=== PATIENT | male | born 1955 | race Caucasian/White ===

== ENCOUNTER 2024-05-22 19:43 | Emergency (ER) | payer MEDICARE, SELFPAY ==
[2024-05-22] VITALS (9 sets, daily range): BP systolic 101–142; BP diastolic 61–82; PULSE 94–115; RESP 18–28; TEMP 36.7; O2SAT 93–94; BMI 19.8
--- NOTE | 2024-05-22 19:55 | PC.NURSE ---
patient bladder scanned with 882 in bladder noted. Spoke with Dr. Calhoun who orders gonzalez catheter to be placed.
[2024-05-22 20:14] LABS: Microscopic, Urine URINE MICROSCOPIC (MICROSCOPIC)
[2024-05-22 20:50] LABS: Basophils % 0.2 % (0.1-2.0); Eosinophils # 0.2 K/mm3 (0.0-0.4); Eosinophils % 1.6 % (0.1-12.0); Hematocrit 42.9 % (42.0-52.0); Hemoglobin 14.7 g/dL (14.1-18.0); Lymphocytes # 0.4 K/mm3 (0.7-4.5); Lymphocytes % 3.8 % (10-50); Mean Corpuscular HGB Conc 34.2 g/dL (31.8-35.4); Mean Corpuscular Hemoglobin 31.3 pg (27.0-31.2); Mean Corpuscular Volume 91.6 fl (80-94); Mean Platelet Volume 7.8 fl (7.4-10.4); Monocytes # 0.8 K/mm3 (0.1-1.0); Monocytes % 7.1 % (1.7-9.3); Neutrophils # 9.4 K/mm3 (1.8-7.8); Neutrophils % 87.2 % (37.0-80.0); Platelet Count 178 K/mm3 (142-424); Red Blood Count 4.68 M/mm3 (4.60-6.20); Red Cell Distribution Width 13.6 % (11.5-17.5); White Blood Count 10.7 K/mm3 (4.8-10.8)
[2024-05-22 20:52] LABS: MANUAL DIFFERENTIAL MANUAL DIFFERENTIAL (MANUAL DIFF)
[2024-05-22 21:26] LABS: Lymphocytes % 7 % (10-50); Monocytes % 1 % (2-9); Neutrophils % 91 % (42-76); Total Cells Counted 100
[2024-05-22 21:27] LABS: RBC Morphology Normal
[2024-05-22 21:28] LABS: Appearance,Urine CLEAR (Clear); Bilirubin,Urine Negative (Negative); Blood, Urine 3+ (Negative); Color,Urine YELLOW (Yellow); Glucose,Urine (UA) Negative (Negative); Ketones,Urine Negative (Negative); Leukocyte Esterase,Urine Negative (Negative); Nitrate,Urine Negative (Negative); Protein,Urine Negative (Negative); Urobilinogen,Urine 0.2 EU/dl (0.2)
[2024-05-22 21:29] LABS: Alanine Aminotransferase 22 U/L (12-78); Albumin Level 3.9 g/dl (3.5-5.0); Albumin/Globulin Ratio 1.3 (1.1-1.8); Alkaline Phosphatase 80 U/L (38-126); Anion Gap 8.8 mEq/L (5-15); Aspartate Amino Transferase 60 U/L (17-59); Bilirubin,Total 1.1 mg/dl (0.2-1.3); Blood Urea Nitrogen 25 mg/dl (9-20); Calcium 9.7 mg/dl (8.4-10.2); Carbon Dioxide 27 mmol/L (22.0-30.0); Chloride 107 mmol/L (98-107); Creatinine Clearance Estimated 59 mL/min (50-200); Estimated Glomerular Filt Rate 74 ml/min (>60); GFR (African American) 90 ML/MIN (>60); Glucose 123 mg/dl (74-100); Potassium 3.8 mmoL/L (3.5-5.1); Sodium 139 mmol/L (136-145); Total Protein,Serum 6.9 g/dl (6.3-8.2)
--- NOTE | 2024-05-22 21:40 | ED_ITS ---
Discharge Plan Disposition Patient Disposition: Home, Self-Care Referrals Follow up/Referrals: Jluis Sexton MD [Staff Physician] - See instructions Provider,MD Mili [Primary Care Provider] - See instructions Activity Restrictions/Add. Instructions Additional Instructions/Restrictions: Call your family doctor to establish care for this visit to the emergency department and schedule follow-up within 48 hours to ensure improvement. If you have any worsening of your condition or any other concerning signs or symptoms, return to the emergency department or your primary care doctor for further evaluation. Be sure to clean Villarreal catheter daily as instructed. Follow-up with Dr. Sexton for further management. Clinical Impressions Clinical Impression: Acute urinary retention Instructions Patient Instructions: DI for Acute Abdominal Pain Discharge ED Provider: Maxx Calhoun General Adult HPI General Chief complaint: Abdominal Pain Stated complaint: ABD pain Time Seen by Provider: 05/22/24 19:56 Mode of Arrival: EMS Source of Information: Patient and EMS Limitations: unsteady on feet Description of Symptoms (Recalled from ER Triage Doc. by RN): Pt. presented to the ED with c/o abdominal pain and unable to urinate. Pt. also has HX lung cancer and COPD, Pt, has congested cough. History of Present Illness HPI narrative: Please note that above description of symptoms, in this electronic medical record under categorization of recalled from ER triage doctor by RN are reflective of an initial nursing assessment, however, is not reflective of my full history and physical exam that was personally taken and clarified. Consequentially, this preceding description of symptoms, which may include the patient's categorized chief complaint in the EMR, do not reflect my personal clinical impression, and the ultimate description of history of present illness and patient stated complaints should be deferred to this section of the note. Unless stated otherwise or congruent with this section of the note, additional signs, symptoms, or incongruence should be interpreted as inaccurate with my clinical impression. Related Data Allergies Allergy/AdvReac Type Severity Reaction Status Date / Time No Known Allergies Allergy Verified 05/22/24 20:07 [facility] Disclaimer: The information contained in this section may have been updated after the patient was seen, as this information can be updated by other users. Social History Smoking Status: Current every day smoker alcohol intake: former current occupational status: unemployed Travel in the last 8 weeks: None ROS Obtained: Yes All systems reviewed & no additional complaints except as documented Physical Exam General General appearance: alert and in no apparent distress Head Head exam: atraumatic and normocephalic Eye Eye exam: Present normal appearance, PERRL and EOMI ENT ENT exam: Present mucous membranes moist Neck Neck exam: Present normal inspection, full ROM and trachea midline Respiratory Respiratory exam: Absent respiratory distress, wheezes, stridor, accessory muscle use or prolonged expiratory phase Cardiovascular Cardiovascular exam: Present normal rhythm Abdominal Exam Abdominal exam: Present soft, distention and tenderness; Absent guarding, rebound or rigidity Extremities Exam Extremities exam: Absent edema Neurological Exam Neurological exam: Present alert, oriented X3, CN II-XII intact and normal gait; Absent motor sensory deficit Skin Skin exam: Present warm and dry; Absent diaphoresis or erythema Medical Decision Making Medical Records Medical records reviewed: Yes I reviewed the patient's medical records. Aiden Inquiry Pt receiving controlled substance: No Aiden was queried for this patient: No Vital Signs: 05/22/24 19:43 Temperature 98.1 F Temperature Source Oral Pulse Rate [Right Radial] 115 H Respiratory Rate 28 H Blood Pressure [Right Arm] 142/79 H Blood Pressure Mean [Right Arm] 100 Blood Pressure Source [Right Arm] Automatic Cuff Blood Pressure Position [Right Arm] Supine 02 Sat by Pulse Oximetry 93 L Oxygen Delivery Method Room Air Lab Data Lab Results 05/22/24 20:02: Urine Color Yellow, Urine Appearance Clear, Urine pH 6.0, Ur Specific [place] 1.020, Urine Protein Negative, Urine Glucose (UA) Negative, Urine Ketones Negative, Urine Blood 3+, Urine Nitrate Negative, Urine Bilirubin Negative, Urine Urobilinogen 0.2, Ur Leukocyte Esterase Negative, Urine RBC 50- 100, Urine WBC Occasional, Ur Squamous Epith Cells Occasional, Urine Bacteria Trace 05/22/24 20:40: WBC 10.7, RBC 4.68, Hgb 14.7, Hct 42.9, MCV 91.6, MCH 31.3 H, MCHC 34.2, RDW 13.6, Plt Count 178, MPV 7.8, Neut % (Auto) 87.2 H, Lymph % (Auto) 3.8 L, [place] % (Auto) 7.1, Eos % (Auto) 1.6, Baso % (Auto) 0.2, Neut # (Auto) 9.4 H, Lymph # (Auto) 0.4 L, [place] # (Auto) 0.8, Eos # (Auto) 0.2, Baso # (Auto) 0.0, Total Counted 100, Neutrophils % (Manual) 91 H, Lymphocytes % (Manual) 7 L, Atypical Lymphs % 1.0, Monocytes % (Manual) 1 L, RBC Morphology Normal, Sodium 139, Potassium 3.8, Chloride 107, Carbon Dioxide 27, Anion Gap 8.8, BUN 25 H, Creatinine 1.00, Estimated Creat Clear 59, Estimated GFR 74, Est GFR ( Amer) 90, Glucose 123 H, Calcium 9.7, Total Bilirubin 1.1, AST 60 H , ALT 22, Alkaline Phosphatase 80, Total Protein 6.9, Albumin 3.9, Globulin 3.0, Albumin/Globulin Ratio 1.3 05/22/24 20:40 05/22/24 20:40 Orders (Tests/Meds): ORDERS Category Date Time Status CBC w/Auto Diff [Complete Blood Count Auto Diff] Stat Lab 05/22/24 20:40 Completed CMP [Comprehensive Metabolic Panel] Stat Lab 05/22/24 20:40 Completed UA [Urinalysis and Microscopic] Stat Lab 05/22/24 20:02 Completed Medical Decision Narrative: 68-year-old male history of hypertension, hyperlipidemia, CVA, BPH presenting with urinary retention. Patient states that he was unable to urinate since last night, 05/21 or this morning, 05/22. States that he has tenderness, pain in his lower abdomen. No fevers or chills, nausea or vomiting. Had pain with this in the past and had complications, but has never had it worked up fully. States that he was in the process of getting it worked up when he had his stroke and never followed up. History was obtained via conversation with patient. On arrival, patient hemodynamically stable, alert, oriented x4, appropriate, GCS 15, moving all extremities spontaneously, pupils equal and reactive to light. Full physical exam performed and significant for uncomfortable appearing 68-year-old male in no acute distress. Abdomen is soft and mildly tender and distended in suprapubic area. No overlying skin changes. No flank tenderness. No blood at urethral meatus. Differential includes BPH, UTI, CELSO, among others. Bladder scan greater than 800. Villarreal catheter was placed and anchored. Greater than 1200 mL out. Interpretation of workup with nonactionable CBC or chemistry. Normal kidney function. Urinalysis without UTI. Because patient at baseline without signs or symptoms of clinical decompensation, deemed appropriate for discharge. Results were relayed to patient who voiced understanding and were agreeable to outpatient management and follow up. I discussed my clinical impression with patient and answered all questions. At this time, the evidence for any other entities in the differential is insufficient to warrant any further testing or ED observation. This was explained as well. Advisory was given that persistent or worsening symptoms require further evaluation. I confirmed the understanding of this discussion. Senior Web Analyst disclaimer Much of this encounter note is an electronic bag end sewer spoken language to printed text. Electronic bag end sewer of the spoken language may permit errors. Although I have reviewed the note, some errors may still exist. Critical Care Critical Care Time Critical Care Time: No
[2024-05-22 21:51] LABS: Bacteria,Urine Trace /lpf; RBC,Urine 50-100 #/hpf (0-3); Squamous Epithelial Cell,Urine Occasional #/hpf (0-5); WBC,Urine Occasional #/hpf (0-3)
--- NOTE | 2024-05-22 22:37 | PC.NURSE ---
SALLY spoke with patient daughter, Rosa. She reports that she lives in [place] and is currently working on patient transportation back to [facility] in [place], [place]
--- NOTE | 2024-05-22 23:17 | PC.NURSE ---
Pt. resting, unable to get a hold of family or friendfor a ride home
[2024-05-23] VITALS (10 sets, daily range): BP systolic 96–133; BP diastolic 41–67; PULSE 60–108; RESP 12–23; TEMP 36.7; O2SAT 93–98
--- NOTE | 2024-05-23 | PC.NURSE ---
Patient resting in room at this time. No complaints. Still unable to find patient transportation home at this time. Provided pt with blanket, and offered food and water. Pt declined at this time.
--- NOTE | 2024-05-23 01:00 | PC.NURSE ---
Patient provided sandwich and chips per request, along with ice water. Tray set up, and patient positioned to comfort. No further needs voiced.
--- NOTE | 2024-05-23 02:00 | PC.NURSE ---
Patient asleep in room on stretcher. Breaths even, unlabored at this time.
--- NOTE | 2024-05-23 03:00 | PC.NURSE ---
Patient asleep in room at this time. Respirations even and unlabored. Still awaiting callback from daughter about patient transportation
--- NOTE | 2024-05-23 04:12 | PC.NURSE ---
Pt. sleeping, vital signs stable.
--- NOTE | 2024-05-23 04:15 | PC.WOUNDNOTE ---
Patient is asleep in room. vital signs stable, Resp easy and non labored. awaiting call back from family about transportation.
--- NOTE | 2024-05-23 05:13 | PC.NURSE ---
pt resting quietly. call light within reach
--- NOTE | 2024-05-23 06:00 | PC.NURSE ---
Patient resting in bed at this time. Respirations even and unlabored
--- NOTE | 2024-05-23 08:52 | PC.NURSE ---
spoke with bus transportation for pt. states the client account representative will call when they are in route. approx 3 hours or less. trip # [id number]
--- NOTE | 2024-05-23 10:05 | PC.NURSE ---
danielle gonzalez is in place at this time pt is waiting for bus for ride home call light in reach and warm blanket given no other needs at this time
== END 2024-05-23 11:41 | disposition home or self-care (01) ==
PROVIDERS: Emergency Provider Emergency Medicine
DX: R10.30 Lower abdominal pain, unspecified; F17.210 Nicotine dependence, cigarettes, uncomplicated; I10 Essential (primary) hypertension; E78.5 Hyperlipidemia, unspecified; N40.0 Benign prostatic hyperplasia without lower urinary tract symptoms; R33.9 Retention of urine, unspecified
CPT/HCPCS: 51702; 80053; 81001; 85007; 85025; 85027; 99283

== ENCOUNTER 2024-05-24 20:25 | Emergency (ER) | payer MEDICARE, SELFPAY ==
[2024-05-24 20:25] VITALS: BP 157/79; PULSE 92; RESP 18; TEMP 36.3; O2SAT 96; BMI 20.5
--- NOTE | 2024-05-24 21:30 | ED_ITS ---
Discharge Plan Disposition Patient Disposition: Home, Self-Care Prescriptions Prescriptions: New levofloxacin 750 mg tablet 750 mg PO DAILY 7 Days Qty: 7 0RF Referrals Follow up/Referrals: Jluis Sexton MD [Staff Physician] - See instructions Provider,MD Mili [Primary Care Provider] - See instructions Activity Restrictions/Add. Instructions Additional Instructions/Restrictions: At this time it was felt you are safe to be discharged home. If new or worsening symptoms please do not hesitate to return the emergency department. Please call and schedule an appointment with Dr. Sexton as soon as you are able. Clinical Impressions Clinical Impression: Gonzalez catheter in place, Acute UTI Instructions Patient Instructions: DI for Acute Abdominal Pain Discharge ED Provider: Sujit Muller General Adult HPI General Chief complaint: Abdominal Pain Stated complaint: issues with catheter Time Seen by Provider: 05/24/24 20:59 Mode of Arrival: EMS Source of Information: Patient and EMS Limitations: No Limitations Description of Symptoms (Recalled from ER Triage Doc. by RN): Patient is brought to ED via [facility] and reports abd pain, nasuea, and pain from gonzalez catheter that patient was d/c with last night. Patient states he has no one to help assist in care at home. History of Present Illness HPI narrative: Patient is a 68-year-old male who presents emergency department for evaluation of things related to his catheter. Patient states that he has had difficulty peeing for a long time and has problems with his prostate. He presented yesterday where reportedly Gonzalez was anchored and he was not instructed how to empty it. Today his bag filled up and he began having suprapubic pain and he did not have to empty it so he called 911 to present here for continued evaluation. He has some suprapubic pain upon arrival, no other acute complaints at this time. Per chart review patient was seen by Dr. Calhoun and was found to be in acute urinary retention where Gonzalez was anchored and had improvement of symptoms, hematologic labs are nonactionable. He was discharged with Dr. Sexton follow-up. Review of urinalysis from yesterday shows hematuria in the setting of anchoring the Gonzalez, no evidence of infection although trace bacteria. Related Data Previous Rx's Medication Instructions Recorded levofloxacin 750 mg tablet 750 mg PO DAILY UTI 7 days #7 tabs 05/24/24 Allergies Allergy/AdvReac Type Severity Reaction Status Date / Time No Known Allergies Allergy Verified 05/22/24 20:07 [facility] Disclaimer: The information contained in this section may have been updated after the patient was seen, as this information can be updated by other users. Social History (Updated 05/22/24 @ 22:50 by Maxx Calhoun MD) Smoking Status: Current every day smoker alcohol intake: former current occupational status: unemployed Travel in the last 8 weeks: None ROS Obtained: Yes Systems reviewed as appropriate & no additional complaints except as documented Physical Exam General General appearance: alert and in no apparent distress Head Head exam: atraumatic and normocephalic Eye Eye exam: Present PERRL ENT ENT exam: Present mucous membranes moist Neck Neck exam: Present normal inspection Chest Chest inspection: Present normal inspection and symmetric chest wall rise Respiratory Respiratory exam: Absent respiratory distress Cardiovascular Cardiovascular exam: Present regular rate and normal rhythm Abdominal Exam Abdominal exam: Present soft; Absent tenderness, guarding or rebound Extremities Exam Extremities exam: Present normal inspection Neurological Exam Neurological exam: Present alert Psychiatric Psychiatric exam: Present normal affect Skin Skin exam: Present warm and dry Medical Decision Making Aiden Inquiry Pt receiving controlled substance: No Vital Signs: 05/24/24 20:25 Temperature 97.4 F L Temperature Source Oral Pulse Rate [Right Radial] 92 H Respiratory Rate 18 Blood Pressure [Right Arm] 157/79 H Blood Pressure Mean [Right Arm] 105 Blood Pressure Source [Right Arm] Automatic Cuff Blood Pressure Position [Right Arm] Supine 02 Sat by Pulse Oximetry 96 Oxygen Delivery Method Room Air Lab Data Lab Results 05/24/24 20:27: WBC 7.3 D, RBC 4.84, Hgb 15.2, Hct 45.9, MCV 94.9 H, MCH 31.5 H , MCHC 33.2, RDW 13.7, Plt Count 164, MPV 9.1, Neut % (Auto) 83.4 H, Lymph % (Auto) 8.5 L, [place] % (Auto) 6.1, Eos % (Auto) 1.6, Baso % (Auto) 0.4, Neut # (Auto) 6.1, Lymph # (Auto) 0.6 L, [place] # (Auto) 0.4, Eos # (Auto) 0.1, Baso # (Auto) 0.0, Sodium 143, Potassium 3.6, Chloride 106, Carbon Dioxide 32 H, Anion Gap 8.6, BUN 26 H, Creatinine 0.90, Estimated Creat Clear 61, Estimated GFR 84, Est GFR ( Amer) 102, Glucose 96, Calcium 9.6, Total Bilirubin 0.7, AST 38 D, ALT 21, Alkaline Phosphatase 76, Total Protein 7.4, Albumin 4.0, Globulin 3.4 H, Albumin/Globulin Ratio 1.2 05/24/24 20:29: Urine Color Dark yellow, Urine Appearance Cloudy, Urine pH 6.0, Ur Specific [place] 1.025, Urine Protein 1+, Urine Glucose (UA) Negative, Urine Ketones Negative, Urine Blood 3+, Urine Nitrate Negative, Urine Bilirubin 1+ A, Urine Urobilinogen 0.2, Ur Leukocyte Esterase Negative, Urine RBC Occasional, Urine WBC 3-5, Ur Squamous Epith Cells Occasional, Urine Bacteria 4+ 05/24/24 20:27 05/24/24 20:27 Orders (Tests/Meds): ED MEDICATIONS Discontinued Medications Generic Name Dose Route Start Last Admin Trade Name Samina PRN Reason Stop Dose Admin Acetaminophen 1,000 mg 05/24/24 21:31 05/24/24 21:46 Acetaminophen 1,000mg/100ml Vial IV 05/24/24 21:32 1,000 mg ONCE ONE Administration Ondansetron HCl 4 mg 05/24/24 21:31 05/24/24 21:46 Ondansetron 4mg/2ml Vial IV 05/24/24 21:32 4 mg ONCE ONE Administration ORDERS Category Date Time Status CBC w/Auto Diff [Complete Blood Count Auto Diff] Stat Lab 05/24/24 20:27 Completed CMP [Comprehensive Metabolic Panel] Stat Lab 05/24/24 20:27 Completed UA [Urinalysis and Microscopic] Stat Lab 05/24/24 20:29 Completed Urine Culture Stat Micro 05/24/24 20:29 Received Medical Decision Narrative: In summary patient is a 68-year-old male with past medical history described above who presents emergency department for evaluation of Gonzalez complications. Patient is hemodynamically stable nontoxic-appearing arrival, afebrile. Patient is only mildly tender in the suprapubic region, no focal tenderness otherwise. Gonzalez catheter was emptied and Gonzalez care was educated at bedside. Workup be conducted with hematologic labs and repeat urinalysis will be obtained to trend and assess for interval changes. Initial interventions include Zofran, IV Tylenol. Initial workup reviewed by me, hematologic labs are nonactionable, no CELSO or critical electrolyte abnormality, no significant leukocytosis. Urinalysis interpreted by me and not consistent with overt infection however given that patient has indwelling Gonzalez, 4+ bacteria and suprapubic discomfort will be treated empirically for complicated UTI with fluoroquinolone. First dose will be given here. Patient is appropriate for outpatient management at this time and was discharged with a course of antibiotics and will follow-up on an outpatient basis with Dr. Sexton. Critical Care Critical Care Time Critical Care Time: No
[2024-05-24 21:34] LABS: Microscopic, Urine URINE MICROSCOPIC (MICROSCOPIC)
[2024-05-24 21:38] LABS: Chloride 106 mmol/L (98-107)
[2024-05-24 21:39] LABS: Potassium 3.6 mmoL/L (3.5-5.1); Sodium 143 mmol/L (136-145)
[2024-05-24 21:41] LABS: Appearance,Urine CLOUDY (Clear); Blood, Urine 3+ (Negative); Color,Urine DARK YELLOW (Yellow); Glucose,Urine (UA) Negative (Negative); Ketones,Urine Negative (Negative); Leukocyte Esterase,Urine Negative (Negative); Nitrate,Urine Negative (Negative); Protein,Urine 1+ (Negative); Specific Gravity, Urine 1.025 (1.005-1.030); Urobilinogen,Urine 0.2 EU/dl (0.2)
[2024-05-24 21:41] LABS: Alanine Aminotransferase 21 U/L (12-78); Albumin/Globulin Ratio 1.2 (1.1-1.8); Alkaline Phosphatase 76 U/L (38-126); Anion Gap 8.6 mEq/L (5-15); Aspartate Amino Transferase 38 U/L (17-59); Bilirubin,Total 0.7 mg/dl (0.2-1.3); Blood Urea Nitrogen 26 mg/dl (9-20); Carbon Dioxide 32 mmol/L (22.0-30.0); Creatinine Clearance Estimated 61 mL/min (50-200); Estimated Glomerular Filt Rate 84 ml/min (>60); GFR (African American) 102 ML/MIN (>60); Globulin 3.4 g/dL (1.3-3.2); Total Protein,Serum 7.4 g/dl (6.3-8.2)
[2024-05-24 21:42] LABS: Calcium 9.6 mg/dl (8.4-10.2); Glucose 96 mg/dl (74-100)
[2024-05-24 21:45] LABS: Basophils % 0.4 % (0.1-2.0); Eosinophils # 0.1 K/mm3 (0.0-0.4); Eosinophils % 1.6 % (0.1-12.0); Hematocrit 45.9 % (42.0-52.0); Hemoglobin 15.2 g/dL (14.1-18.0); Lymphocytes # 0.6 K/mm3 (0.7-4.5); Lymphocytes % 8.5 % (10-50); Mean Corpuscular HGB Conc 33.2 g/dL (31.8-35.4); Mean Corpuscular Hemoglobin 31.5 pg (27.0-31.2); Mean Corpuscular Volume 94.9 fl (80-94); Mean Platelet Volume 9.1 fl (7.4-10.4); Monocytes # 0.4 K/mm3 (0.1-1.0); Monocytes % 6.1 % (1.7-9.3); Neutrophils # 6.1 K/mm3 (1.8-7.8); Neutrophils % 83.4 % (37.0-80.0); Platelet Count 164 K/mm3 (142-424); Red Blood Count 4.84 M/mm3 (4.60-6.20); Red Cell Distribution Width 13.7 % (11.5-17.5); White Blood Count 7.3 K/mm3 (4.8-10.8)
[2024-05-24] MEDS: ACETAMINOPHEN 1,000MG/100ML VIAL 1000 MG IV (21:46)
[2024-05-24] MEDS: ONDANSETRON 4MG/2ML VIAL 4 MG IV (21:46)
[2024-05-24 22:01] VITALS: BP 142/80; PULSE 100
[2024-05-24 22:01] LABS: Bilirubin,Urine 1+ (Negative)
[2024-05-24 22:06] LABS: Bacteria,Urine 4+ /lpf; RBC,Urine Occasional #/hpf (0-3); Squamous Epithelial Cell,Urine Occasional #/hpf (0-5)
[2024-05-24 22:31] VITALS: BP 121/61; PULSE 91; O2SAT 95
[2024-05-24 23:00] VITALS: BP 97/53; O2SAT 94
[2024-05-24] MEDS: levoFLOXacin 750 MG TABLET PO (23:05)
[2024-05-24 23:30] VITALS: BP 83/54; PULSE 82
[2024-05-25] VITALS (9 sets, daily range): BP systolic 90–124; BP diastolic 54–82; PULSE 72–86; RESP 18; TEMP 36.8; O2SAT 91–95
--- NOTE | 2024-05-25 02:53 | PC.NURSE ---
Patient states he can not take care of himself at home, went into room and reassessed patient. Patient is able to open a water bottle independently, and will be able to empty his Villarreal bag at home. Detailed instructions and visual was given to patient when he first arrived to ED on how to empty Villarreal bag. Patient states he has no family/friends to transport back home at this time. Patient will have to wait for city transport in the AM to return back home. Patient voices no pain/concerns at this time.
--- NOTE | 2024-05-25 07:38 | PC.NURSE ---
attempted to call mr bauman brother (x2)who is listed in his contacts no answer
--- NOTE | 2024-05-25 07:45 | PC.NURSE ---
spoke with froy in care managment states [facility] can take him back but will be considered self pay, pt will have to pay $25 for his ride home. I spoke with pt asking if he was able to pay $25 for the bus ride home and he stated he does not have the money on him.
--- NOTE | 2024-05-25 07:50 | PC.NURSE ---
pt demonstrated using his gonzalez leg bag to empty his urine into the urinal, pt did this successful.
--- NOTE | 2024-05-25 07:58 | PC.NURSE ---
Spoke with pt who states that he is concerned for outpt services for him to fu for his gonzalez, contacted Coretta in for additional information in arranging this for pt, unfortunately there is no available services in [facility] for this other than the transportation van which the pt will have to pay for.
--- NOTE | 2024-05-25 08:12 | PC.NURSE ---
pt is upset because we will not admit him here to take care of his gonzalez, cause he states he dont want to take care of his gonzalez and feels that he needs someone else to do that for him. Educated the pt on admission criteria for the hospital and our facility doesn't offer inpt urologist. Asked pt if he would like to look into a retirement if he felt he was unable to care for his self, pt states that he cant afford that cause his insurance wont pay for that but it will pay for admission and we are a hospital and we should admit for treatment. Discussed pt concern with , at this time MD feels that pt does not have admission criteria.
--- NOTE | 2024-05-25 08:52 | PC.NURSE ---
attempted to call brother with no answer.
--- NOTE | 2024-05-25 09:18 | PC.NURSE ---
PT given funds by [facility] for the [facility] to travel home.
--- NOTE | 2024-05-25 09:36 | SW/DCPLANNER ---
I have arranged [facility] [employer] for this patient. ID [id number]
== END 2024-05-25 10:20 | disposition home or self-care (01) ==
PROVIDERS: Emergency Provider Emergency Medicine
DX: T83.511A Infection and inflammatory reaction due to indwelling urethral catheter, initial encounter (principal); B96.1 Klebsiella pneumoniae [K. pneumoniae] as the cause of diseases classified elsewhere; F17.210 Nicotine dependence, cigarettes, uncomplicated; Z96.0 Presence of urogenital implants; N39.0 Urinary tract infection, site not specified
CPT/HCPCS: 80053; 81001; 85025; 87086; 87088; 87186; 96361; 96374; 96375; 99284; J0131; J2405

== ENCOUNTER 2024-06-11 16:02 | Outpatient (CLI) | payer MEDICARE, SELFPAY ==
[2024-06-11 18:05] LABS: Microscopic, Urine URINE MICROSCOPIC (MICROSCOPIC)
[2024-06-11 19:24] LABS: Appearance,Urine TURBID (Clear); Blood, Urine 3+ (Negative); Color,Urine RED (Yellow); Glucose,Urine (UA) TRACE (Negative); Ketones,Urine 2+ (Negative); Leukocyte Esterase,Urine 2+ (Negative); Nitrate,Urine POSITIVE (Negative); PH,Urine >= 9.0 (5.0-8.5); Protein,Urine 3+ (Negative); Specific Gravity, Urine <= 1.005 (1.005-1.030)
[2024-06-11 19:25] LABS: Bilirubin,Urine 3+ (Negative)
[2024-06-11 19:46] LABS: Bacteria,Urine 2+ /lpf; RBC,Urine 20-50 #/hpf (0-3)
[2024-06-11 19:47] LABS: Other Crystals,Urine Trace /lpf; Squamous Epithelial Cell,Urine Occasional #/hpf (0-5); Triple Phosphate Crystal,Urine 1+ /lpf
== END 2024-06-11 23:59 | disposition home or self-care (01) ==
LOC: LAB.DROPOF 06-12 10:11
PROVIDERS: PCP Nurse Practitioner; Visit Provider Nurse Practitioner
DX: N39.0 Urinary tract infection, site not specified (principal); B96.89 Other specified bacterial agents as the cause of diseases classified elsewhere
CPT/HCPCS: 81001; 87077; 87086; 87088

== ENCOUNTER 2024-06-15 21:58 | Observation (INO) | payer MEDICARE, SELFPAY ==
[2024-06-15 21:58] VITALS: BP 140/88; PULSE 127; RESP 20; TEMP 36.9; O2SAT 95; BMI 19.0
--- NOTE | 2024-06-15 22:04 | CT_ITS ---
PROCEDURE INFORMATION: Exam: CT Abdomen And Pelvis With Contrast Exam date and time: 06/15/2024 11:04 PM Age: 68 years old Clinical indication: Abdominal pain; Additional info: Lower abdominal pain TECHNIQUE: Imaging protocol: Computed tomography of the abdomen and pelvis with contrast. Radiation optimization: All CT scans at this facility use at least one of these dose optimization techniques: automated exposure control; mA and/or kV adjustment per patient size (includes targeted exams where dose is matched to clinical indication); or iterative reconstruction. Contrast material: ISOVUE; Contrast volume: 75 ml; Contrast route: IV; COMPARISON: No relevant prior studies available. FINDINGS: Tubes, catheters and devices: Villarreal catheter is present. Lungs: The visualized lung bases demonstrate no focal infiltrates or pleural effusions. Liver: The liver appears within normal limits. Gallbladder and biliary ducts: The gallbladder is normal. There is no evidence of biliary ductal dilation. Pancreas: The pancreas is normal. Spleen: The spleen is normal. Adrenal glands: Right adrenal adenoma measures 18 mm. Kidneys and ureters: The kidneys are normal. Stomach and bowel: The stomach appears within normal limits. No wall thickening or inflammatory change. Moderate retained stool within the cecum, ascending and transverse colon. The cecum in particular is significantly distended with stool and there is the presence of a mobile cecum which extends into the midline at the level of the upper pelvis. There are changes of diverticulosis without evidence for diverticulitis noted within the sigmoid colon.. Appendix: No evidence of appendicitis. Intraperitoneal space: No free air. No evidence for focal fluid collection or ascites. No evidence for omental thickening. Vasculature: Severe atherosclerotic calcifications of the aorta. 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 High-grade stenosis within the remainder of the right external iliac artery. Lymph nodes: Unremarkable. No pathologically enlarged lymph nodes are identified. Urinary bladder: Hyperenhancement of the mucosa of the bladder with bladder wall thickening and surrounding stranding suggesting acute cystitis. Bladder is otherwise normal. There is a small amount of intraluminal air consistent with instrumentation. Reproductive: Mild diffuse enlargement of the prostate gland. Prostate measures 5 cm diameter. Bones/joints: Unremarkable. No acute fracture. Soft tissues: Unremarkable. IMPRESSION: 1. Hyperenhancement of the mucosa of the bladder with bladder wall thickening and surrounding stranding suggesting acute cystitis. 2. Moderate retained stool within the cecum, ascending and transverse colon. The cecum in particular is significantly distended with stool and there is the presence of a mobile cecum which extends into the midline at the level of the upper pelvis. 3. Diverticulosis without CT evidence to suggest diverticulitis. 4. Mild diffuse enlargement of the prostate gland. Prostate measures 5 cm diameter. 5. 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 High-grade stenosis within the remainder of the right external iliac artery.
--- NOTE | 2024-06-15 22:13 | ED_ITS ---
Discharge Plan Disposition Patient Disposition: Admitted Clinical Impressions Clinical Impression: Complication, blocked Villarreal catheter, Abdominal pain, lower, Hematuria, CELSO (acute kidney injury), Transaminitis, Chronic UTI Discharge ED Provider: Andrew Kendall General Adult HPI <Adriana Wolfe DO - Last Filed: 06/15/24 23:00> General Chief complaint: Abdominal Pain Stated complaint: Abdominal Pain Time Seen by Provider: 06/15/24 22:03 History of Present Illness HPI narrative: This patient is a 68-year-old male with a history of urinary retention with indwelling Villarreal catheter, peripheral vascular disease, mood disorder, prior CVA, hyperlipidemia, anticoagulation with Eliquis presenting with concern for lower abdominal pain. He notes that he feels like he needs to be but cannot. He states that he emptied a very small amount of urine out of his leg bag around 3 PM, but it has had no urine in it since then. He does note that he is on antibiotic treatment for urinary tract infection, which has been on for approximately 2 weeks. He is not sure what he is taking. On medical record review from his primary care provider, it appears that he was seen and was taken off of Levaquin and prescribed Bactrim 06/11/2024. He was also given urology referral, but it appears he is not yet seen them. He was given a dose of IM Rocephin at that time. I believe his Villarreal has been in place since he was here at the beginning of May. Related Data Home Medications ?Medication ?Instructions ?Recorded ?Confirmed apixaban 5 mg tablet 5 mg PO BID 06/11/24 06/11/24 aspirin 81 mg tablet,delayed 81 mg PO DAILY 06/11/24 06/11/24 release (Adult Aspirin Regimen) atorvastatin 40 mg tablet (Lipitor) 40 mg PO HS 06/11/24 06/11/24 calcium carbonate 500 mg-vitamin 1 tab PO BID 06/11/24 06/11/24 D3 10 mcg (400 unit) tablet carvedilol 3.125 mg tablet 3.125 mg PO BID 06/11/24 06/11/24 ergocalciferol (vitamin D2) 1,250 1,250 mcg PO WEEKLY 06/11/24 06/11/24 mcg (50,000 unit) capsule fluticasone fur. 100 mcg-umeclid 1 inh inhalation DAILY 06/11/24 06/11/24 62.5 mcg-vilant 25 mcg inhalat.powder (Trelegy Ellipta) sertraline 50 mg tablet 50 mg PO DAILY 06/11/24 06/11/24 Previous Rx's ?Medication ?Instructions ?Recorded sulfamethoxazole 800 1 tab PO BID #20 tabs 06/11/24 mg-trimethoprim 160 mg tablet (Bactrim DS) Allergies Allergy/AdvReac Type Severity Reaction Status Date / Time No Known Allergies Allergy Verified 06/11/24 15:28 PFSH <Adriana Wolfe DO - Last Filed: 06/15/24 23:00> [facility] Disclaimer: The information contained in this section may have been updated after the patient was seen, as this information can be updated by other users. Medical History (Updated 06/15/24 @ 22:58 by Adriana Wolfe DO) Unspecified mood [affective] disorder Peripheral vascular disease Atherosclerosis of aorta Acute UTI Acute urinary retention Villarreal catheter in place Surgical History (Updated 06/16/24 @ 01:52 by Jorge Vaz, RAZIA) Previous back surgery Social History (Updated 06/16/24 @ 01:52 by Jorge Vaz, RAZIA) Smoking Status: Current every day smoker alcohol intake: former current occupational status: unemployed Travel in the last 8 weeks: None <Adriana Wolfe DO - Last Filed: 06/15/24 23:00> ROS Obtained: Yes All systems reviewed & no additional complaints except as documented Physical Exam <Adriana Wolfe DO - Last Filed: 06/15/24 23:00> General General appearance: alert and in no apparent distress Comment: Thin, frail, unkempt. Dried stool on his legs, dirty clothing. Head Head exam: atraumatic and normocephalic Eye Eye exam: Present normal appearance, PERRL and EOMI ENT ENT exam: Present normal exam, normal oropharynx, mucous membranes moist and normal external ear exam Neck Neck exam: Present normal inspection, full ROM and trachea midline; Absent tenderness Chest Chest inspection: Present normal inspection and symmetric chest wall rise; Absent tenderness Respiratory Respiratory exam: Present normal lung sounds bilaterally; Absent respiratory distress, wheezes, stridor or accessory muscle use Cardiovascular Cardiovascular exam: Present regular rate and normal rhythm Abdominal Exam Abdominal exam: Present distention (Suprapubic), tenderness (Suprapubic) and guarding (Suprapubic); Absent rebound or rigidity Expanded Exam exam: Present other (Villarreal catheter in place with no urine in the leg bag) Extremities Exam Extremities exam: Present normal inspection, full ROM and normal capillary refill; Absent tenderness or edema Back Exam Back exam: Present normal inspection and full ROM; Absent tenderness Neurological Exam Neurological exam: Present alert, oriented X3 and CN II-XII intact; Absent motor sensory deficit Psychiatric Psychiatric exam: Present flat affect Skin Skin exam: Present warm and dry Medical Decision Making <Adriana Wolfe, DO - Last Filed: 06/15/24 23:00> Medical Records Medical records reviewed: Yes I reviewed the patient's medical records. [place] Inquiry Pt receiving controlled substance: No Vital Signs: 06/15/24 21:58 06/15/24 22:17 06/15/24 23:26 Temperature 98.5 F Temperature Source Oral Pulse Rate 77 95 H Pulse Rate [Right Radial] 127 H Respiratory Rate 20 Blood Pressure 141/91 H 93/57 L Blood Pressure [Right Arm] 140/88 Blood Pressure Mean 69 Blood Pressure Mean [Right Arm] 105 Blood Pressure Source Blood Pressure Source [Right Arm] Automatic Cuff Blood Pressure Position Blood Pressure Position [Right Arm] Supine 02 Sat by Pulse Oximetry 95 97 94 L Oxygen Delivery Method Room Air Room Air 06/15/24 23:30 06/16/24 00:30 06/16/24 00:31 Temperature Temperature Source Pulse Rate 92 H Pulse Rate [Right Radial] Respiratory Rate Blood Pressure 89/48 L 97/60 L 94/60 L Blood Pressure [Right Arm] Blood Pressure Mean 61 Blood Pressure Mean [Right Arm] Blood Pressure Source Automatic Cuff Manual Cuff/ Auscultation Blood Pressure Source [Right Arm] Blood Pressure Position Sitting Blood Pressure Position [Right Arm] 02 Sat by Pulse Oximetry 94 L Oxygen Delivery Method Room Air 06/16/24 01:34 Temperature 98.2 F Temperature Source Pulse Rate 80 Pulse Rate [Right Radial] Respiratory Rate 12 Blood Pressure 93/58 L Blood Pressure [Right Arm] Blood Pressure Mean Blood Pressure Mean [Right Arm] Blood Pressure Source Blood Pressure Source [Right Arm] Blood Pressure Position Blood Pressure Position [Right Arm] 02 Sat by Pulse Oximetry Oxygen Delivery Method Room Air Lab Data Lab results reviewed: Yes I reviewed the patient's lab results. Lab Results 06/15/24 22:18: Urine Color Yellow, Urine Appearance Clear, Urine pH 8.5, Ur Specific [place] 1.010, Urine Protein 3+, Urine Glucose (UA) Negative, Urine Ketones Negative, Urine Blood 2+, Urine Nitrate Positive, Urine Bilirubin 1+ A, Urine Urobilinogen 1.0, Ur Leukocyte Esterase 2+ A, Urine RBC 3-5, Urine WBC 3- 5, Ur Squamous Epith Cells Occasional, Urine Bacteria 2+, Urine Mucus 4+ 06/15/24 22:30: WBC 8.9, RBC 4.99, Hgb 15.3, Hct 46.5, MCV 93.1, MCH 30.6, MCHC 32.9, RDW 13.7, Plt Count 199, MPV 8.4, Neut % (Auto) 88.6 H, Lymph % (Auto) 5.3 L, [place] % (Auto) 5.0, Eos % (Auto) 0.9, Baso % (Auto) 0.3, Neut # (Auto) 7.9 H, Lymph # (Auto) 0.5 L, [place] # (Auto) 0.4, Eos # (Auto) 0.1, Baso # (Auto) 0.0, Total Counted 100, Neutrophils % (Manual) 94 H, Lymphocytes % (Manual) 5 L, Eosinophils % (Manual) 1, Platelet Estimate Normal, RBC Morphology Normal, PT 10.1, INR 0.89 L, APTT 23.7, Sodium 145, Potassium 4.3, Chloride 113 H, Carbon Dioxide 26, Anion Gap 10.3, BUN 39 H, Creatinine 2.00 H, Estimated Creat Clear 28, Estimated GFR 33 L, Est GFR ( Amer) 40 L, Glucose 136 H, Calcium 9.8, Total Bilirubin 0.6, AST 153 H, ALT 135 H, Alkaline Phosphatase 94, C-Reactive Protein 7.5 H, Total Protein 7.3, Albumin 4.2, Globulin 3.1, Albumin/Globulin Ratio 1.4, Procalcitonin 0.154 06/15/24 22:30 06/15/24 22:30 Orders (Tests/Meds): ED MEDICATIONS Generic Name Dose Route Start Last Admin Trade Name Freq PRN Reason Stop Dose Admin Acetaminophen 650 mg 06/16/24 00:53 Acetaminophen 325mg Tab PO 07/16/24 00:52 Q4HP PRN Fever or Mild Pain (1-3) Piperacillin Sod/Tazobactam 100 mls @ 200 mls/hr 06/16/24 00:51 06/16/24 00:58 Sod 4.5 gm/ Sodium Chloride IV 06/16/24 01:20 200 mls/hr ONCE ONE Administration Sodium Chloride 1,000 mls @ 50 mls/hr 06/16/24 01:00 06/16/24 01:59 Sod Chlor 0.9% 1000ml Bag IV 07/16/24 00:59 50 mls/hr .Q20H YAMILET Administration Morphine Sulfate 2 mg 06/16/24 00:53 Morphine 2mg/Ml Syringe IV 07/16/24 00:52 Q2HP PRN Severe Pain (7-10) Nicotine 21 mg 06/16/24 00:53 Nicotine 21mg/24hr Patch TD 07/16/24 00:52 DAILYP PRN Nicotine Cravings Ondansetron HCl 4 mg 06/16/24 00:53 Ondansetron 4mg/2ml Vial IV 07/16/24 00:52 Q8HP PRN Nausea Pantoprazole Sodium 40 mg 06/16/24 09:00 Pantoprazole 40mg Tablet PO 07/16/24 08:59 DAILY YAMILET Sodium Chloride 10 ml 06/15/24 23:09 06/15/24 23:10 Sodium Chloride 0.9% 10ml Syr (Rad Only) IV 07/15/24 23:08 10 ml NEEDED PRN Administration Maintain IV Site Discontinued Medications Generic Name Dose Route Start Last Admin Trade Name Freq PRN Reason Stop Dose Admin Acetaminophen 1,000 mg 06/15/24 22:05 06/15/24 22:35 Acetaminophen 1,000mg/100ml Vial IV 06/15/24 22:06 1,000 mg ONCE ONE Administration Lactated Ringer's 1,000 mls @ 999 mls/hr 06/15/24 22:05 06/15/24 22:35 Lactated Ringer's 1000 Ml Bag IV 06/15/24 23:05 999 mls/hr .Q1H1M ONE Administration Lactated Ringer's 1,000 mls @ 999 mls/hr 06/15/24 23:43 06/15/24 23:44 Lactated Ringer's 1000 Ml Bag IV 06/16/24 00:43 999 mls/hr .Q1H1M ONE Administration Piperacillin Sod/Tazobactam 100 mls @ 200 mls/hr 06/16/24 00:39 Sod 4.5 gm/ Sodium Chloride IV 06/16/24 01:08 ONCE ONE Iopamidol 75 ml 06/15/24 23:09 06/15/24 23:10 Iopamidol-370 (76%);100ml Bottle IV 06/15/24 23:10 75 ml ONCE ONE Administration Ketorolac Tromethamine 15 mg 06/15/24 22:05 06/15/24 22:35 Ketorolac 30mg/Ml Vial IV 06/15/24 22:06 15 mg ONCE ONE Administration Morphine Sulfate 4 mg 06/15/24 22:05 06/15/24 22:36 Morphine 4mg/Ml Syringe IV 06/15/24 22:06 4 mg ONCE ONE Administration Ondansetron HCl 4 mg 06/15/24 22:05 06/15/24 22:36 Ondansetron 4mg/2ml Vial IV 06/15/24 22:06 4 mg ONCE ONE Administration ORDERS Category Date Time Status CT abdomen pelvis w con Stat Cat Scan 06/15/24 22:04 Completed Activated Partial Thrombo Time Stat Lab 06/15/24 22:30 Completed CBC w/Auto Diff [Complete Blood Count Auto Diff] Stat Lab 06/15/24 22:30 Completed CMP [Comprehensive Metabolic Panel] Stat Lab 06/15/24 22:30 Completed CRP [C-Reactive Protein] Stat Lab 06/15/24 22:30 Completed Complete Blood Count Auto Diff AMLAB Lab 06/16/24 06:00 Ordered Comprehensive Metabolic Panel AMLAB Lab 06/16/24 06:00 Ordered Lactic Acid Stat Lab 06/15/24 22:04 Ordered Magnesium AMLAB Lab 06/16/24 06:00 Ordered Procalcitonin Stat Lab 06/15/24 22:30 Completed Prothrombin Time INR Stat Lab 06/15/24 22:30 Completed UA [Urinalysis and Microscopic] Stat Lab 06/15/24 22:18 Completed Blood Culture Stat Micro 06/16/24 00:49 Received Urine Culture Stat Micro 06/15/24 22:04 Received Medical Decision Narrative: In summary, this patient is a 68-year-old male presenting to the Emergency Department for evaluation of lower abdominal pain and the feeling that he needs to urinate but cannot despite Villarreal catheter in place. Differential diagnoses considered include but are not limited to urinary outflow obstruction, Villarreal catheter obstruction, pelvic abscess, cystitis, pyelonephritis, sepsis, ureterolithiasis, colitis. Ruling out the most morbid conditions drove assessment. I reviewed patient's past medical records and noted previous evaluations for Villarreal catheter related issues and urinary retention as well as PCP evaluation 06/11/2020 for detailed in HPI. Patient is apparently currently on Bactrim.. On exam, the patient is very disheveled and unkempt. He lives alone with no one to help take care of him. He arrives by EMS who noted that he felt warm but they were notable to get a temperature and route. They noted his vitals are otherwise stable. Bladder scan was performed which demonstrated >450mL. Villarreal catheter was exchanged with gross hematuria out. Workup included CBC, CMP, PT, PTT, lactic acid, urinalysis, urine culture, CT abdomen pelvis with IV contrast. Labs demonstrated CELSO with a creatinine of 2 from a baseline of 0.9, likely in the setting of Villarreal obstruction. Villarreal catheter was placed, and fluid resuscitation is ongoing. Patient also has transaminitis, which appears new from prior lab evaluation. Urine culture was sent and is pending. CT scan is pending at this time. Patient consented to have a provider, Dr. Kendall. <Andrew Kendall MD - Last Filed: 06/16/24 02:21> Vital Signs: 06/15/24 21:58 06/15/24 22:17 06/15/24 23:26 Temperature 98.5 F Temperature Source Oral Pulse Rate 77 95 H Pulse Rate [Right Radial] 127 H Respiratory Rate 20 Blood Pressure 141/91 H 93/57 L Blood Pressure [Right Arm] 140/88 Blood Pressure Mean 69 Blood Pressure Mean [Right Arm] 105 Blood Pressure Source Blood Pressure Source [Right Arm] Automatic Cuff Blood Pressure Position Blood Pressure Position [Right Arm] Supine 02 Sat by Pulse Oximetry 95 97 94 L Oxygen Delivery Method Room Air Room Air 06/15/24 23:30 06/16/24 00:30 06/16/24 00:31 Temperature Temperature Source Pulse Rate 92 H Pulse Rate [Right Radial] Respiratory Rate Blood Pressure 89/48 L 97/60 L 94/60 L Blood Pressure [Right Arm] Blood Pressure Mean 61 Blood Pressure Mean [Right Arm] Blood Pressure Source Automatic Cuff Manual Cuff/ Auscultation Blood Pressure Source [Right Arm] Blood Pressure Position Sitting Blood Pressure Position [Right Arm] 02 Sat by Pulse Oximetry 94 L Oxygen Delivery Method Room Air 06/16/24 01:34 Temperature 98.2 F Temperature Source Pulse Rate 80 Pulse Rate [Right Radial] Respiratory Rate 12 Blood Pressure 93/58 L Blood Pressure [Right Arm] Blood Pressure Mean Blood Pressure Mean [Right Arm] Blood Pressure Source Blood Pressure Source [Right Arm] Blood Pressure Position Blood Pressure Position [Right Arm] 02 Sat by Pulse Oximetry Oxygen Delivery Method Room Air Lab Data Lab Results 06/15/24 22:18: Urine Color Yellow, Urine Appearance Clear, Urine pH 8.5, Ur Specific [place] 1.010, Urine Protein 3+, Urine Glucose (UA) Negative, Urine Ketones Negative, Urine Blood 2+, Urine Nitrate Positive, Urine Bilirubin 1+ A, Urine Urobilinogen 1.0, Ur Leukocyte Esterase 2+ A, Urine RBC 3-5, Urine WBC 3- 5, Ur Squamous Epith Cells Occasional, Urine Bacteria 2+, Urine Mucus 4+ 06/15/24 22:30: WBC 8.9, RBC 4.99, Hgb 15.3, Hct 46.5, MCV 93.1, MCH 30.6, MCHC 32.9, RDW 13.7, Plt Count 199, MPV 8.4, Neut % (Auto) 88.6 H, Lymph % (Auto) 5.3 L, [place] % (Auto) 5.0, Eos % (Auto) 0.9, Baso % (Auto) 0.3, Neut # (Auto) 7.9 H, Lymph # (Auto) 0.5 L, [place] # (Auto) 0.4, Eos # (Auto) 0.1, Baso # (Auto) 0.0, Total Counted 100, Neutrophils % (Manual) 94 H, Lymphocytes % (Manual) 5 L, Eosinophils % (Manual) 1, Platelet Estimate Normal, RBC Morphology Normal, PT 10.1, INR 0.89 L, APTT 23.7, Sodium 145, Potassium 4.3, Chloride 113 H, Carbon Dioxide 26, Anion Gap 10.3, BUN 39 H, Creatinine 2.00 H, Estimated Creat Clear 28, Estimated GFR 33 L, Est GFR ( Amer) 40 L, Glucose 136 H, Calcium 9.8, Total Bilirubin 0.6, AST 153 H, ALT 135 H, Alkaline Phosphatase 94, C-Reactive Protein 7.5 H, Total Protein 7.3, Albumin 4.2, Globulin 3.1, Albumin/Globulin Ratio 1.4, Procalcitonin 0.154 Orders (Tests/Meds): ED MEDICATIONS Generic Name Dose Route Start Last Admin Trade Name Freq PRN Reason Stop Dose Admin Acetaminophen 650 mg 06/16/24 00:53 Acetaminophen 325mg Tab PO 07/16/24 00:52 Q4HP PRN Fever or Mild Pain (1-3) Piperacillin Sod/Tazobactam 100 mls @ 200 mls/hr 06/16/24 00:51 06/16/24 00:58 Sod 4.5 gm/ Sodium Chloride IV 06/16/24 01:20 200 mls/hr ONCE ONE Administration Sodium Chloride 1,000 mls @ 50 mls/hr 06/16/24 01:00 06/16/24 01:59 Sod Chlor 0.9% 1000ml Bag IV 07/16/24 00:59 50 mls/hr .Q20H YAMILET Administration Morphine Sulfate 2 mg 06/16/24 00:53 Morphine 2mg/Ml Syringe IV 07/16/24 00:52 Q2HP PRN Severe Pain (7-10) Nicotine 21 mg 06/16/24 00:53 Nicotine 21mg/24hr Patch TD 07/16/24 00:52 DAILYP PRN Nicotine Cravings Ondansetron HCl 4 mg 06/16/24 00:53 Ondansetron 4mg/2ml Vial IV 07/16/24 00:52 Q8HP PRN Nausea Pantoprazole Sodium 40 mg 06/16/24 09:00 Pantoprazole 40mg Tablet PO 07/16/24 08:59 DAILY YAMILET Sodium Chloride 10 ml 06/15/24 23:09 06/15/24 23:10 Sodium Chloride 0.9% 10ml Syr (Rad Only) IV 07/15/24 23:08 10 ml NEEDED PRN Administration Maintain IV Site Discontinued Medications Generic Name Dose Route Start Last Admin Trade Name Freq PRN Reason Stop Dose Admin Acetaminophen 1,000 mg 06/15/24 22:05 06/15/24 22:35 Acetaminophen 1,000mg/100ml Vial IV 06/15/24 22:06 1,000 mg ONCE ONE Administration Lactated Ringer's 1,000 mls @ 999 mls/hr 06/15/24 22:05 06/15/24 22:35 Lactated Ringer's 1000 Ml Bag IV 06/15/24 23:05 999 mls/hr .Q1H1M ONE Administration Lactated Ringer's 1,000 mls @ 999 mls/hr 06/15/24 23:43 06/15/24 23:44 Lactated Ringer's 1000 Ml Bag IV 06/16/24 00:43 999 mls/hr .Q1H1M ONE Administration Piperacillin Sod/Tazobactam 100 mls @ 200 mls/hr 06/16/24 00:39 Sod 4.5 gm/ Sodium Chloride IV 06/16/24 01:08 ONCE ONE Iopamidol 75 ml 06/15/24 23:09 06/15/24 23:10 Iopamidol-370 (76%);100ml Bottle IV 06/15/24 23:10 75 ml ONCE ONE Administration Ketorolac Tromethamine 15 mg 06/15/24 22:05 06/15/24 22:35 Ketorolac 30mg/Ml Vial IV 06/15/24 22:06 15 mg ONCE ONE Administration Morphine Sulfate 4 mg 06/15/24 22:05 06/15/24 22:36 Morphine 4mg/Ml Syringe IV 06/15/24 22:06 4 mg ONCE ONE Administration Ondansetron HCl 4 mg 06/15/24 22:05 06/15/24 22:36 Ondansetron 4mg/2ml Vial IV 06/15/24 22:06 4 mg ONCE ONE Administration ORDERS Category Date Time Status CT abdomen pelvis w con Stat Cat Scan 06/15/24 22:04 Completed Activated Partial Thrombo Time Stat Lab 06/15/24 22:30 Completed CBC w/Auto Diff [Complete Blood Count Auto Diff] Stat Lab 06/15/24 22:30 Completed CMP [Comprehensive Metabolic Panel] Stat Lab 06/15/24 22:30 Completed CRP [C-Reactive Protein] Stat Lab 06/15/24 22:30 Completed Complete Blood Count Auto Diff AMLAB Lab 06/16/24 06:00 Ordered Comprehensive Metabolic Panel AMLAB Lab 06/16/24 06:00 Ordered Lactic Acid Stat Lab 06/15/24 22:04 Ordered Magnesium AMLAB Lab 06/16/24 06:00 Ordered Procalcitonin Stat Lab 06/15/24 22:30 Completed Prothrombin Time INR Stat Lab 06/15/24 22:30 Completed UA [Urinalysis and Microscopic] Stat Lab 06/15/24 22:18 Completed Blood Culture Stat Micro 06/16/24 00:49 Received Urine Culture Stat Micro 06/15/24 22:04 Received Medical Decision Narrative: In summary, this patient is a 68-year-old male presenting to the Emergency Department for evaluation of lower abdominal pain and the feeling that he needs to urinate but cannot despite Villarreal catheter in place. Differential diagnoses considered include but are not limited to urinary outflow obstruction, Villarreal catheter obstruction, pelvic abscess, cystitis, pyelonephritis, sepsis, ureterolithiasis, colitis. Ruling out the most morbid conditions drove assessment. I reviewed patient's past medical records and noted previous evaluations for Villarreal catheter related issues and urinary retention as well as PCP evaluation 06/11/2020 for detailed in HPI. Patient is apparently currently on Bactrim.. On exam, the patient is very disheveled and unkempt. He lives alone with no one to help take care of him. He arrives by EMS who noted that he felt warm but they were notable to get a temperature and route. They noted his vitals are otherwise stable. Bladder scan was performed which demonstrated >450mL. Villarreal catheter was exchanged with gross hematuria out. Workup included CBC, CMP, PT, PTT, lactic acid, urinalysis, urine culture, CT abdomen pelvis with IV contrast. Labs demonstrated CELSO with a creatinine of 2 from a baseline of 0.9, likely in the setting of Villarreal obstruction. Villarreal catheter was placed, and fluid resuscitation is ongoing. Patient also has transaminitis, which appears new from prior lab evaluation. Urine culture was sent and is pending. CT scan is pending at this time. Patient consented to have a provider, Dr. Kendall. Enoch KUHN: I assumed care of the patient at the time of handoff from the prior provider. On reassessment patient is hemodynamically stable and reports improvement in abdominal pain after Villarreal has been draining. Villarreal is draining dark red urine. CT imaging was independently interpreted by me and shows some inflammation of the bladder consistent with cystitis. 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 PCP note from earlier this week notes that he has known aortic atherosclerotic disease and peripheral arterial disease. On discussion with patient, he reports no new leg pain weakness or numbness. Reports he is still ambulatory. On exam patient has equal Doppler signals in the DP and PT bilaterally. Patient's feet are warm and well-perfused appearing. Patient is already on anticoagulation. Given this, I do not believe that the CT findings are acute, though I do not have prior CT imaging to compare to. Patient appears to have appropriate distal perfusion at this time. Given this, I believe patient is appropriate for admission to our facility. Blood cultures were obtained and patient was given Zosyn for treatment of presumed urinary tract infection associated with indwelling catheter. Patient was also given a liter of IV fluids. Interactive discussion was had with the hospitalist on-call for admission. Critical Care <Adriana Wolfe, DO - Last Filed: 06/15/24 23:00> Critical Care Time Critical Care Time: No
[2024-06-15 22:17] VITALS: BP 141/91; PULSE 77; O2SAT 97
[2024-06-15 22:23] LABS: Microscopic, Urine URINE MICROSCOPIC (MICROSCOPIC)
[2024-06-15 22:26] LABS: Appearance,Urine CLEAR (Clear); Blood, Urine 2+ (Negative); Color,Urine YELLOW (Yellow); Glucose,Urine (UA) Negative (Negative); Ketones,Urine Negative (Negative); Leukocyte Esterase,Urine 2+ (Negative); Nitrate,Urine POSITIVE (Negative); PH,Urine 8.5 (5.0-8.5); Protein,Urine 3+ (Negative)
--- NOTE | 2024-06-15 22:29 | PC.NURSE ---
Bladder scanned showed 457mL after removing gonzalez cath that patient presented with.
[2024-06-15] MEDS: LACTATED RINGERS 1000ML 1,000 ML 999 ML IV ×2 (22:35→23:44)
[2024-06-15] MEDS: ACETAMINOPHEN 1,000MG/100ML VIAL 1000 MG IV (22:35)
[2024-06-15] MEDS: KETOROLAC 30MG/ML VIAL 15 MG IV (22:35)
[2024-06-15] MEDS: MORPHINE 4MG/ML SYRINGE 4 MG IV (22:36)
[2024-06-15] MEDS: ONDANSETRON 4MG/2ML VIAL 4 MG IV (22:36)
[2024-06-15 22:37] LABS: Basophils % 0.3 % (0.1-2.0); Eosinophils # 0.1 K/mm3 (0.0-0.4); Eosinophils % 0.9 % (0.1-12.0); Hematocrit 46.5 % (42.0-52.0); Hemoglobin 15.3 g/dL (14.1-18.0); Lymphocytes # 0.5 K/mm3 (0.7-4.5); Lymphocytes % 5.3 % (10-50); Mean Corpuscular HGB Conc 32.9 g/dL (31.8-35.4); Mean Corpuscular Hemoglobin 30.6 pg (27.0-31.2); Mean Corpuscular Volume 93.1 fl (80-94); Mean Platelet Volume 8.4 fl (7.4-10.4); Monocytes # 0.4 K/mm3 (0.1-1.0); Neutrophils # 7.9 K/mm3 (1.8-7.8); Neutrophils % 88.6 % (37.0-80.0); Platelet Count 199 K/mm3 (142-424); Red Blood Count 4.99 M/mm3 (4.60-6.20); Red Cell Distribution Width 13.7 % (11.5-17.5); White Blood Count 8.9 K/mm3 (4.8-10.8)
[2024-06-15 22:38] LABS: Bacteria,Urine 2+ /lpf; Bilirubin,Urine 1+ (Negative); Mucus,Urine 4+ /lpf; Squamous Epithelial Cell,Urine Occasional #/hpf (0-5)
[2024-06-15 22:40] LABS: MANUAL DIFFERENTIAL MANUAL DIFFERENTIAL (MANUAL DIFF)
[2024-06-15 22:44] LABS: Albumin Level 4.2 g/dl (3.5-5.0); Chloride 113 mmol/L (98-107); Potassium 4.3 mmoL/L (3.5-5.1); Sodium 145 mmol/L (136-145)
[2024-06-15 22:47] LABS: Alanine Aminotransferase 135 U/L (12-78); Albumin/Globulin Ratio 1.4 (1.1-1.8); Alkaline Phosphatase 94 U/L (38-126); Anion Gap 10.3 mEq/L (5-15); Aspartate Amino Transferase 153 U/L (17-59); Bilirubin,Total 0.6 mg/dl (0.2-1.3); Blood Urea Nitrogen 39 mg/dl (9-20); Carbon Dioxide 26 mmol/L (22.0-30.0); Creatinine Clearance Estimated 28 mL/min (50-200); Estimated Glomerular Filt Rate 33 ml/min (>60); GFR (African American) 40 ML/MIN (>60); Globulin 3.1 g/dL (1.3-3.2); Total Protein,Serum 7.3 g/dl (6.3-8.2)
[2024-06-15 22:48] LABS: Calcium 9.8 mg/dl (8.4-10.2); Glucose 136 mg/dl (74-100)
[2024-06-15 22:50] LABS: Activated Partial Thrombo Time 23.7 seconds (22.8-30.6); INR 0.89 (0.9-1.1); Prothrombin Time 10.1 seconds (10.1-12.5)
[2024-06-15 23:08] LABS: Eosinophils % 1 % (0-3); Lymphocytes % 5 % (10-50); Neutrophils % 94 % (42-76); Platelet Estimate Normal; RBC Morphology Normal; Total Cells Counted 100
[2024-06-15] MEDS: IOPAMIDOL-370 (76%);100ML BOTTLE 75 ML IV (23:10)
[2024-06-15] MEDS: SODIUM CHLORIDE 0.9% 10ML SYR (RAD ONLY) 10 ML IV (23:10)
[2024-06-15 23:11] LABS: C-Reactive Protein 7.5 mg/L (0-4)
[2024-06-15 23:12] LABS: Procalcitonin 0.154 ng/mL (0.0-2.0)
[2024-06-15 23:26] VITALS: BP 93/57; PULSE 95; O2SAT 94
[2024-06-15 23:30] VITALS: BP 89/48; PULSE 92; O2SAT 94
[2024-06-16] VITALS (14 sets, daily range): BP systolic 81–102; BP diastolic 43–60; PULSE 50–80; RESP 12–20; TEMP 36.4–36.9; O2SAT 93–100; BMI 17.4
--- NOTE | 2024-06-16 00:55 | EXP.HP ---
History of Present Illness *Admission Date: 06/16/24 *History of present illness: This is a 68-year-old male with a history of urinary retention with indwelling Gonzalez catheter, peripheral vascular disease, mood disorder, prior CVA, hyperlipidemia, anticoagulation with Eliquis presenting with concern for lower abdominal pain. He notes that he feels like he needs to be but cannot. He states that he emptied a very small amount of urine out of his leg bag around 3 PM, but it has had no urine in it since then. He does note that he is on antibiotic treatment for urinary tract infection, which has been on for approximately 2 weeks. He is not sure what he is taking. On medical record review from his primary care provider, it appears that he was seen and was taken off of Levaquin and prescribed Bactrim 06/11/2024. He was also given urology referral, but it appears he is not yet seen them. He was given a dose of IM Rocephin at that time. His Gonzalez has been in place since he was seen at ED at the beginning of May. Most of the previous was taken form ED documentation. patient does not want to cooperate with interview. stated he wants to eat . Admitted for further management [facility] Disclaimer: The information contained in this section may have been updated after the patient was seen, as this information can be updated by other users. Medical History (Updated 06/16/24 @ 03:31 by Salvador Wylie APRN) Unspecified mood [affective] disorder Peripheral vascular disease Atherosclerosis of aorta Acute UTI Acute urinary retention Gonzalez catheter in place Surgical History (Updated 06/16/24 @ 01:52 by Jorge Vaz RN) Previous back surgery Social History (Updated 06/16/24 @ 01:52 by Jorge Vaz RN) Smoking Status: Current every day smoker alcohol intake: former current occupational status: unemployed Travel in the last 8 weeks: None Review of Systems Review of Systems Review of systems:: pertinent systems reviewed and negative unless documented below Meds Home Medications and Allergies Home Medications ?Medication ?Instructions ?Recorded ?Confirmed ?Type apixaban 5 mg tablet 5 mg PO BID 06/11/24 06/16/24 History aspirin 81 mg tablet,delayed 81 mg PO DAILY 06/11/24 06/16/24 History release (Adult Aspirin Regimen) atorvastatin 40 mg tablet (Lipitor) 40 mg PO HS 06/11/24 06/16/24 History calcium carbonate 500 mg-vitamin 1 tab PO BID 06/11/24 06/16/24 History D3 10 mcg (400 unit) tablet carvedilol 3.125 mg tablet 3.125 mg PO BID 06/11/24 06/16/24 History ergocalciferol (vitamin D2) 1,250 1,250 mcg PO WEEKLY 06/11/24 06/16/24 History mcg (50,000 unit) capsule fluticasone fur. 100 mcg-umeclid 1 inh inhalation DAILY 06/11/24 06/16/24 History 62.5 mcg-vilant 25 mcg inhalat.powder (Trelegy Ellipta) sertraline 50 mg tablet 50 mg PO DAILY 06/11/24 06/16/24 History sulfamethoxazole 800 1 tab PO BID #20 tabs 06/11/24 06/16/24 Rx mg-trimethoprim 160 mg tablet (Bactrim DS) New Prescriptions to Start Prescriptions: Allergies Allergy/AdvReac Type Severity Reaction Status Date / Time No Known Allergies Allergy Verified 06/11/24 15:28 Exam Data for Last 24 hours Vital signs and Labs for Last 24 Hours: Temp Pulse Resp BP Pulse Ox O2 Del Method 98.5 F 92 H 20 94/60 L 94 L Room Air 06/15/24 21:58 06/15/24 23:30 06/15/24 21:58 06/16/24 00:31 06/15/24 23:30 06/15/24 23:30 Laboratory Results - last 24 hr 06/15/24 22:18: Urine Color Yellow, Urine Appearance Clear, Urine pH 8.5, Ur Specific [place] 1.010, Urine Protein 3+, Urine Glucose (UA) Negative, Urine Ketones Negative, Urine Blood 2+, Urine Nitrate Positive, Urine Bilirubin 1+ A, Urine Urobilinogen 1.0, Ur Leukocyte Esterase 2+ A, Urine RBC 3-5, Urine WBC 3-5, Ur Squamous Epith Cells Occasional, Urine Bacteria 2+, Urine Mucus 4+ 06/15/24 22:30: WBC 8.9, RBC 4.99, Hgb 15.3, Hct 46.5, MCV 93.1, MCH 30.6, MCHC 32.9, RDW 13.7, Plt Count 199, MPV 8.4, Neut % (Auto) 88.6 H, Lymph % (Auto) 5.3 L, Scott % (Auto) 5.0, Eos % (Auto) 0.9, Baso % (Auto) 0.3, Neut # (Auto) 7.9 H, Lymph # (Auto) 0.5 L, Scott # (Auto) 0.4, Eos # (Auto) 0.1, Baso # (Auto) 0.0, Total Counted 100, Neutrophils % (Manual) 94 H, Lymphocytes % (Manual) 5 L, Eosinophils % (Manual) 1, Platelet Estimate Normal, RBC Morphology Normal, PT 10.1, INR 0.89 L, APTT 23.7, Sodium 145, Potassium 4.3, Chloride 113 H, Carbon Dioxide 26, Anion Gap 10.3, BUN 39 H, Creatinine 2.00 H, Estimated Creat Clear 28, Estimated GFR 33 L, Est GFR ( Amer) 40 L, Glucose 136 H, Calcium 9.8, Total Bilirubin 0.6, AST 153 H, ALT 135 H, Alkaline Phosphatase 94, C-Reactive Protein 7.5 H, Total Protein 7.3, Albumin 4.2, Globulin 3.1, Albumin/Globulin Ratio 1.4, Procalcitonin 0.154 I & O for Last 24 hours: Intake & Output 06/13/24 06/14/24 06/15/24 06/16/24 23:59 23:59 23:59 23:59 Weight 56.699 kg Constitutional Constitutional: no acute distress *Routine HEENT Exam Head: Present normocephalic Eye: Present EOMI and PERRL ENT: Present mucous membranes moist *Routine Neck Exam Neck: Present supple; Absent lymphadenopathy *Routine Respiratory Exam Respiratory: Present CTA bilaterally *Routine Cardiovascular Exam Cardiovascular: Present RRR *Routine Abdominal Exam Abdominal: Present soft and normoactive bowel sounds; Absent tenderness *Routine Rectal Exam Rectal:: deferred *Routine Genitalia Exam Genitalia:: deferred *Routine Extremities Exam Extremities: Absent cyanosis, clubbing or edema *Routine Skin Exam Skin: Present warm; Absent rash *Routine Neurological Exam Neurological: Present alert and oriented X3 H&P: Result Imaging and Cardiology EKG: Status: image reviewed by me, Preliminary report and final report CT scan - abdomen: Status: image reviewed by me, Preliminary report and final report Assessment and Plan *Assessment and plan (1) Abdominal pain, lower: Status: Acute Category: Medical Code(s): R10.30 - Lower abdominal pain, unspecified (2) Chronic UTI: Status: Acute Category: Medical Code(s): N39.0 - Urinary tract infection, site not specified (3) Transaminitis: Status: Acute Category: Medical Code(s): R74.01 - Elevation of levels of liver transaminase levels (4) CELSO (acute kidney injury): Status: Acute Category: Medical Code(s): N17.9 - Acute kidney failure, unspecified (5) Hematuria: Status: Acute Qualifiers: Hematuria type: gross Qualified Code(s): R31.0 - Gross hematuria Category: Medical Code(s): R31.9 - Hematuria, unspecified (6) Complication, blocked Gonzalez catheter: Status: Acute Qualifiers: Encounter type: initial encounter Qualified Code(s): T83.091A - Other mechanical complication of indwelling urethral catheter, initial encounter Category: Medical Code(s): T83.091A - Other mechanical complication of indwelling urethral catheter, initial encounter (7) Acute urinary retention: Status: Acute Category: Medical Code(s): R33.8 - Other retention of urine (8) Constipated: Status: Acute Qualifiers: Constipation type: unspecified constipation type Qualified Code(s): K59.00 - Constipation, unspecified Category: Medical Code(s): K59.00 - Constipation, unspecified (9) Peripheral vascular disease: Status: Acute Category: Medical Code(s): I73.9 - Peripheral vascular disease, unspecified (10) Unspecified mood [affective] disorder: Status: Acute Category: Medical Code(s): F39 - Unspecified mood [affective] disorder Plan 68-year-old male with a history of urinary retention with indwelling Gonzalez catheter, peripheral vascular disease, mood disorder, prior CVA, hyperlipidemia, anticoagulation with Eliquis presenting with concern for lower abdominal pain. On arrival bladder scan was performed which demonstrated >450mL. Gonzalez catheter was exchanged with gross hematuria out. Labs demonstrated CELSO with a creatinine of 2 from a baseline of 0.9, likely in the setting of Gonzalez obstruction. Gonzalez catheter was placed, and fluid resuscitation started. Patient also has transaminitis, which appears new from prior lab evaluation. Urine culture was sent and is pending. CT of the abdomen showed normal liver appearance. and stenosis of right iliac. bedside doppler US performed by ED to assess circulation. patient with good pulses and perfusion. Findings discussed with ED after admission was requested. agreed for inpatient management. Plan as follow: -Abdominal pain Acute on chronic urinary retention secondary to blocked gonzalez, likely clotted Chronic UTI, signs of cystitis also seen on CT CELSO post renal due to urinary obstruction Hematuria, unclear origin, suspected traumatic or secondary to prostatitis. Admit patient for inpatient management gonzalez replaced on ED. hold eliquis started on zoxyn q8h. monitor renal function obtain PSA repeat lab s daily. monitor for sepsis CT of abd reviewed UA pending cont gently IV hydration. encouraged to increase PO intake transaminitis: unclear etilogy. CT of abdomen showed normal liver appareance. repeat in the morning hold statin - PVD: right iliac stenosis, likely chronic. cont monitoring while off eliquis cont aspirin -mood disorder on sertraline. resumed SCD for DVT ppx on Protonix for GI bleed protection full code Rounded on patient after nurse practitioner. Personally examined and interviewed patient. Agree with exam findings and care plan as documented. Patient's blood pressure soft this morning, holding his hypertensive medications. Will also hold his blood thinners in the setting of hemoglobin of 12 and lor hematuria. Monitor for improvement. Verified he has follow-up with urology next week. Therapy evaluating, suspect patient will need placement. Seeing some improvement in kidney function this morning with creatinine 1.3, BUN still elevated at 36. Repeat labs ordered for the morning tomorrow including CBC, CMP, magnesium.
[2024-06-16] MEDS: PIPERACILLIN/TAZO 4.5 GM in 0.9 % SODIUM CHLORIDE 100 ML IV (00:58)
--- NOTE | 2024-06-16 01:04 | PC.NURSE ---
Patient admitted to room 210 to hospitalist for CELSO and urinary retention; observation status.
--- NOTE | 2024-06-16 01:30 | PC.NURSE ---
Report called to Janene
--- NOTE | 2024-06-16 01:36 | PC.NURSE ---
pt arrived to floor at this time
[2024-06-16] MEDS: 0.9 % SODIUM CHLORIDE 1000ML 1,000 ML 50 ML IV (01:59)
[2024-06-16 02:48] LABS: Lactic Acid 1.4 mmol/L (0.7-2.1)
[2024-06-16] MEDS: 0.9 % SODIUM CHLORIDE 500 ML 999 ML IV ×2 (04:15→05:00)
--- NOTE | 2024-06-16 05:18 | PC.NURSE ---
bp 84/48. gab valdez aprn made aware. 500 ns bolus ordered. pt arousable but somnolent. no c/o verbalized. pt continues to have bloody urine.
[2024-06-16] MEDS: 0.9 % SODIUM CHLORIDE 1000ML 1,000 ML 125 ML IV (06:33)
[2024-06-16 06:59] LABS: Basophils % 0.4 % (0.1-2.0); Eosinophils # 0.1 K/mm3 (0.0-0.4); Eosinophils % 1.7 % (0.1-12.0); Hematocrit 32.2 % (42.0-52.0); Lymphocytes # 0.7 K/mm3 (0.7-4.5); Lymphocytes % 13.5 % (10-50); Mean Corpuscular HGB Conc 35.5 g/dL (31.8-35.4); Mean Corpuscular Hemoglobin 33.8 pg (27.0-31.2); Mean Corpuscular Volume 95.2 fl (80-94); Mean Platelet Volume 9.9 fl (7.4-10.4); Monocytes # 0.5 K/mm3 (0.1-1.0); Monocytes % 9.9 % (1.7-9.3); Neutrophils # 3.8 K/mm3 (1.8-7.8); Neutrophils % 74.5 % (37.0-80.0); Platelet Count 98 K/mm3 (142-424); Red Blood Count 3.38 M/mm3 (4.60-6.20); Red Cell Distribution Width 13.8 % (11.5-17.5); White Blood Count 5.1 K/mm3 (4.8-10.8)
[2024-06-16 07:09] LABS: Alanine Aminotransferase 81 U/L (12-78); Albumin Level 2.7 g/dl (3.5-5.0); Alkaline Phosphatase 82 U/L (38-126); Anion Gap 9.2 mEq/L (5-15); Aspartate Amino Transferase 122 U/L (17-59); Bilirubin,Total 0.7 mg/dl (0.2-1.3); Blood Urea Nitrogen 36 mg/dl (9-20); Calcium 8.4 mg/dl (8.4-10.2); Carbon Dioxide 21 mmol/L (22.0-30.0); Chloride 116 mmol/L (98-107); Creatinine Clearance Estimated 40 mL/min (50-200); Estimated Glomerular Filt Rate 55 ml/min (>60); GFR (African American) 66 ML/MIN (>60); Globulin 2.6 g/dL (1.3-3.2); Glucose 107 mg/dl (74-100); Potassium 4.2 mmoL/L (3.5-5.1); Sodium 142 mmol/L (136-145); Total Protein,Serum 5.3 g/dl (6.3-8.2)
[2024-06-16 07:41] LABS: Hemoglobin 12.1 g/dL (14.1-18.0)
--- NOTE | 2024-06-16 08:20 | PC.NURSE ---
Pt. is unable to remember the medications he takes daily.
[2024-06-16] MEDS: SERTRALINE 50MG TABLET 50 MG PO (08:26)
[2024-06-16] MEDS: DOCUSATE SODIUM 100 MG CAPSULE PO (08:26)
[2024-06-16] MEDS: ASPIRIN EC 81MG TABLET 81 MG PO (08:26)
--- NOTE | 2024-06-16 08:32 | PC.NURSE ---
. aware of patient's bp of 87/49.
--- NOTE | 2024-06-16 08:39 | HMH.PHAINT1 ---
Pharmacy Intervention Comments: HOME MEDICATION LIST VERIFIED USING LIST FROM PRIMARY CARE OFFICE DUE TO PT POOR HISTORY
[2024-06-16 08:51] LABS: Albumin Level 2.7 g/dl (3.5-5.0)
[2024-06-16 08:54] LABS: Alkaline Phosphatase 64 U/L (38-126); Aspartate Amino Transferase 109 U/L (17-59); Bilirubin,Indirect 0.5 mg/dL (0.0-0.9); Bilirubin,Total 0.5 mg/dl (0.2-1.3); Bilirubin,Unconjugated 0.5 mg/dL (0.0-1.1); Total Protein,Serum 5.1 g/dl (6.3-8.2)
[2024-06-16 09:11] LABS: Alanine Aminotransferase 83 U/L (12-78)
--- NOTE | 2024-06-16 09:37 | SW/DCPLANNER ---
Addendum entered by [facility] 06/18/24 15:32: Patient's friend Pita ([phone]) stated she is on her way to [facility] to transport this patient to [facility]. Addendum entered by [facility] 06/18/24 08:24: I have updated patient's daughter (Aniya [phone]) that patient will be ready for discharge today. Aniya confirmed that she will be able to transport patient to [facility] today. I have also updated Deloris w/ Elizabeth Mehrdad. Addendum entered by [facility] 06/17/24 15:56: Patient will not discharge to [facility] SNF level of care till tomorrow 06/18/24. Addendum entered by [facility] 06/17/24 13:39: Patient has been approved SNF level of care per Deloris. I have updated MD that patient will need to be at [facility] by 6PM. Addendum entered by [facility] 06/17/24 11:28: Auth is still pending at this time. Addendum entered by [facility] 06/16/24 13:53: Deloris quan/ Constantin Cronin stated that she will start an auth for this patient today. Original Note: I spoke w/ patient this AM regarding plans once medically stable for discharge. PT/OT evaluated patient and recommended SNF level of care. Patient is agreeable to placement at this time and prefers [facility], [facility] or [facility]. I will fax information to the following facilities. Discharge date is unknown at this time. I will continue to follow up w/ patient, facilities and MD.
--- NOTE | 2024-06-16 09:40 | HMH.OTEV ---
OT Inpatient Evaluation Rehab OT IP Evaluation Start: 06/16/24 07:04 Freq: ONCE Status: Active Protocol: Document 06/16/24 09:35 [email or web address] (Rec: 06/16/24 09:39 [facility] [id number]) Rehab OT IP Assessment Subjective History Pt oriented x 3 on arrival. Pt agreeable to engage in therapy evaluation. Pt admitted on 06/16/24 due to urinary retention and CELSO. History and physical report: This is a 68-year-old male with a history of urinary retention with indwelling Villarreal catheter, peripheral vascular disease, mood disorder, prior CVA, hyperlipidemia, anticoagulation with Eliquis presenting with concern for lower abdominal pain. He notes that he feels like he needs to be but cannot. He states that he emptied a very small amount of urine out of his leg bag around 3 PM, but it has had no urine in it since then. He does note that he is on antibiotic treatment for urinary tract infection, which has been on for approximately 2 weeks. He is not sure what he is taking. On medical record review from his primary care provider, it appears that he was seen and was taken off of Levaquin and prescribed Bactrim 06/11/2024. He was also given urology referral, but it appears he is not yet seen them. He was given a dose of IM Rocephin at that time. His Villarreal has been in place since he was seen at ED at the beginning of May. Most of the previous was taken form ED documentation. patient does not want to cooperate with interview. stated he wants to eat . Admitted for further management Subjective I can try to do something. Pt reports prior to being in the hospital, pt lived at home alone. Pt claims normally he is independent with ADLs such as dressing, bathing, and feeding. Pt explains he does minimal IADLs such as cleaning , cooking, etc. Pt does not use any type of AE during funcitonal transfers. Objective Patient Orientation Person,Place,Birthday Right Upper Extremity Gross ROM WFL Left Upper Extremity Gross ROM Mod Limitation 50% Shoulder ROM Limitations Muscle Weakness Elbow ROM Limitations Muscle Weakness Wrist Limitations of Range of Motion Muscle Weakness,Muscle Tone Bed Mobility bed mobility-scooting,bed mobility - supine/sit,bed mobility - rolling Assist Level Contact Guard/Hand Hold Assist Level Minimal x 1 (25% assist) Rehab OT IP prob,goals,plan Problems Date of Evaluation: 06/16/24 OT IP Problems Bed Mobility,Transfers,Balance ,Self care,Safety Rehab Potential Rehab Potential Good Equipment Needs Assistive Devices Rolling / Wheeled Walker Plan OT intervention Plan Bed Mobility,Transfers,Balance ,Self care,Safety,Therapeutic Exercise OT Plan Frequency Daily Duration LOS Discharge Goals Bed Mobility Ability Standby Assistance Sit to Stand Chair Transfer Ability Contact Guard/Hand Hold Chair Transfer Ability Contact Guard/Hand Hold Chair Transfer Technique Sit to/from Ambulatory Chair Transfer Assistive Devices Rolling Walker Feeding Ability Assist with Tray Set Up Lower Body Dressing Ability Moderate Assistance Upper Body Dressing Ability Contact Guard Bathing Ability Moderate Assistance Overall Commode/Toilet Transfer Ability Contact Guard Commode/Toilet Transfer Technique Sit to/from Ambulatory Commode/Toilet Transfer Assistive Grab Bars Devices Oral Care Assist Standby Assistance Discharge Plan OT Discharge Plan Pt will continue to be seen for OT services while at [facility]. Pt would benefit most from short term rehab at SNF following discharge from [facility]. Continued skilled therapy is important in order for patient to improve strength, safety, endurance, ADL independence, and functional transfers to reach PLOF. Eval Complexity Eval Charge Codes 47760 - Moderate Complexity PHYSICIAN CERTIFICATION: I certify the specified therapy services for Michael Altamirano are required, authorized, and reviewed every 30 days.
--- NOTE | 2024-06-16 09:45 | HMH.PTEV ---
Physical Therapy Evaluation Rehab PT IP Evaluation Start: 06/16/24 07:04 Freq: ONCE Status: Active Protocol: Document 06/16/24 09:31 CHECO (Rec: 06/16/24 09:45 [facility]CO [id number]) Subjective/History History History Patient Michael Altamirano is a 68 -year-old male with a medical history of urinary retention with indwelling Villarreal catheter , peripheral vascular disease, mood disorder, prior CVA, and hyperlipidemia. Patient states he lives at home and is able to take care of himself somewhat, and has no one to help him. Patient does not use any form of AD to help with ambulation and says he never has. Subjective Subjective Patient seemed confused and disoriented, he was able to answer most questions in a reasonable time frame. He did not mention being in any pain at this time, but was concerned about his catheter output color. New diagnosis of cancer in past 12 No months? Rehab PT IP Eval Objective Appearance Patient Behavior Cooperative,Confused,Patient Baseline Patient Orientation Person,Place,Name,Age,Birthday Speech Pattern Clear,Delayed,Patient Baseline Ambulation Patient Able to Ambulate Yes Ambulation Observation IP General Gait Pattern Observation Shuffling Step Ambulation Distance (feet) 15 Ambulation Assistive Device None Ambulation Ability Minimal x 1 (25% assist) Balance Ability to Arise Able, uses arms to help Sitting Balance Leans or slides in chair Standing Balance Narrow stance w/o support Dynamic Sitting Balance Ability Good Dynamic Standing Balance Ability Fair Transfers Bed Transfer Ability Minimal x 1 (25% assist) Sit to Stand Bed Transfer Ability Minimal x 1 (25% assist) Rehab PT IP prob,goals,plan Problems Date of Evaluation: 06/16/24 PT IP Problems Bed Mobility,Transfers,Balance Rehab Potential Rehab Potential Good Plan PT Intervention Plan Bed Mobility,Transfers,Balance PT Plan Frequency Daily Duration LOS Discharge Goals Bed Transfer Ability Supervision/Stand by Sit to Stand Chair Transfer Ability Supervision/Stand by Ambulation Assistive Device None Ambulation Distance (feet) 25 Discharge Plan PT Discharge Plan Patient is a good candidate for skilled PT at this time to address the current concerns of safety while ambulating. He will significantly benefit through addressing his LE weakness and unsteadiness to improve his functional capabilities. It is recommended that the patient get placement in a SNF if available to him to further address these concerns. Eval Complexity Eval Charge Codes 98021 - High Complexity PHYSICIAN CERTIFICATION: I certify the specified therapy services for Michael Kenney Altamirano are required, authorized, and reviewed every 30 days.
[2024-06-16] MEDS: FLUTICASONE/UMECLIDIN/VILANTER 100/62.5/25MCG INHALER 1 PUFF IH (09:53)
[2024-06-16] MEDS: PIPERACILLIN/TAZO 3.375 GM in 0.9 % SODIUM CHLORIDE 50 ML IV ×3 (09:59→20:36)
--- NOTE | 2024-06-16 14:10 | PC.NURSE ---
Pt. is aox 3 sleeping most of the day when not eating. NS @ 75 TIMES 2 bags then d/c, blood in f/c bag and Md aware, PT recommends pt to go to a SNF, lives at home alone.
--- NOTE | 2024-06-16 14:23 | PC.NURSE ---
Pt. is aox 3 sleeping most of the day when not eating. NS @ 125 one bag then d/c, blood in f/c bag and Md aware, PT recommends pt to go to a SNF, lives at home alone.
--- NOTE | 2024-06-16 15:20 | US_ITS ---
FINAL REPORT CLINICAL HISTORY: eval liver architecture COMPARISON: None FINDINGS: Sonographic images of the right upper quadrant were obtained. The pancreas is partially obscured.The liver has an unremarkable appearance.The gallbladder appears normal without evidence of gallstones., However overall evaluation of the gallbladder is limited as the patient could not roll into a decubitus position. There is no evidence of biliary ductal dilatation.The common duct measures 4.5mm. Limited images of the right kidney are unremarkable. IMPRESSION: Limited exam, no gross abnormality identified. Reviewed, Interpreted and Dictated by Nasir Rodriguez MD Transcribed by Mercedez Pérez Authenticated and [facility]
[2024-06-16] MEDS: 0.9 % SODIUM CHLORIDE 500 ML IV (19:51)
[2024-06-16] MEDS: ACETAMINOPHEN 325MG TAB 650 MG PO (20:01)
[2024-06-16] MEDS: PANTOPRAZOLE 40MG TABLET 40 MG PO (20:02)
[2024-06-16] MEDS: MORPHINE 2MG/ML SYRINGE 2 MG IV (20:30)
[2024-06-16] MEDS: MELATONIN 5MG TABLET 10 MG PO (23:51)
[2024-06-17] MEDS: MORPHINE 2MG/ML SYRINGE 2 MG IV ×6 (00:04→20:20)
[2024-06-17] MEDS: PIPERACILLIN/TAZO 3.375 GM in 0.9 % SODIUM CHLORIDE 50 ML IV ×4 (03:20→20:04)
[2024-06-17 04:00] VITALS: BP 99/50; PULSE 49; RESP 20; TEMP 36.4; O2SAT 98; BMI 18.2
--- NOTE | 2024-06-17 04:29 | PC.NURSE ---
while conversing with pt, pt reported he was diagnosed with lung cancer the beginning of this year and was receiving radiation treatments twice a week in december. he reported he stopped treatment and never went back to do follow-up. notified gab valdez aprn.
[2024-06-17] MEDS: FLUTICASONE/UMECLIDIN/VILANTER 100/62.5/25MCG INHALER 1 PUFF IH (06:09)
[2024-06-17 06:34] LABS: Basophils % 0.7 % (0.1-2.0); Eosinophils # 0.2 K/mm3 (0.0-0.4); Eosinophils % 6.3 % (0.1-12.0); Hematocrit 34.5 % (42.0-52.0); Hemoglobin 11.2 g/dL (14.1-18.0); Lymphocytes # 0.8 K/mm3 (0.7-4.5); Lymphocytes % 22.4 % (10-50); Mean Corpuscular HGB Conc 32.5 g/dL (31.8-35.4); Mean Corpuscular Hemoglobin 31.8 pg (27.0-31.2); Mean Corpuscular Volume 97.8 fl (80-94); Monocytes # 0.3 K/mm3 (0.1-1.0); Monocytes % 8.4 % (1.7-9.3); Neutrophils # 2.1 K/mm3 (1.8-7.8); Neutrophils % 62.3 % (37.0-80.0); Platelet Count 116 K/mm3 (142-424); Red Blood Count 3.52 M/mm3 (4.60-6.20); Red Cell Distribution Width 13.7 % (11.5-17.5); White Blood Count 3.4 K/mm3 (4.8-10.8)
[2024-06-17 06:52] LABS: Alanine Aminotransferase 62 U/L (12-78); Albumin Level 2.4 g/dl (3.5-5.0); Alkaline Phosphatase 51 U/L (38-126); Anion Gap 4.2 mEq/L (5-15); Aspartate Amino Transferase 62 U/L (17-59); Bilirubin,Total 0.2 mg/dl (0.2-1.3); Blood Urea Nitrogen 30 mg/dl (9-20); Calcium 8.1 mg/dl (8.4-10.2); Carbon Dioxide 27 mmol/L (22.0-30.0); Chloride 113 mmol/L (98-107); Creatinine Clearance Estimated 55 mL/min (50-200); Estimated Glomerular Filt Rate 96 ml/min (>60); GFR (African American) 116 ML/MIN (>60); Globulin 2.3 g/dL (1.3-3.2); Glucose 98 mg/dl (74-100); Magnesium 1.8 mg/dl (1.6-2.3); Potassium 4.2 mmoL/L (3.5-5.1); Sodium 140 mmol/L (136-145); Total Protein,Serum 4.7 g/dl (6.3-8.2)
[2024-06-17 08:00] VITALS: BP 90/50; PULSE 71; RESP 17; TEMP 36.8; O2SAT 93
[2024-06-17] MEDS: DOCUSATE SODIUM 100 MG CAPSULE PO ×2 (08:28→20:04)
[2024-06-17] MEDS: SERTRALINE 50MG TABLET 50 MG PO (08:28)
--- NOTE | 2024-06-17 10:26 | PC.NURSE ---
GILLIAM CATHETER IRRIGATED WITH 400 ML STERILE WATER PER MD RECOMMENDATIONS FOR HEMATURIA. GILLIAM BAG REPLACED. STERILE TECHNIQUE USED FOR PROCEDURE. PT TOLERATED WELL
[2024-06-17 16:00] VITALS: BP 90/46; PULSE 64; RESP 16; TEMP 36.6; O2SAT 96
--- NOTE | 2024-06-17 16:29 | PC.NURSE ---
AOX4, TOLERATING ROOM AIR WELL AT TIME OF WRITING. HAS AMBULATED WITH WALKER AND STANDBY ASSIST TO RESTROOM. GILLIAM CATH IN PLACE DRAINING BLOOD TINGED URINE. NO BLOOD CLOTS NOTED IN GILLIAM TUBING SINCE IRRIGATION PERFORMED THIS MORNING. PT HAS BEEN ACCEPTED TO [facility] PROBABLE D/C TOMORROW. MEDICATED FOR PAIN WITH PRN MORPHINE PER MAR WITH GOOD EFFECTIVENESS.
--- NOTE | 2024-06-17 18:25 | EXP.ACUTE.PN ---
Subjective *Date: 06/17/24 *Time: 18:32 Interval history: Patient fatigued. Awakes on exam however. Tolerating p.o. intake. Working with therapy. Still having some bloody urine but improved. No chest pain or shortness of breath. No nausea or vomiting. Medical Exam Vital signs and Labs for Last 24 Hours: Vital Signs Temp Pulse Resp BP Pulse Ox O2 Del Method O2 Flow Rate 06/17/24 16:31 Room Air 06/17/24 16:00 98 F 64 16 90/46 L 96 Room Air 06/17/24 15:00 Room Air 06/17/24 13:00 Room Air 06/17/24 11:00 Room Air 06/17/24 09:00 Room Air 06/17/24 08:00 93 L Room Air 06/17/24 08:00 98.2 F 71 17 90/50 L 93 L 06/17/24 06:43 Nasal Cannula 2 06/17/24 05:00 Nasal Cannula 2 06/17/24 04:00 97.6 F 49 L 20 99/50 L 98 Nasal Cannula 2 06/17/24 03:00 Nasal Cannula 2 06/17/24 01:00 Nasal Cannula 2 06/16/24 23:57 97.6 F 56 L 20 99/49 L 100 Nasal Cannula 2 06/16/24 23:00 Nasal Cannula 2 06/16/24 21:15 58 L 92/50 L 06/16/24 21:00 Nasal Cannula 2 06/16/24 20:31 91/47 L Nasal Cannula 2 06/16/24 20:08 Nasal Cannula 06/16/24 19:45 98.4 F 65 18 85/43 L 99 Nasal Cannula 2 06/16/24 19:02 Nasal Cannula 2 FiO2 06/17/24 16:31 06/17/24 16:00 06/17/24 15:00 06/17/24 13:00 06/17/24 11:00 06/17/24 09:00 06/17/24 08:00 06/17/24 08:00 06/17/24 06:43 06/17/24 05:00 06/17/24 04:00 06/17/24 03:00 06/17/24 01:00 06/16/24 23:57 06/16/24 23:00 06/16/24 21:15 06/16/24 21:00 06/16/24 20:31 06/16/24 20:08 06/16/24 19:45 06/16/24 19:02 28 Intake and Output 06/17/24 06/17/24 06/17/24 07:59 15:59 23:59 Intake Total 2560 / 2920 360 / 2920 Output Total 450 / 450 Balance 2110 / 2470 360 / 2470 Intake: Intake, Oral Amount 980 / 1340 360 / 1340 Intake, Total IV Amount 1580 / 1580 0.9 % Sodium Chloride 500 ml @ 1430 / 1430 500 mls/hr IV .Q1H ONE Rx#: [id number] Piperacillin/Tazo 3.375 gm In 0 150 / 150 .9 % Sodium Chloride 50 ml @ 100 mls/hr IV Q6H [facility] Rx#: [id number] Output: Output, Urine Amount 450 / 450 Other: Number of Bowel Movements 1 1 Weight 54.567 kg Patient Weight 06/17/24 23:59 Weight 54.567 kg Laboratory Results - last 24 hr 06/17/24 05:47: WBC 3.4 L D, RBC 3.52 L, Hgb 11.2 L, Hct 34.5 L, MCV 97.8 H, MCH 31.8 H, MCHC 32.5, RDW 13.7, Plt Count 116 L, MPV 9.0, Neut % (Auto) 62.3, Lymph % (Auto) 22.4, [place] % (Auto) 8.4, Eos % (Auto) 6.3, Baso % (Auto) 0.7, Neut # (Auto) 2.1, Lymph # (Auto) 0.8, [place] # (Auto) 0.3, Eos # (Auto) 0.2, Baso # (Auto) 0.0, Sodium 140, Potassium 4.2, Chloride 113 H, Carbon Dioxide 27, Anion Gap 4.2 L, BUN 30 H, Creatinine 0.80 D, Estimated Creat Clear 55, Estimated GFR 96, Est GFR ( Amer) 116 D, Glucose 98, Calcium 8.1 L, Magnesium 1.8, Total Bilirubin 0.2, AST 62 H D, ALT 62 D, Alkaline Phosphatase 51, Total Protein 4.7 L, Albumin 2.4 L D, Globulin 2.3, Albumin/Globulin Ratio 1.0 L I & O for Labs for Last 24 Hours: Intake & Output 06/14/24 06/15/24 06/16/24 06/17/24 23:59 23:59 23:59 23:59 Intake Total 2505 / 2745 2920 / 2920 Output Total 1050 / 1050 450 / 450 Balance 1455 / 1695 2470 / 2470 Weight 56.699 kg 52.299 kg 54.567 kg Microbiology Reports for the Last 24 Hours: Microbiology 06/16/24 00:49 Blood Blood Culture - Preliminary NO GROWTH AFTER 24 HOURS 06/16/24 00:49 Blood Blood Culture - Preliminary NO GROWTH AFTER 24 HOURS Constitutional: Present no acute distress, thin, chronically ill appearing and cooperative Head: Present atraumatic and normocephalic ENT: Present normal exam Respiratory: Present normal respiratory effort; Absent rhonchi, wheezes or crackles Cardiac: Present Reg Rate and Rhythm GI: Present soft and normal bowel sounds; Absent distention or tenderness Comment:: Gonzalez in place Extremities: Present normal inspection and full ROM Skin: Present intact; Absent erythema Neuro: Present Grossly Intact, alert, awake, oriented x 3 and moves all extremities Assessment and Plan *Assessment and plan (1) CELSO (acute kidney injury): Status: Acute Category: Medical Code(s): N17.9 - Acute kidney failure, unspecified (2) Chronic UTI: Status: Acute Category: Medical Code(s): N39.0 - Urinary tract infection, site not specified (3) Hematuria: Status: Acute Qualifiers: Hematuria type: gross Qualified Code(s): R31.0 - Gross hematuria Category: Medical Code(s): R31.9 - Hematuria, unspecified (4) Abdominal pain, lower: Status: Acute Category: Medical Code(s): R10.30 - Lower abdominal pain, unspecified (5) Transaminitis: Status: Acute Category: Medical Code(s): R74.01 - Elevation of levels of liver transaminase levels (6) Complication, blocked Gonzalez catheter: Status: Acute Qualifiers: Encounter type: initial encounter Qualified Code(s): T83.091A - Other mechanical complication of indwelling urethral catheter, initial encounter Category: Medical Code(s): T83.091A - Other mechanical complication of indwelling urethral catheter, initial encounter (7) Acute urinary retention: Status: Acute Category: Medical Code(s): R33.8 - Other retention of urine (8) Constipated: Status: Acute Qualifiers: Constipation type: unspecified constipation type Qualified Code(s): K59.00 - Constipation, unspecified Category: Medical Code(s): K59.00 - Constipation, unspecified (9) Peripheral vascular disease: Status: Acute Category: Medical Code(s): I73.9 - Peripheral vascular disease, unspecified (10) Unspecified mood [affective] disorder: Status: Acute Category: Medical Code(s): F39 - Unspecified mood [affective] disorder Plan 68-year-old male with a history of urinary retention with indwelling Gonzalez catheter, peripheral vascular disease, mood disorder, prior CVA, hyperlipidemia, anticoagulation with Eliquis presenting with concern for lower abdominal pain. On arrival bladder scan was performed which demonstrated >450mL. Gonzalez catheter was exchanged with gross hematuria out. Labs demonstrated CELSO with a creatinine of 2 from a baseline of 0.9, likely in the setting of Gonzalez obstruction. Gonzalez catheter was placed, and fluid resuscitation started. Patient also has transaminitis, which appears new from prior lab evaluation. Urine culture was sent and is pending. CT of the abdomen showed normal liver appearance. and stenosis of right iliac. bedside doppler US performed by ED to assess circulation. patient with good pulses and perfusion. Findings discussed with ED after admission was requested. agreed for inpatient management. Urine showing improvement. Therapy evaluated, recommends placement. Continues to require inpatient management. 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 Continue Gonzalez. Urine clearing. Will flush today due to sediment and small clots. Continue Zosyn every 8 hours scheduled. Continue to hold Eliquis White cell count normal at 3.4, hemoglobin 11.2. Slowly trickling down. Platelets 116. Repeat CBC, CMP, magnesium ordered for the morning. Kidney function improving with BUN 30, creatinine 0.8 Urine culture pending transaminitis: unclear etilogy. CT of abdomen showed normal liver appareance, Normalized today. Suspect secondary to statin PVD: right iliac stenosis, likely chronic. cont monitoring while off eliquis. Holding Eliquis as well. -mood disorder Continue home Zoloft SCD for DVT ppx on Protonix for GI bleed protection full code
[2024-06-17 20:00] VITALS: BP 99/61; PULSE 76; RESP 18; TEMP 37; O2SAT 95
[2024-06-17] MEDS: MELATONIN 5MG TABLET 10 MG PO (20:04)
[2024-06-17] MEDS: PANTOPRAZOLE 40MG TABLET 40 MG PO (20:04)
[2024-06-17] MEDS: ONDANSETRON 4MG/2ML VIAL 4 MG IV (20:20)
[2024-06-18] MEDS: PIPERACILLIN/TAZO 3.375 GM in 0.9 % SODIUM CHLORIDE 50 ML IV ×2 (02:42→07:51)
--- NOTE | 2024-06-18 03:30 | PC.NURSE ---
Pt states he feels like he needs to pee. Urine brownish red in bag and tube. Catheter flushed with 240ml saline. No large clots seen. Pt states relief after.
[2024-06-18 04:00] VITALS: BP 119/65; PULSE 58; RESP 18; TEMP 36.5; O2SAT 95; BMI 19.1
[2024-06-18] MEDS: MORPHINE 2MG/ML SYRINGE 2 MG IV (04:05)
--- NOTE | 2024-06-18 05:41 | PC.NURSE ---
Pt A/O x4 but does seem slightly confused at times. Pt has complained of lower cramping abdominal pain 2x t/o shift and received PRN medication per JAN. Hyperactive BM sounds. Pt had 2 BMs during shift. Pt has ambulated to bathroom using walker with standby assist, tolerating well. Villarreal in place draining reddish brown urine. No complaints of feeling of retention since flushing tube. Call light within reach.
[2024-06-18 06:34] VITALS: O2SAT 93
[2024-06-18] MEDS: FLUTICASONE/UMECLIDIN/VILANTER 100/62.5/25MCG INHALER 1 PUFF IH (06:34)
[2024-06-18 06:54] LABS: Alanine Aminotransferase 45 U/L (12-78); Albumin Level 2.5 g/dl (3.5-5.0); Alkaline Phosphatase 54 U/L (38-126); Anion Gap 4.7 mEq/L (5-15); Aspartate Amino Transferase 39 U/L (17-59); Bilirubin,Total 0.3 mg/dl (0.2-1.3); Blood Urea Nitrogen 21 mg/dl (9-20); Calcium 8.1 mg/dl (8.4-10.2); Carbon Dioxide 27 mmol/L (22.0-30.0); Chloride 110 mmol/L (98-107); Creatinine Clearance Estimated 57 mL/min (50-200); Estimated Glomerular Filt Rate 112 ml/min (>60); GFR (African American) 136 ML/MIN (>60); Globulin 2.4 g/dL (1.3-3.2); Glucose 89 mg/dl (74-100); Potassium 3.7 mmoL/L (3.5-5.1); Sodium 138 mmol/L (136-145); Total Protein,Serum 4.9 g/dl (6.3-8.2)
[2024-06-18 07:04] LABS: Basophils % 0.4 % (0.1-2.0); Eosinophils # 0.3 K/mm3 (0.0-0.4); Eosinophils % 6.3 % (0.1-12.0); Hematocrit 36.4 % (42.0-52.0); Hemoglobin 11.7 g/dL (14.1-18.0); Lymphocytes # 0.7 K/mm3 (0.7-4.5); Lymphocytes % 14.8 % (10-50); Mean Corpuscular HGB Conc 32.2 g/dL (31.8-35.4); Mean Corpuscular Hemoglobin 30.7 pg (27.0-31.2); Mean Corpuscular Volume 95.4 fl (80-94); Mean Platelet Volume 9.3 fl (7.4-10.4); Monocytes # 0.3 K/mm3 (0.1-1.0); Monocytes % 7.2 % (1.7-9.3); Neutrophils # 3.2 K/mm3 (1.8-7.8); Neutrophils % 71.3 % (37.0-80.0); Platelet Count 118 K/mm3 (142-424); Red Blood Count 3.81 M/mm3 (4.60-6.20); Red Cell Distribution Width 13.9 % (11.5-17.5); White Blood Count 4.5 K/mm3 (4.8-10.8)
[2024-06-18 07:41] LABS: Magnesium 1.6 mg/dl (1.6-2.3)
[2024-06-18 07:47] VITALS: BP 105/62; PULSE 67; RESP 17; TEMP 37.1; O2SAT 96
[2024-06-18] MEDS: DOCUSATE SODIUM 100 MG CAPSULE PO (07:51)
[2024-06-18] MEDS: SERTRALINE 50MG TABLET 50 MG PO (07:51)
--- NOTE | 2024-06-18 08:01 | P.DS_ITS ---
General Admission date:: 06/16/24 Discharge date: 06/18/24 HPI HPI HPI: This is a 68-year-old male with a history of urinary retention with indwelling Gonzalez catheter, peripheral vascular disease, mood disorder, prior CVA, hyperlipidemia, anticoagulation with Eliquis presenting with concern for lower abdominal pain. He notes that he feels like he needs to be but cannot. He states that he emptied a very small amount of urine out of his leg bag around 3 PM, but it has had no urine in it since then. He does note that he is on antibiotic treatment for urinary tract infection, which has been on for approximately 2 weeks. He is not sure what he is taking. On medical record review from his primary care provider, it appears that he was seen and was taken off of Levaquin and prescribed Bactrim 06/11/2024. He was also given urology referral, but it appears he is not yet seen them. He was given a dose of IM Rocephin at that time. His Gonzalez has been in place since he was seen at ED at the beginning of May. Most of the previous was taken form ED documentation. patient does not want to cooperate with interview. stated he wants to eat . Admitted for further management Hospital Course Hospital Course Hospital Course: 68-year-old male with a history of urinary retention with indwelling Gonzalez catheter, peripheral vascular disease, mood disorder, prior CVA, hyperlipidemia, anticoagulation with Eliquis presenting with concern for lower abdominal pain. On arrival bladder scan was performed which demonstrated >450mL. Gonzalez catheter was exchanged with gross hematuria out. Labs demonstrated CELSO with a creatinine of 2 from a baseline of 0.9, likely in the setting of Gonzalez obstruction. Gonzalez catheter was placed, and fluid resuscitation started. Patient also has transaminitis, which appears new from prior lab evaluation. Culture sent at time of admission, CT of abdomen showed normal liver appearance stenosis of right iliac (which is not new). Patient admitted for further management. Has seen improvement in his urine output, urine clearing with holding of blood thinners. Therapy working with patient, needs skilled therapy for rehab. Has close follow-up with urology to evaluate retention and catheter. Stable to discharge to rehab. 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 Gonzalez remained in place after exchange. Urine showed improvement with holding blood thinners including Eliquis and aspirin. Flushed occasionally due to sediment but continued to have good flow. Initially on Zosyn for suspected UTI. Given previous cultures, transitioned to Levaquin at discharge to complete 7 days of antibiotics total. Urine culture this go around was negative however he was on antibiotics prior to admission. Previous culture was Klebsiella sensitive to fluoroquinolones. White cell count has been normal for at least 48 hours. White cell count of 4.5 on day of discharge. Hemoglobin 11.7. Kidney function normal with BUN 21, creatinine 0.7. Overall doing well. Stable to discharge to rehab for further management. Would benefit from repeat CBC, CMP, magnesium in 1 week to monitor stability of hemoglobin, kidney function, electrolytes. transaminitis: unclear etilogy. CT of abdomen showed normal liver appareance, liver enzymes normalized. Suspect secondary to medications or acute illness. Holding statin. PVD: right iliac stenosis, likely chronic. Recommend monitoring pulses on a regular basis and right lower extremity. Continue to hold Eliquis pending follow-up with urology and resolution of hematuria. mood disorder Continue home Zoloft Tolerating p.o. intake. Having bowel movements. Stable to discharge to rehab. Exam Data for Last 24 hours Vital signs and Labs for Last 24 Hours: Temp Pulse Resp BP Pulse Ox O2 Del Method O2 Flow Rate 98.7 F 67 17 105/62 L 96 Room Air 2 06/18/24 07:47 06/18/24 07:47 06/18/24 07:47 06/18/24 07:47 06/18/24 07:47 06/18/24 07:47 06/17/24 06:43 FiO2 28 06/16/24 19:02 Laboratory Results - last 24 hr 06/18/24 05:49: WBC 4.5 L D, RBC 3.81 L, Hgb 11.7 L, Hct 36.4 L, MCV 95.4 H, MCH 30.7, MCHC 32.2, RDW 13.9, Plt Count 118 L, MPV 9.3, Neut % (Auto) 71.3, Lymph % (Auto) 14.8, [place] % (Auto) 7.2, Eos % (Auto) 6.3, Baso % (Auto) 0.4, Neut # (Auto) 3.2, Lymph # (Auto) 0.7, [place] # (Auto) 0.3, Eos # (Auto) 0.3, Baso # (Auto) 0.0, Sodium 138, Potassium 3.7, Chloride 110 H, Carbon Dioxide 27, Anion Gap 4.7 L, BUN 21 H D, Creatinine 0.70, Estimated Creat Clear 57, Estimated GFR 112, Est GFR ( Amer) 136, Glucose 89, Calcium 8.1 L, Magnesium 1.6 D, Total Bilirubin 0.3, AST 39 D, ALT 45 D, Alkaline Phosphatase 54, Total Protei n 4.9 L, Albumin 2.5 L, Globulin 2.4, Albumin/Globulin Ratio 1.0 L I & O for Last 24 hours: Intake & Output 06/15/24 06/16/24 06/17/24 06/18/24 23:59 23:59 23:59 23:59 Intake Total 2505 / 2745 3520 / 3570 290 / 290 Output Total 1050 / 1050 850 / 850 900 / 900 Balance 1455 / 1695 2670 / 2720 -610 / -610 Weight 56.699 kg 52.299 kg 54.567 kg 57.062 kg Microbiology Reports for the Last 24 Hours: Microbiology 06/15/24 22:18 Urine,Catheterized Urine Culture - Final NO GROWTH AFTER 48 HOURS 06/16/24 00:49 Blood Blood Culture - Preliminary NO GROWTH AFTER 48 HOURS 06/16/24 00:49 Blood Blood Culture - Preliminary NO GROWTH AFTER 48 HOURS Constitutional Constitutional: no acute distress, thin, chronically ill appearing, disheveled and cooperative *Routine HEENT Exam Head: Present normocephalic Eye: Present EOMI and PERRL ENT: Present mucous membranes moist *Routine Neck Exam Neck: Present supple; Absent lymphadenopathy *Routine Respiratory Exam Respiratory: Present CTA bilaterally; Absent rhonchi, wheezes or crackles *Routine Cardiovascular Exam Cardiovascular: Present RRR *Routine Abdominal Exam Abdominal: Present soft and normoactive bowel sounds; Absent tenderness *Routine Rectal Exam Patient deferred: visual exam *Routine Exam Comments: Gonzalez in place, light red urine *Routine Extremities Exam Extremities: Absent cyanosis, clubbing or edema *Routine Skin Exam Skin: Present warm; Absent rash *Routine Neurological Exam Neurological: Present alert and moving all extremities; Absent altered mental status Comments: Oriented to self, place, and situation; globally weak Results Data Completed and Pending Labs on day of discharge: Labs from last 24 hours 06/18/24 05:49 WBC 4.5 L D RBC 3.81 L Hgb 11.7 L Hct 36.4 L MCV 95.4 H MCH 30.7 MCHC 32.2 RDW 13.9 Plt Count 118 L MPV 9.3 Neut % (Auto) 71.3 Lymph % (Auto) 14.8 [place] % (Auto) 7.2 Eos % (Auto) 6.3 Baso % (Auto) 0.4 Neut # (Auto) 3.2 Lymph # (Auto) 0.7 [place] # (Auto) 0.3 Eos # (Auto) 0.3 Baso # (Auto) 0.0 Sodium 138 Potassium 3.7 Chloride 110 H Carbon Dioxide 27 Anion Gap 4.7 L BUN 21 H D Creatinine 0.70 Estimated Creat Clear 57 Estimated GFR 112 Est GFR ( Amer) 136 Glucose 89 Calcium 8.1 L Magnesium 1.6 D Total Bilirubin 0.3 AST 39 D ALT 45 D Alkaline Phosphatase 54 Total Protein 4.9 L Albumin 2.5 L Globulin 2.4 Albumin/Globulin Ratio 1.0 L Preliminary micro results at discharge 06/16/24 00:49 Blood Culture - Preliminary Blood NO GROWTH AFTER 48 HOURS 06/16/24 00:49 Blood Culture - Preliminary Blood NO GROWTH AFTER 48 HOURS DS: Diagnosis Discharge Diagnosis (1) CELSO (acute kidney injury): Status: Acute Code(s): N17.9 - Acute kidney failure, unspecified (2) Chronic UTI: Status: Acute Code(s): N39.0 - Urinary tract infection, site not specified (3) Hematuria: Status: Acute Code(s): R31.9 - Hematuria, unspecified Qualifiers: Hematuria type: gross Qualified Code(s): R31.0 - Gross hematuria (4) Abdominal pain, lower: Status: Acute Code(s): R10.30 - Lower abdominal pain, unspecified (5) Transaminitis: Status: Acute Code(s): R74.01 - Elevation of levels of liver transaminase levels (6) Complication, blocked Gonzalez catheter: Status: Acute Code(s): T83.091A - Other mechanical complication of indwelling urethral catheter, initial encounter Qualifiers: Encounter type: initial encounter Qualified Code(s): T83.091A - Other mechanical complication of indwelling urethral catheter, initial encounter (7) Acute urinary retention: Status: Acute Code(s): R33.8 - Other retention of urine (8) Constipated: Status: Acute Code(s): K59.00 - Constipation, unspecified Qualifiers: Constipation type: unspecified constipation type Qualified Code(s): K59.00 - Constipation, unspecified (9) Peripheral vascular disease: Status: Acute Code(s): I73.9 - Peripheral vascular disease, unspecified (10) Unspecified mood [affective] disorder: Status: Acute Code(s): F39 - Unspecified mood [affective] disorder Meds Home Medications and Allergies Home Medications ?Medication ?Instructions ?Recorded ?Confirmed ?Type atorvastatin 40 mg tablet (Lipitor) 40 mg PO HS 06/11/24 06/16/24 History calcium carbonate 500 mg-vitamin 1 tab PO BID 06/11/24 06/16/24 History D3 10 mcg (400 unit) tablet carvedilol 3.125 mg tablet 3.125 mg PO BID 06/11/24 06/16/24 History ergocalciferol (vitamin D2) 1,250 1,250 mcg PO WEEKLY 06/11/24 06/16/24 History mcg (50,000 unit) capsule fluticasone fur. 100 mcg-umeclid 1 inh inhalation DAILY 06/11/24 06/16/24 History 62.5 mcg-vilant 25 mcg inhalat.powder (Trelegy Ellipta) sertraline 50 mg tablet 50 mg PO DAILY 06/11/24 06/16/24 History acetaminophen 325 mg tablet 650 mg (2 x 325 mg) PO Q4HP PRN 06/18/24 Rx Fever Or Mild Pain (1-3) #0 tabs docusate sodium 100 mg capsule 100 mg PO BID #0 caps 06/18/24 Rx levofloxacin 750 mg tablet 750 mg PO 1100 3 days #3 tabs 06/18/24 Rx melatonin 5 mg tablet 10 mg (2 x 5 mg) PO HS #0 tabs 06/18/24 Rx nicotine 21 mg/24 hr daily 21 mg transdermal DAILYP PRN 08/01/24 Rx transdermal patch Nicotine Cravings #0 ea New Prescriptions to Start Prescriptions: levofloxacin Yuriy Lewis Allergies Allergy/AdvReac Type Severity Reaction Status Date / Time No Known Allergies Allergy Verified 06/11/24 15:28 Discharge Plan Disposition Patient Disposition: Xfer SNF Condition: Fair Discharge Order Discharge Orders: Discharge Order (Routine); Ordered 06/18/24 Ordered By: Yuriy Lewis Follow up Plan Follow up with: Jluis Sexton MD [Staff Physician] - Enter time for follow up (Already has appointment, please add scheduled appointment to his discharge paperwork for the [facility].) Prescriptions/Medication Reconciliation: New acetaminophen 325 mg Tablet 650 mg PO Q4HP PRN (Reason: Fever Or Mild Pain (1-3)) Qty: 0 0RF docusate sodium 100 mg Capsule 100 mg PO BID Qty: 0 0RF melatonin 5 mg Tablet 10 mg PO HS Qty: 0 0RF nicotine 21 mg/24 hr Patch 24 Hour 21 mg transdermal DAILYP PRN (Reason: Nicotine Cravings) Qty: 0 0RF levofloxacin 750 mg Tablet 750 mg PO 1100 3 Days Qty: 3 0RF Continued ergocalciferol (vitamin D2) 1,250 mcg (50,000 unit) capsule 1,250 mcg PO WEEKLY sertraline 50 mg tablet 50 mg PO DAILY Trelegy Ellipta 100-62.5-25 mcg blister with device 1 inh inhalation DAILY calcium carbonate-vitamin D3 500 mg-10 mcg (400 unit) tablet 1 tab PO BID atorvastatin [Lipitor] 40 mg tablet 40 mg PO HS Held carvedilol 3.125 mg tablet 3.125 mg PO BID Hold Instructions: Reevaluate need if develops hypertension Rx Instructions: must administer with a meal/food Discontinued aspirin [Adult Aspirin Regimen] 81 mg tablet,delayed release (DR/EC) 81 mg PO DAILY apixaban 5 mg tablet 5 mg PO BID sulfamethoxazole-trimethoprim [Bactrim DS] 800-160 mg tablet 1 tab PO BID Qty: 20 0RF Problem Reconciliation Problems Reviewed?: Yes Patient Discharge Instructions ACTIVITY: Continue current activity and Ambulate as tolerated DIET: continue same diet Patient Instructions: DI for Urinary Retention in Men, DI for Acute Kidney Injury, Catheter-Associated Urinary Tract Infection Print Language: Yoruba Providers Primary Care Provider: Nick Beal Admit Provider: Yuriy Lewis Attending Provider: Yuriy Lewis
--- NOTE | 2024-06-18 10:04 | PC.NURSE ---
Report called to Ned RANDLE at [facility].
[2024-06-18 11:29] VITALS: BP 109/60; PULSE 61; RESP 18; TEMP 37.1; O2SAT 93
[2024-06-18] MEDS: levoFLOXacin 750 MG TABLET PO (11:41)
[2024-06-18] MEDS: ONDANSETRON 4MG/2ML VIAL 4 MG IV (12:01)
--- NOTE | 2024-06-18 13:09 | PC.NURSE ---
Called daughter Aniya three times with no answer.
== END 2024-06-18 16:48 ==
LOC: ER 06-16 01:09 → 2ND 06-16 02:28
PROVIDERS: Emergency Medicine; Nurse Practitioner Family; Admitting Provider Internal Medicine Adolescent Medicine; Emergency Provider Emergency Medicine; PCP Family Medicine; Visit Provider Internal Medicine Adolescent Medicine
DX: N39.0 Urinary tract infection, site not specified (principal); R10.30 Lower abdominal pain, unspecified; R74.01 Elevation of levels of liver transaminase levels; N17.9 Acute kidney failure, unspecified; R31.0 Gross hematuria; T83.091A Other mechanical complication of indwelling urethral catheter, initial encounter; R33.8 Other retention of urine; K59.00 Constipation, unspecified; I73.9 Peripheral vascular disease, unspecified; F39 Unspecified mood [affective] disorder; Z79.899 Other long term (current) drug therapy; F17.210 Nicotine dependence, cigarettes, uncomplicated
CPT/HCPCS: 36415; 51702; 74177; 76705; 80053; 80076; 81001; 83605; 83735; 84145; 85007; 85025; 85027; 85610; 85730; 86140; 87040; 87086; 94640; 94760; 97163; 97166; 97530; 97535; 99285; G0378; J0131; J1885; J2270; J2405; J2543; J7120; Q9967

== ENCOUNTER 2024-07-12 09:12 | Emergency (ER) | payer MEDICARE, SELFPAY ==
[2024-07-12] VITALS (13 sets, daily range): BP systolic 107–178; BP diastolic 56–100; PULSE 55–107; RESP 16–34; TEMP 36.6–36.7; O2SAT 96–97; BMI 18.2
--- NOTE | 2024-07-12 09:12 | PC.NURSE ---
STAFF AT [facility]
--- NOTE | 2024-07-12 09:34 | HMH.EDGENADL ---
Discharge Plan Disposition Patient Disposition: Home, Self-Care Prescriptions Prescriptions: New cefdinir 300 mg capsule 300 mg PO BID 10 Days Qty: 20 0RF No Action ergocalciferol (vitamin D2) 1,250 mcg (50,000 unit) capsule 1,250 mcg PO WEEKLY carvedilol 3.125 mg tablet 3.125 mg PO BID Rx Instructions: must administer with a meal/food sertraline 50 mg tablet 50 mg PO DAILY Trelegy Ellipta 100-62.5-25 mcg blister with device 1 inh inhalation DAILY calcium carbonate-vitamin D3 500 mg-10 mcg (400 unit) tablet 1 tab PO BID atorvastatin [Lipitor] 40 mg tablet 40 mg PO HS acetaminophen 325 mg Tablet 650 mg PO Q4HP PRN (Reason: Fever Or Mild Pain (1-3)) Qty: 0 0RF docusate sodium 100 mg Capsule 100 mg PO BID Qty: 0 0RF melatonin 5 mg Tablet 10 mg PO HS Qty: 0 0RF nicotine 21 mg/24 hr Patch 24 Hour 21 mg transdermal DAILYP PRN (Reason: Nicotine Cravings) Qty: 0 0RF levofloxacin 750 mg Tablet 750 mg PO 1100 3 Days Qty: 3 0RF Referrals Follow up/Referrals: Provider,Referral, MD [Referring] - See instructions Activity Restrictions/Add. Instructions Additional Instructions/Restrictions: Please hold your Eliquis and do not take it again until your blood in your urine is completely resolved. As discussed you have a urinary tract infection associated with your catheter and is strongly advised that you follow-up closely with a urologist to discuss further management of these issues. Clinical Impressions Clinical Impression: Acute urinary retention, Complication of Gonzalez catheter, Hematuria, Catheter-associated urinary tract infection Instructions Patient Instructions: DI for Acute Abdominal Pain Print Language Print Language: Wolof Discharge ED Provider: Bailey Palafox General Adult HPI General Chief complaint: Abdominal Pain Stated complaint: ABD PAIN Time Seen by Provider: 07/12/24 09:25 Mode of Arrival: EMS Source of Information: Patient Limitations: No Limitations Description of Symptoms (Recalled from ER Triage Doc. by RN): Patient reports abdomen pain for 3 weeks. States he has a chronic gonzalez catheter and has a UTI. History of Present Illness HPI narrative: Patient is a 68-year-old male with a history of chronic urinary retention secondary to neurogenic bladder from a stroke who presents today with lower abdominal discomfort. He was admitted in the hospital 1 month ago for similar complaints at which point he had a clot in his Gonzalez catheter causing acute urinary retention and acute kidney injury. He states that he feels similar today. States his pain is in the lower abdominal region. Denies any other symptoms. Related Data Home Medications ?Medication ?Instructions ?Recorded ?Confirmed atorvastatin 40 mg tablet (Lipitor) 40 mg PO HS 06/11/24 06/16/24 calcium carbonate 500 mg-vitamin 1 tab PO BID 06/11/24 06/16/24 D3 10 mcg (400 unit) tablet carvedilol 3.125 mg tablet 3.125 mg PO BID 06/11/24 06/16/24 ergocalciferol (vitamin D2) 1,250 1,250 mcg PO WEEKLY 06/11/24 06/16/24 mcg (50,000 unit) capsule fluticasone fur. 100 mcg-umeclid 1 inh inhalation DAILY 06/11/24 06/16/24 62.5 mcg-vilant 25 mcg inhalat.powder (Trelegy Ellipta) sertraline 50 mg tablet 50 mg PO DAILY 06/11/24 06/16/24 Previous Rx's ?Medication ?Instructions ?Recorded acetaminophen 325 mg tablet 650 mg (2 x 325 mg) PO Q4HP PRN 06/18/24 Fever Or Mild Pain (1-3) #0 tabs docusate sodium 100 mg capsule 100 mg PO BID #0 caps 06/18/24 levofloxacin 750 mg tablet 750 mg PO 1100 3 days #3 tabs 06/18/24 melatonin 5 mg tablet 10 mg (2 x 5 mg) PO HS #0 tabs 06/18/24 nicotine 21 mg/24 hr daily 21 mg transdermal DAILYP PRN 06/18/24 transdermal patch Nicotine Cravings #0 ea cefdinir 300 mg capsule 300 mg PO BID 10 days #20 caps 07/12/24 Allergies Allergy/AdvReac Type Severity Reaction Status Date / Time No Known Allergies Allergy Verified 06/11/24 15:28
[2024-07-12 09:40] LABS: Basophils % 0.4 % (0.1-2.0); Eosinophils % 0.4 % (0.1-12.0); Hematocrit 46.2 % (42.0-52.0); Hemoglobin 14.7 g/dL (14.1-18.0); Lymphocytes # 0.7 K/mm3 (0.7-4.5); Lymphocytes % 9.7 % (10-50); Mean Corpuscular HGB Conc 31.7 g/dL (31.8-35.4); Mean Corpuscular Volume 94.7 fl (80-94); Monocytes # 0.4 K/mm3 (0.1-1.0); Neutrophils # 5.8 K/mm3 (1.8-7.8); Neutrophils % 83.6 % (37.0-80.0); Platelet Count 194 K/mm3 (142-424); Red Blood Count 4.88 M/mm3 (4.60-6.20); Red Cell Distribution Width 13.7 % (11.5-17.5); White Blood Count 6.9 K/mm3 (4.8-10.8)
[2024-07-12 09:50] LABS: Alanine Aminotransferase 81 U/L (12-78); Albumin Level 4.2 g/dl (3.5-5.0); Albumin/Globulin Ratio 1.3 (1.1-1.8); Alkaline Phosphatase 110 U/L (38-126); Anion Gap 11.9 mEq/L (5-15); Aspartate Amino Transferase 92 U/L (17-59); Blood Urea Nitrogen 14 mg/dl (9-20); Calcium 9.7 mg/dl (8.4-10.2); Carbon Dioxide 25 mmol/L (22.0-30.0); Chloride 111 mmol/L (98-107); Creatinine Clearance Estimated 54 mL/min (50-200); Estimated Glomerular Filt Rate 96 ml/min (>60); GFR (African American) 116 ML/MIN (>60); Globulin 3.3 g/dL (1.3-3.2); Glucose 96 mg/dl (74-100); Potassium 3.9 mmoL/L (3.5-5.1); Sodium 144 mmol/L (136-145); Total Protein,Serum 7.5 g/dl (6.3-8.2)
[2024-07-12 10:17] LABS: Microscopic, Urine URINE MICROSCOPIC (MICROSCOPIC)
[2024-07-12 10:24] LABS: Appearance,Urine CLOUDY (Clear); Blood, Urine 3+ (Negative); Color,Urine DARK YELLOW (Yellow); Glucose,Urine (UA) Negative (Negative); Ketones,Urine Negative (Negative); Leukocyte Esterase,Urine 2+ (Negative); Nitrate,Urine POSITIVE (Negative); PH,Urine 6.5 (5.0-8.5); Protein,Urine 1+ (Negative); Specific Gravity, Urine 1.025 (1.005-1.030); Urobilinogen,Urine 0.2 EU/dl (0.2)
[2024-07-12 10:33] LABS: Bilirubin,Urine 1+ (Negative)
[2024-07-12 10:40] LABS: Amorphous Sediment,Urine Trace /lpf; Bacteria,Urine 2+ /lpf; RBC,Urine 20-50 #/hpf (0-3)
--- NOTE | 2024-07-12 12:19 | PC.NURSE ---
pt RESTING. NO NEEDS VOICED AT THIS TIME.
--- NOTE | 2024-07-12 12:45 | PC.NURSE ---
Dr. Palafox at bedside
--- NOTE | 2024-07-12 13:04 | PC.NURSE ---
Attempted to call pt's brother to come pick him up, no answer. Pt lives in [facility] and [facility] bus only travel there for Medicaid pt's.
--- NOTE | 2024-07-12 13:24 | PC.NURSE ---
pt has a friend Reyes who might be able to get him but he does not have her phone number. Charging pt's cell phone at nurse's station to obtain phone numbers
== END 2024-07-12 16:28 | disposition home or self-care (01) ==
PROVIDERS: Emergency Provider Student in an Organized Health Care Education/Training Program; PCP Family Medicine
DX: T83.511A Infection and inflammatory reaction due to indwelling urethral catheter, initial encounter (principal); R31.9 Hematuria, unspecified; R33.9 Retention of urine, unspecified; N31.9 Neuromuscular dysfunction of bladder, unspecified; R10.30 Lower abdominal pain, unspecified; I73.9 Peripheral vascular disease, unspecified; I69.398 Other sequelae of cerebral infarction; F17.200 Nicotine dependence, unspecified, uncomplicated
CPT/HCPCS: 51702; 80053; 81001; 85025; 87077; 87086; 96361; 96374; 99285; J0131; J7120

== ENCOUNTER 2024-07-23 17:11 | Emergency (ER) | payer MEDICARE, SELFPAY ==
[2024-07-23 17:52] VITALS: BP 103/72; PULSE 105; RESP 14; TEMP 36.6; O2SAT 98; BMI 21.2
[2024-07-23] MEDS: KETOROLAC 30MG/ML VIAL 30 MG IV (17:57)
[2024-07-23 18:06] LABS: Albumin Level 4.2 g/dl (3.5-5.0); Chloride 104 mmol/L (98-107); Potassium 4.1 mmoL/L (3.5-5.1); Sodium 137 mmol/L (136-145)
[2024-07-23 18:09] LABS: Alanine Aminotransferase 50 U/L (12-78); Albumin/Globulin Ratio 1.4 (1.1-1.8); Alkaline Phosphatase 76 U/L (38-126); Anion Gap 7.1 mEq/L (5-15); Aspartate Amino Transferase 40 U/L (17-59); Bilirubin,Total 0.6 mg/dl (0.2-1.3); Blood Urea Nitrogen 20 mg/dl (9-20); Carbon Dioxide 30 mmol/L (22.0-30.0); Creatinine Clearance Estimated 64 mL/min (50-200); Estimated Glomerular Filt Rate 96 ml/min (>60); GFR (African American) 116 ML/MIN (>60); Globulin 2.9 g/dL (1.3-3.2); Total Protein,Serum 7.1 g/dl (6.3-8.2)
[2024-07-23 18:10] LABS: Calcium 9.3 mg/dl (8.4-10.2); Glucose 123 mg/dl (74-100)
--- NOTE | 2024-07-23 18:11 | PC.NURSE ---
catheter removed. pt requests to have a bm prior to reinsertion of gonzalez. pt ambulated to the bathroom.
[2024-07-23 18:15] LABS: Basophils # 0.1 K/mm3 (0-0.2); Eosinophils # 0.2 K/mm3 (0.0-0.4); Hematocrit 47.3 % (42.0-52.0); Hemoglobin 15.3 g/dL (14.1-18.0); Lymphocytes % 14.7 % (10-50); Mean Corpuscular HGB Conc 32.3 g/dL (31.8-35.4); Mean Corpuscular Hemoglobin 30.5 pg (27.0-31.2); Mean Corpuscular Volume 94.7 fl (80-94); Mean Platelet Volume 8.5 fl (7.4-10.4); Monocytes # 0.4 K/mm3 (0.1-1.0); Monocytes % 5.9 % (1.7-9.3); Neutrophils # 4.9 K/mm3 (1.8-7.8); Neutrophils % 75.3 % (37.0-80.0); Platelet Count 211 K/mm3 (142-424); Red Blood Count 4.99 M/mm3 (4.60-6.20); Red Cell Distribution Width 13.9 % (11.5-17.5); White Blood Count 6.5 K/mm3 (4.8-10.8)
--- NOTE | 2024-07-23 18:25 | ED_ITS ---
Discharge Plan Disposition Patient Disposition: Home, Self-Care Condition: Good Prescriptions Prescriptions: New cefdinir 300 mg capsule 300 mg PO BID 7 Days Qty: 14 0RF No Action ergocalciferol (vitamin D2) 1,250 mcg (50,000 unit) capsule 1,250 mcg PO WEEKLY carvedilol 3.125 mg tablet 3.125 mg PO BID Rx Instructions: must administer with a meal/food sertraline 50 mg tablet 50 mg PO DAILY Trelegy Ellipta 100-62.5-25 mcg blister with device 1 inh inhalation DAILY calcium carbonate-vitamin D3 500 mg-10 mcg (400 unit) tablet 1 tab PO BID atorvastatin [Lipitor] 40 mg tablet 40 mg PO HS cefdinir 300 mg capsule 300 mg PO BID 10 Days Qty: 20 0RF acetaminophen 325 mg Tablet 650 mg PO Q4HP PRN (Reason: Fever Or Mild Pain (1-3)) Qty: 0 0RF docusate sodium 100 mg Capsule 100 mg PO BID Qty: 0 0RF melatonin 5 mg Tablet 10 mg PO HS Qty: 0 0RF nicotine 21 mg/24 hr Patch 24 Hour 21 mg transdermal DAILYP PRN (Reason: Nicotine Cravings) Qty: 0 0RF levofloxacin 750 mg Tablet 750 mg PO 1100 3 Days Qty: 3 0RF Activity Restrictions/Add. Instructions Additional Instructions/Restrictions: You have been evaluated in the ED for your complaints. You may follow-up with your PCP in the next 3 to 5 days. Please return to ED for any new or worsening symptoms. I have written for cefdinir to treat your UTI. Please follow-up with urology as discussed. Clinical Impressions Clinical Impression: UTI (urinary tract infection), Complication of Gonzalez catheter Instructions Patient Instructions: DI for Urinary Tract Infection (UTI), DI for Urinary Tract Infection in Children Print Language Print Language: Jordanian Discharge ED Provider: Nas Dukes Adult [facility] General Chief complaint: Urogenital-Male Stated complaint: abdominal pain Time Seen by Provider: 07/23/24 17:29 Mode of Arrival: EMS Source of Information: Patient Limitations: No Limitations Description of Symptoms (Recalled from ER Triage Doc. by RN): pt has a gonzalez cath that was placed for a UTI. pt states he has not f/u. pt reports it stopped draining earlier today after he switched from the gonzalez bag to the leg bag. pt states the leg bag came off. pt arrives with the gonzalez in place but it is not attatched to anything. pt c/o sharp lower abd pain that is a 10/10. History of Present Illness HPI narrative: 68-year-old male with past medical history significant for PVD, aortic atherosclerosis, urinary retention s/p Gonzalez catheter placement in May of this year, reports history of lung cancer not currently on treatment, presents today for evaluation concerning leaking around his Gonzalez catheter with associated suprapubic pain. He also reports dysuria without hematuria. He states that he was supposed to follow-up with urology however secondary to travel issues he has been unable to. He denies any fevers, chills or any other associated symptoms at this time. Related Data Home Medications ?Medication ?Instructions ?Recorded ?Confirmed atorvastatin 40 mg tablet (Lipitor) 40 mg PO HS 06/11/24 06/16/24 calcium carbonate 500 mg-vitamin 1 tab PO BID 06/11/24 06/16/24 D3 10 mcg (400 unit) tablet carvedilol 3.125 mg tablet 3.125 mg PO BID 06/11/24 06/16/24 ergocalciferol (vitamin D2) 1,250 1,250 mcg PO WEEKLY 06/11/24 06/16/24 mcg (50,000 unit) capsule fluticasone fur. 100 mcg-umeclid 1 inh inhalation DAILY 06/11/24 06/16/24 62.5 mcg-vilant 25 mcg inhalat.powder (Trelegy Ellipta) sertraline 50 mg tablet 50 mg PO DAILY 06/11/24 06/16/24 Previous Rx's ?Medication ?Instructions ?Recorded acetaminophen 325 mg tablet 650 mg (2 x 325 mg) PO Q4HP PRN 06/18/24 Fever Or Mild Pain (1-3) #0 tabs docusate sodium 100 mg capsule 100 mg PO BID #0 caps 06/18/24 levofloxacin 750 mg tablet 750 mg PO 1100 3 days #3 tabs 06/18/24 melatonin 5 mg tablet 10 mg (2 x 5 mg) PO HS #0 tabs 06/18/24 nicotine 21 mg/24 hr daily 21 mg transdermal DAILYP PRN 06/18/24 transdermal patch Nicotine Cravings #0 ea cefdinir 300 mg capsule 300 mg PO BID 10 days #20 caps 07/12/24 cefdinir 300 mg capsule 300 mg PO BID 7 days #14 caps 07/23/24 Allergies Allergy/AdvReac Type Severity Reaction Status Date / Time No Known Allergies Allergy Verified 07/23/24 18:00 [facility] Disclaimer: The information contained in this section may have been updated after the patient was seen, as this information can be updated by other users. Medical History (Updated 07/23/24 @ 20:22 by Nas Dukes DO) Unspecified mood [affective] disorder Peripheral vascular disease Atherosclerosis of aorta Acute UTI Acute urinary retention Gonzalez catheter in place Surgical History (Updated 06/16/24 @ 01:52 by Jorge Vaz RN) Previous back surgery Social History (Updated 06/16/24 @ 01:52 by Jorge Vaz RN) Smoking Status: Current every day smoker alcohol intake: former current occupational status: unemployed Travel in the last 8 weeks: None ROS Obtained: Yes All systems reviewed & no additional complaints except as documented Physical Exam General General appearance: alert and in no apparent distress Head Head exam: atraumatic and normocephalic Eye Eye exam: Present normal appearance, PERRL and EOMI ENT ENT exam: Present normal oropharynx and mucous membranes moist Neck Neck exam: Present full ROM; Absent meningismus Respiratory Respiratory exam: Absent respiratory distress, wheezes, stridor or accessory muscle use Cardiovascular Cardiovascular exam: Present normal rhythm Abdominal Exam Abdominal exam: Present soft and tenderness; Absent distention, guarding, rebound or rigidity Abdominal tenderness: Present suprapubic exam: Present normal inspection and other (Gonzalez catheter tubing in place without bag.) Neurological Exam Neurological exam: Present alert, oriented X3 and CN II-XII intact; Absent motor sensory deficit Psychiatric Psychiatric exam: Present normal affect and normal mood Skin Skin exam: Present warm and dry Medical Decision Making Medical Records Medical records reviewed: Yes I reviewed the patient's medical records. Aiden Inquiry Pt receiving controlled substance: No Aiden was queried for this patient: No Vital Signs: 07/23/24 17:52 07/23/24 19:30 Temperature 97.9 F Temperature Source Oral Pulse Rate 85 Pulse Rate [Left] 105 H Respiratory Rate 14 Blood Pressure 140/72 Blood Pressure [Right Arm] 103/72 L Blood Pressure Mean 93 Blood Pressure Mean [Right Arm] 82 Blood Pressure Source [Right Arm] Automatic Cuff Blood Pressure Position [Right Arm] Sitting 02 Sat by Pulse Oximetry 98 94 L Oxygen Delivery Method Room Air Room Air Lab Data Lab Results 07/23/24 17:50: WBC 6.5, RBC 4.99, Hgb 15.3, Hct 47.3, MCV 94.7 H, MCH 30.5, MCHC 32.3, RDW 13.9, Plt Count 211, MPV 8.5, Neut % (Auto) 75.3, Lymph % (Auto) 14.7, [place] % (Auto) 5.9, Eos % (Auto) 3.0, Baso % (Auto) 1.0, Neut # (Auto) 4.9, Lymph # (Auto) 1.0, [place] # (Auto) 0.4, Eos # (Auto) 0.2, Baso # (Auto) 0.1, Sodium 137, Potassium 4.1, Chloride 104, Carbon Dioxide 30, Anion Gap 7.1, BUN 20, Creatinine 0.80, Estimated Creat Clear 64, Estimated GFR 96, Est GFR ( Amer) 116, Glucose 123 H, Calcium 9.3, Total Bilirubin 0.6, AST 40, ALT 50, Alkaline Phosphatase 76, Total Protein 7.1, Albumin 4.2, Globulin 2.9, Albumin/Globulin Ratio 1.4 07/23/24 19:38: Urine Color Dark yellow, Urine Appearance Cloudy, Urine pH 6.5, Ur Specific [place] 1.025, Urine Protein 3+ A, Urine Glucose (UA) Negative, Urine Ketones Negative, Urine Blood 3+ A, Urine Nitrate Negative, Urine Bilirubin 1+ A, Urine Urobilinogen 1.0, Ur Leukocyte Esterase 2+ A, Urine RBC 50-100, Urine WBC 20-50, Ur Squamous Epith Cells Occasional, Urine Bacteria Trace 07/23/24 17:50 07/23/24 17:50 Orders (Tests/Meds): ED MEDICATIONS Discontinued Medications Generic Name Dose Route Start Last Admin Trade Name Freq PRN Reason Stop Dose Admin Cefdinir 300 mg 07/23/24 20:15 Cefdinir 300mg Capsule PO 07/23/24 20:16 ONCE ONE Sodium Chloride 1,000 mls @ 999 mls/hr 07/23/24 18:26 07/23/24 18:32 Sod Chlor 0.9% 1000ml Bag IV 07/23/24 19:26 999 mls/hr .Q1H1M ONE Administration Ketorolac Tromethamine 30 mg 07/23/24 17:41 07/23/24 17:57 Ketorolac 30mg/Ml Vial IV 07/23/24 17:42 30 mg ONCE ONE Administration Morphine Sulfate 4 mg 07/23/24 17:36 07/23/24 17:58 Morphine 4mg/Ml Syringe IV 07/23/24 17:37 Not Given ONCE ONE Morphine Sulfate 2 mg 07/23/24 18:26 07/23/24 18:33 Morphine 2mg/Ml Syringe IV 07/23/24 18:27 2 mg ONCE ONE Administration Ondansetron HCl 4 mg 07/23/24 17:36 07/23/24 17:58 Ondansetron 4mg/2ml Vial IV 07/23/24 17:37 Not Given ONCE ONE ORDERS Category Date Time Status CBC w/Auto Diff [Complete Blood Count Auto Diff] Stat Lab 07/23/24 17:50 Completed CMP [Comprehensive Metabolic Panel] Stat Lab 07/23/24 17:50 Completed UA [Urinalysis and Microscopic] Stat Lab 07/23/24 19:38 Completed Urine Culture Stat Micro 07/23/24 19:38 Received Medical Decision Narrative: 68-year-old male with past medical history significant for PVD, aortic atherosclerosis, urinary retention s/p Gonzalez catheter placement in May of this year, reports history of lung cancer not currently on treatment, presents today for evaluation concerning leaking around his Gonzalez catheter with associated suprapubic pain. He also reports dysuria without hematuria. He states that he was supposed to follow-up with urology however secondary to travel issues he has been unable to. On assessment he was hemodynamically stable and in no acute distress. Afebrile. His chest was clear to station bilaterally. Abdomen was soft and nondistended and was only tender in the suprapubic region. Gonzalez catheter tubing in place without bag attached. Other physical exam finds unremarkable. For diagnoses include but limited to UTI, Gonzalez catheter malfunction, CELSO, among others. Patient's bladder scan showed 19 mL initially. We were not able to obtain urine initially to rule out UTI and so I did give patient a bag of fluids. Urine was able to be obtained and his urinalysis did show signs of infection with 2+ leukocyte esterase, 20-50 WBCs, trace bacteria. His renal function was within range with a creatinine of 0.8. Patient's Gonzalez catheter was replaced. I will give him a dose of cefdinir here in the ED to initiate treatment of his urinary tract infection. Will send prescriptions. Discussed with patient follow-up with urology to further discuss his urinary retention and Gonzalez catheter. He verbalized understanding and agreed with plan. Provided with return precautions. Subsequently discharged Critical Care Critical Care Time Critical Care Time: No
[2024-07-23] MEDS: 0.9 % SODIUM CHLORIDE 1000ML 1,000 ML 999 ML IV (18:32)
[2024-07-23] MEDS: MORPHINE 2MG/ML SYRINGE 2 MG IV (18:33)
--- NOTE | 2024-07-23 18:40 | PC.NURSE ---
I rounded on the pt, no new complaints at this time. fluids infusing, waiting for a urine sample. I took him a pepsi. call andres in reach.
[2024-07-23 19:30] VITALS: BP 140/72; PULSE 85; O2SAT 94
--- NOTE | 2024-07-23 19:43 | PC.NURSE ---
rounded on pt at this time. Sterile urine specimen obtained and sent to lab. pt given 2 warm blankets.
[2024-07-23 19:46] LABS: Microscopic, Urine URINE MICROSCOPIC (MICROSCOPIC)
[2024-07-23 19:48] LABS: Blood, Urine 3+ (Negative); Glucose,Urine (UA) Negative (Negative); Ketones,Urine Negative (Negative); Leukocyte Esterase,Urine 2+ (Negative); Nitrate,Urine Negative (Negative); PH,Urine 6.5 (5.0-8.5); Protein,Urine 3+ (Negative); Specific Gravity, Urine 1.025 (1.005-1.030)
[2024-07-23 19:51] LABS: Appearance,Urine Cloudy (Clear); Bilirubin,Urine 1+ (Negative); Color,Urine Dark Yellow (Yellow)
[2024-07-23 20:01] LABS: Bacteria,Urine Trace /lpf; RBC,Urine 50-100 #/hpf (0-3); Squamous Epithelial Cell,Urine Occasional #/hpf (0-5); WBC,Urine 20-50 #/hpf (0-3)
[2024-07-23] MEDS: CEFDINIR 300MG CAPSULE 300 MG PO (20:23)
--- NOTE | 2024-07-23 20:26 | PC.NURSE ---
CALLED DISPATCH AT THIS TIME TO ATTEMPT TO ARRANGE TRANSPORTATION FOR PT TO GO BACK HOME.
--- NOTE | 2024-07-23 21:17 | PC.NURSE ---
rounded on pt at this time. pt voices no needs. per rick dispatcher we do not have an officer for transport at this time
[2024-07-23 22:06] VITALS: BP 117/73; PULSE 72; RESP 16; TEMP 36.8; O2SAT 98
--- NOTE | 2024-07-25 12:14 | PC.NURSE ---
URINE CULTURE DISCUSSED WITH DR COLLADO, NO NEW ORDERS
== END 2024-07-23 22:09 | disposition home or self-care (01) ==
PROVIDERS: Emergency Provider Emergency Medicine
DX: N39.0 Urinary tract infection, site not specified (principal); R10.30 Lower abdominal pain, unspecified; I73.9 Peripheral vascular disease, unspecified; F17.200 Nicotine dependence, unspecified, uncomplicated; I70.0 Atherosclerosis of aorta; T83.091A Other mechanical complication of indwelling urethral catheter, initial encounter
CPT/HCPCS: 51702; 80053; 81001; 85025; 87086; 87088; 96361; 96374; 96375; 99285; J1885; J2270; J7030

== ENCOUNTER 2024-08-07 11:17 | Emergency (ER) | payer MEDICARE, SELFPAY ==
[2024-08-07 11:18] VITALS: BP 137/90; PULSE 80; RESP 20; TEMP 36.6; O2SAT 96; BMI 21.2
[2024-08-07 11:22] VITALS: PULSE 63; O2SAT 96
--- NOTE | 2024-08-07 11:52 | ED_ITS ---
Discharge Plan Disposition Patient Disposition: Home, Self-Care Prescriptions Prescriptions: New levofloxacin 750 mg tablet 750 mg PO DAILY 5 Days Qty: 5 0RF No Action ergocalciferol (vitamin D2) 1,250 mcg (50,000 unit) capsule 1,250 mcg PO WEEKLY carvedilol 3.125 mg tablet 3.125 mg PO BID Rx Instructions: must administer with a meal/food sertraline 50 mg tablet 50 mg PO DAILY Trelegy Ellipta 100-62.5-25 mcg blister with device 1 inh inhalation DAILY calcium carbonate-vitamin D3 500 mg-10 mcg (400 unit) tablet 1 tab PO BID atorvastatin [Lipitor] 40 mg tablet 40 mg PO HS cefdinir 300 mg capsule 300 mg PO BID 10 Days Qty: 20 0RF cefdinir 300 mg capsule 300 mg PO BID 7 Days Qty: 14 0RF acetaminophen 325 mg Tablet 650 mg PO Q4HP PRN (Reason: Fever Or Mild Pain (1-3)) Qty: 0 0RF docusate sodium 100 mg Capsule 100 mg PO BID Qty: 0 0RF melatonin 5 mg Tablet 10 mg PO HS Qty: 0 0RF nicotine 21 mg/24 hr Patch 24 Hour 21 mg transdermal DAILYP PRN (Reason: Nicotine Cravings) Qty: 0 0RF levofloxacin 750 mg Tablet 750 mg PO 1100 3 Days Qty: 3 0RF Referrals Follow up/Referrals: Provider,Referral, MD [Primary Care Provider] - See instructions Activity Restrictions/Add. Instructions Additional Instructions/Restrictions: At this time it was felt you are safe to be discharged home. If new or worsening symptoms please do not hesitate to return the emergency department. Please take your medications as prescribed and follow-up with Dr. Sexton 08-10-2024 at 1:30 PM. Clinical Impressions Clinical Impression: Chronic UTI, Villarreal catheter in place Instructions Patient Instructions: DI for Urinary Tract Infection (UTI) Print Language Print Language: [place] Discharge ED Provider: Sujit Muller General Adult HPI General Chief complaint: Urogenital-Male Stated complaint: abd pain Time Seen by Provider: 08/07/24 11:19 Mode of Arrival: EMS Source of Information: Patient, EMS and Medical Record Limitations: No Limitations Description of Symptoms (Recalled from ER Triage Doc. by RN): Pt brought in by EMS with concerns of of urinary catheter issues. Pt reports the catheter is leaking and has been leaking for sometime. He reports it was placed on 05/19/24 due to a UTI. He reports they haven't changed it. I don't know why it's still in. I want it out dammit! . Denies any follow up with Urology. Denies any reason he can not void on his own. Denies any fever, chills, body aches, or n/v/d. He does report suprapubic area. His bladder is not distended and bladder scan is 0. History of Present Illness HPI narrative: Patient is a 68-year-old male with past medical history of catheter placement since May who is here to follow-up with urology who presents emergency department for evaluation of leaking catheter. He states that is leaking from the head of his penis and is soaking his jeans. He has no other acute complaints at this time and has been unable to follow-up with urology due to transportation. Per chart review he was recently seen for UTI and was discharged with cefdinir. Related Data Home Medications ?Medication ?Instructions ?Recorded ?Confirmed atorvastatin 40 mg tablet (Lipitor) 40 mg PO HS 06/11/24 06/16/24 calcium carbonate 500 mg-vitamin 1 tab PO BID 06/11/24 06/16/24 D3 10 mcg (400 unit) tablet carvedilol 3.125 mg tablet 3.125 mg PO BID 06/11/24 06/16/24 ergocalciferol (vitamin D2) 1,250 1,250 mcg PO WEEKLY 06/11/24 06/16/24 mcg (50,000 unit) capsule fluticasone fur. 100 mcg-umeclid 1 inh inhalation DAILY 06/11/24 06/16/24 62.5 mcg-vilant 25 mcg inhalat.powder (Trelegy Ellipta) sertraline 50 mg tablet 50 mg PO DAILY 06/11/24 06/16/24 Previous Rx's ?Medication ?Instructions ?Recorded acetaminophen 325 mg tablet 650 mg (2 x 325 mg) PO Q4HP PRN 06/18/24 Fever Or Mild Pain (1-3) #0 tabs docusate sodium 100 mg capsule 100 mg PO BID #0 caps 06/18/24 levofloxacin 750 mg tablet 750 mg PO 1100 3 days #3 tabs 06/18/24 melatonin 5 mg tablet 10 mg (2 x 5 mg) PO HS #0 tabs 06/18/24 nicotine 21 mg/24 hr daily 21 mg transdermal DAILYP PRN 06/18/24 transdermal patch Nicotine Cravings #0 ea cefdinir 300 mg capsule 300 mg PO BID 10 days #20 caps 07/12/24 cefdinir 300 mg capsule 300 mg PO BID 7 days #14 caps 07/23/24 levofloxacin 750 mg tablet 750 mg PO DAILY Chronic UTI 5 days 08/07/24 #5 tabs Allergies Allergy/AdvReac Type Severity Reaction Status Date / Time No Known Allergies Allergy Verified 07/23/24 18:00 [facility] Disclaimer: The information contained in this section may have been updated after the patient was seen, as this information can be updated by other users. Medical History (Updated 08/07/24 @ 13:53 by Sujit Muller MD) Unspecified mood [affective] disorder Peripheral vascular disease Atherosclerosis of aorta Acute UTI Acute urinary retention Villarreal catheter in place Surgical History (Updated 06/16/24 @ 01:52 by Jorge Vaz RN) Previous back surgery Social History (Updated 06/16/24 @ 01:52 by Jorge Vaz RN) Smoking Status: Current every day smoker alcohol intake: former current occupational status: unemployed Travel in the last 8 weeks: None ROS Obtained: Yes Systems reviewed as appropriate & no additional complaints except as documented Physical Exam General General appearance: alert and in no apparent distress Head Head exam: atraumatic and normocephalic Eye Eye exam: Present PERRL and EOMI ENT ENT exam: Present mucous membranes moist Neck Neck exam: Present normal inspection Chest Chest inspection: Present normal inspection and symmetric chest wall rise Respiratory Respiratory exam: Absent respiratory distress Cardiovascular Cardiovascular exam: Present regular rate and normal rhythm Abdominal Exam Abdominal exam: Present soft; Absent tenderness, guarding or rebound Extremities Exam Extremities exam: Present normal inspection Neurological Exam Neurological exam: Present alert Psychiatric Psychiatric exam: Present normal affect Skin Skin exam: Present warm and dry Medical Decision Making Medical Records Screening: Per USPSTF and CDC recommendations, given the prevalence of disease in our region, it is our hospital?s policy to screen for HIV and viral Hepatitis for all patients aged 18 and over and those with ongoing risk factors. [place]iden Inquiry Pt receiving controlled substance: No Vital Signs: 08/07/24 11:18 08/07/24 11:22 08/07/24 13:52 Temperature 97.9 F 97.9 F Temperature Source Oral Oral Pulse Rate 63 64 Pulse Rate [Right] 80 Respiratory Rate 20 18 Blood Pressure 130/80 Blood Pressure [Right Arm] 137/90 Blood Pressure Mean [Right Arm] 105 Blood Pressure Source [Right Arm] Automatic Cuff 02 Sat by Pulse Oximetry 96 96 Oxygen Delivery Method Room Air Room Air Room Air Lab Data Lab Results 08/07/24 12:36: Urine Color Yellow, Urine Appearance Clear, Urine pH 8.0, Ur Specific [place] 1.015, Urine Protein Negative, Urine Glucose (UA) Negative, Urine Ketones Negative, Urine Blood Trace-i, Urine Nitrate Negative, Urine Bilirubin Negative, Urine Urobilinogen 0.2, Ur Leukocyte Esterase 2+ A, Urine RBC Occasional, Urine WBC 5-10, Ur Squamous Epith Cells None, Urine Bacteria Trace Orders (Tests/Meds): ORDERS Category Date Time Status Urinalysis and Microscopic Stat Lab 08/07/24 12:36 Completed Urine Culture Stat Micro 08/07/24 12:36 Received Medical Decision Narrative: In summary patient is a 68-year-old male with past medical history described above who presents emergency department for evaluation of urine leaking around his catheter. Patient is hemodynamically stable nontoxic-appearing upon arrival, afebrile with a nonfocal exam. Catheter will be upsized at bedside and urine will be sent off for clean specimen to see if he has urinary tract infection. However he has no lower abdominal pain, no fever, no tachycardia and he may just be chronically colonized at this point given his poor catheter care. CT imaging from May obtained shows findings consistent with acute cystitis as well as mild diffuse enlargement the prostate gland measuring 5 cm in diameter. The case was discussed with urology Dr. Sexton, Villarreal be exchanged and he will follow-up on Saturday. Urinalysis reviewed by me, consistent with improving infection. Given this patient be transition to Levaquin for Pseudomonas coverage in the setting of catheter. I suspect that the reason the catheter was leaking is that the balloon was not fully inflated. Patient is appropriate for discharge at this time we will follow-up Saturday morning with Dr. Sexton. Critical Care Critical Care Time Critical Care Time: No
--- NOTE | 2024-08-07 12:02 | PC.NURSE ---
dr donald speaking with dr middleton
--- NOTE | 2024-08-07 12:38 | PC.NURSE ---
Removed 16f gonzalez cath and it was noted the saline balloon had only had 6ml in it as opposed to 10ml that should in it. Trouble shooting the balloon it was noted to have a small leak. I replaced the gonzalez with a larger size (18fr) as per Dr. Muller and Carlie's recommendation.
[2024-08-07 12:48] LABS: Microscopic, Urine URINE MICROSCOPIC (MICROSCOPIC)
--- NOTE | 2024-08-07 12:50 | PC.NURSE ---
Discussed with Care Management that pt will need assistance with a ride home. Domitila states with his insurance it will be private pay and will be $1/mile and estimated cost is $20 to get home to [place]. Pt reports that will be ok. Domitila states to call when paperwork is in-hand.
[2024-08-07 13:07] LABS: Appearance,Urine CLEAR (Clear); Bilirubin,Urine Negative (Negative); Blood, Urine TRACE-I (Negative); Color,Urine YELLOW (Yellow); Glucose,Urine (UA) Negative (Negative); Ketones,Urine Negative (Negative); Leukocyte Esterase,Urine 2+ (Negative); Nitrate,Urine Negative (Negative); Protein,Urine Negative (Negative); Specific Gravity, Urine 1.015 (1.005-1.030); Urobilinogen,Urine 0.2 EU/dl (0.2)
[2024-08-07 13:23] LABS: Bacteria,Urine Trace /lpf; RBC,Urine Occasional #/hpf (0-3)
[2024-08-07 13:52] VITALS: BP 130/80; PULSE 64; RESP 18; TEMP 36.6; O2SAT 96
[2024-08-07] MEDS: PHENAZOPYRIDINE 200MG TABLET 200 MG PO (14:07)
[2024-08-07] MEDS: ACETAMINOPHEN 500MG TAB 1000 MG PO (14:07)
[2024-08-07] MEDS: IBUPROFEN 400 MG TABLET 800 MG PO (14:07)
--- NOTE | 2024-08-07 14:44 | PC.NURSE ---
When educating pt on his d/c paperwork. He asked for pain medication. Stating it is very painful when the catheter moves it hurts up inside . I asked Dr. Muller regarding these medications. He placed orders in [facility] and pt was medicated. Pt also informed me that he used to take Melatonin to help him sleep, as it relaxes him and he hasn't slept well in over 2 wk. States [facility] but haven't been able to get it . OK'ed by . I was able to obtain OTC Melatonin and pyridium for pt. Pt was given a clean, dry pair of pants, new brief, and assisted in cleaning up his legs. Also called [employer] in regards to a ride home. They can arrange machine operator hop picker in 3-4 hrs ETA. We also called [facility]'s dept for the possibility for meeting each office at the [facility] line, but was unable to get [employer] to agree. Pt given water and prepared well for d/c.
--- NOTE | 2024-08-07 16:05 | PC.NURSE ---
Call received from lift driver for pt, states they will be here [phone]. Updated pt with this information. Given pillow and new warm blanket for comfort.
--- NOTE | 2024-08-07 17:14 | PC.NURSE ---
Pt called out for help, I immediately went to pt's room. He is asking for PB & crackers. I gave him 3 sets of PB & crackers. Pt became upset that I gave him PB & crackers and through the crackers on the bedside table and floor. States Well I can't use a knife and I haven't ate since breakfast I thought you would have given me at least a sandwich or something . I let the pt know, he asked for crackers and PB and I was honoring his request. He stated never-mind . I offered him 3 different sandwiches, agreed to ham/turkey. I offered him chips, he refused.
--- NOTE | 2024-08-07 17:28 | PC.NURSE ---
[employer] for pt called stating they were in the parking lot. Andres Auguste EMT-P at bedside assisting pt with collecting his belongings, when pt began upset at staff again and cursing, stating You're an asshole, I want a nurse . Myah Perez RN presented to bedside, pt began yelling at her. Asked pt to not yell and curse at staff. Let him know he is d/c and his ride is here and just trying to get him to his ride.
--- NOTE | 2024-08-10 08:19 | PC.NURSE ---
Lab called with notification of urine culture results. Discussed cx with Dr. Calhoun. Pt is on an appropriate abx, Levaquin. I also shared information with Urology, who pt has a follow up with today.
== END 2024-08-07 17:20 | disposition home or self-care (01) ==
PROVIDERS: Emergency Medicine; Emergency Provider Student in an Organized Health Care Education/Training Program
DX: N39.0 Urinary tract infection, site not specified (principal); T83.031A Leakage of indwelling urethral catheter, initial encounter; I73.9 Peripheral vascular disease, unspecified; F17.200 Nicotine dependence, unspecified, uncomplicated
CPT/HCPCS: 51702; 81001; 87086; 87088; 87186; 99285

== ENCOUNTER 2024-08-10 12:00 | Outpatient (CLI) | payer MEDICARE, SELFPAY ==
[2024-08-10 15:44] LABS: Microscopic, Urine URINE MICROSCOPIC (MICROSCOPIC)
[2024-08-10 16:22] LABS: Appearance,Urine CLEAR (Clear); Blood, Urine TRACE-I (Negative); Color,Urine YELLOW (Yellow); Glucose,Urine (UA) Negative (Negative); Ketones,Urine Negative (Negative); Leukocyte Esterase,Urine 1+ (Negative); Nitrate,Urine POSITIVE (Negative); Protein,Urine 1+ (Negative); Specific Gravity, Urine >= 1.030 (1.005-1.030); Urobilinogen,Urine 0.2 EU/dl (0.2)
[2024-08-10 16:38] LABS: Bilirubin,Urine 1+ (Negative)
[2024-08-10 16:39] LABS: Bacteria,Urine 1+ /lpf; RBC,Urine Occasional #/hpf (0-3); Squamous Epithelial Cell,Urine Occasional #/hpf (0-5)
== END 2024-08-10 23:59 | disposition home or self-care (01) ==
LOC: LAB.DROPOF 08-11 09:13
PROVIDERS: PCP Urology; Visit Provider Urology
DX: N39.0 Urinary tract infection, site not specified (principal); R33.9 Retention of urine, unspecified
CPT/HCPCS: 81001; 87086

== ENCOUNTER 2024-08-24 15:17 | Outpatient (CLI) | payer MEDICARE, SELFPAY ==
[2024-08-24 14:58] LABS: Microscopic, Urine URINE MICROSCOPIC (MICROSCOPIC)
[2024-08-24 15:20] LABS: Appearance,Urine CLOUDY (Clear); Blood, Urine 2+ (Negative); Color,Urine YELLOW (Yellow); Glucose,Urine (UA) Negative (Negative); Ketones,Urine Negative (Negative); Leukocyte Esterase,Urine 2+ (Negative); Nitrate,Urine POSITIVE (Negative); Protein,Urine 1+ (Negative); Specific Gravity, Urine 1.025 (1.005-1.030); Urobilinogen,Urine 0.2 EU/dl (0.2)
[2024-08-24 15:43] LABS: Bilirubin,Urine 1+ (Negative)
[2024-08-24 16:09] LABS: Bacteria,Urine 3+ /lpf
[2024-08-24 16:10] LABS: Yeast,Urine 1+ /lpf
== END 2024-08-24 23:59 | disposition home or self-care (01) ==
LOC: LAB.DROPOF 15:18
PROVIDERS: PCP Urology; Visit Provider Urology
DX: N39.0 Urinary tract infection, site not specified (principal); R31.0 Gross hematuria; N40.1 Benign prostatic hyperplasia with lower urinary tract symptoms; R33.9 Retention of urine, unspecified
CPT/HCPCS: 81001; 87086; 87088

== ENCOUNTER 2024-09-16 13:32 | Emergency (ER) | payer MEDICARE, SELFPAY ==
[2024-09-16 13:32] VITALS: BP 117/77; PULSE 92; RESP 20; TEMP 36.9; O2SAT 98; BMI 21.2
--- NOTE | 2024-09-16 13:38 | ECG_ITS ---
APPROVED REPORT Exam: Resting ECG HR:97 bpm ECG Measurements Heart Rate 97 AXES [place] 119 P 81 QRSd 80 QRS 92 QT 336 T 74 QTc 390 Conclusion SINUS RHYTHM WITH SHORT [place] INTERVAL POSSIBLE RIGHT ATRIAL ENLARGEMENT [0.25mV P-WAVE] POSSIBLE LEFT ATRIAL ENLARGEMENT [-0.1mV P-WAVE IN V1/V2] BORDERLINE RIGHT AXIS DEVIATION [QRS AXIS > 90] BORDERLINE ECG UNCONFIRMED REPORT Electronically signed by : SALENA MUNROE, 09/17/2024 06:50:32
--- NOTE | 2024-09-16 13:41 | XR_ITS ---
PROCEDURE INFORMATION: Exam: XR Chest Exam date and time: 09/16/2024 1:41 PM Age: 68 years old Clinical indication: Shortness of breath; Additional info: SOA TECHNIQUE: Imaging protocol: Radiologic exam of the chest. Views: 2 views. COMPARISON: CT ABDOMEN PELVIS W CON 06/15/2024 11:04 PM FINDINGS: Lungs: Subtle nodular density in the left mid lung and left lung base laterally. Lungs are well aerated without a focal area of consolidation. Pleural spaces: Unremarkable. No pleural effusion. No pneumothorax. Heart/Mediastinum: Unremarkable. No cardiomegaly. Bones/joints: Unremarkable. IMPRESSION: 1. Subtle nodular density in the left mid lung and left lung base laterally. Possibly granulomas given the density. Consider correlation with CT chest. 2. Lungs are well aerated without a focal area of consolidation.
[2024-09-16] MEDS: IPRATROPIUM/ALBUTEROL 3 ML NEB IH (13:45)
[2024-09-16] MEDS: DEXAMETHASONE 4MG/ML 1ML VIAL 10 MG IV (13:49)
--- NOTE | 2024-09-16 14:07 | ED_ITS ---
<Statement entered by Adriana Wolfe DO - 09/17/24 00:58> I was consulted by the REGINALD, and we discussed the complexity of the problems being addressed. I approved the treatment and management plan for this patient's care in the emergency department, thus performing a substantive portion of the medical decision making. Adriana Wolfe DO Discharge Plan Disposition Patient Disposition: Home, Self-Care Condition: Good Prescriptions Prescriptions: No Action tamsulosin [Flomax] 0.4 mg capsule 0.4 mg PO DAILY Qty: 30 3RF ergocalciferol (vitamin D2) 1,250 mcg (50,000 unit) capsule 1,250 mcg PO WEEKLY carvedilol 3.125 mg tablet 3.125 mg PO BID Rx Instructions: must administer with a meal/food sertraline 50 mg tablet 50 mg PO DAILY Trelegy Ellipta 100-62.5-25 mcg blister with device 1 inh inhalation DAILY calcium carbonate-vitamin D3 500 mg-10 mcg (400 unit) tablet 1 tab PO BID atorvastatin [Lipitor] 40 mg tablet 40 mg PO HS acetaminophen 325 mg Tablet 650 mg PO Q4HP PRN (Reason: Fever Or Mild Pain (1-3)) Qty: 0 0RF docusate sodium 100 mg Capsule 100 mg PO BID Qty: 0 0RF melatonin 5 mg Tablet 10 mg PO HS Qty: 0 0RF nicotine 21 mg/24 hr Patch 24 Hour 21 mg transdermal DAILYP PRN (Reason: Nicotine Cravings) Qty: 0 0RF Referrals Follow up/Referrals: Provider,Referral, MD [Primary Care Provider] - See instructions Activity Restrictions/Add. Instructions Additional Instructions/Restrictions: As we discussed follow-up within 48 hours with your PCP for reevaluation and further investigation of the source of your subjective inability to breathe. Follow-up with your PCP for no improvement or worsening symptoms or return to the ER as needed. Clinical Impressions Clinical Impression: Dyspnea Qualifiers: Dyspnea type: unspecified Qualified Code(s): R06.00 - Dyspnea, unspecified Print Language Print Language: Armenian Discharge ED Provider: Adriana Wolfe HPI <SAWYER Carrizales - Last Filed: 09/16/24 16:12> General Chief Complaint: Shortness of Breath/Dyspnea Stated Complaint: SOA Time Seen by Provider: 09/16/24 14:06 Mode of Arrival: Ambulatory Source of Information: Patient and EMS Limitations: No Limitations Description of Symptoms (Recalled from ER Triage Doc. by RN): c/o soa for 2 years, states that he walked to the bathroom and increased soa History of Present Illness HPI narrative: Patient presents for evaluation of dyspnea. Patient states that he has had shortness of breath for 2 years however he came today because it is getting worse . Patient denies any acute event or significant increase. Patient is a smoker. He is not on home O2 currently. He denies chest pain fever chills hemoptysis hematochezia melena nausea vomiting diarrhea. Related Data Home Medications ?Medication ?Instructions ?Recorded ?Confirmed atorvastatin 40 mg tablet (Lipitor) 40 mg PO HS 06/11/24 08/24/24 calcium 500 mg (as 1 tab PO BID 06/11/24 08/24/24 carbonate)-vitamin D3 10 mcg (400 unit) tablet carvedilol 3.125 mg tablet 3.125 mg PO BID 06/11/24 08/24/24 ergocalciferol (vitamin D2) 1,250 1,250 mcg PO WEEKLY 06/11/24 08/24/24 mcg (50,000 unit) capsule fluticasone fur. 100 mcg-umeclid 1 inh inhalation DAILY 06/11/24 08/24/24 62.5 mcg-vilant 25 mcg inhalat.powder (Trelegy Ellipta) sertraline 50 mg tablet 50 mg PO DAILY 06/11/24 08/24/24 Previous Rx's ?Medication ?Instructions ?Recorded acetaminophen 325 mg tablet 650 mg (2 x 325 mg) PO Q4HP PRN 06/18/24 Fever Or Mild Pain (1-3) #0 tabs docusate sodium 100 mg capsule 100 mg PO BID #0 caps 06/18/24 melatonin 5 mg tablet 10 mg (2 x 5 mg) PO HS #0 tabs 06/18/24 nicotine 21 mg/24 hr daily 21 mg transdermal DAILYP PRN 06/18/24 transdermal patch Nicotine Cravings #0 ea tamsulosin 0.4 mg capsule (Flomax) 0.4 mg PO DAILY #30 caps 08/24/24 Allergies Allergy/AdvReac Type Severity Reaction Status Date / Time No Known Allergies Allergy Verified 08/24/24 08:25 [facility] <SAWYER Carrizales - Last Filed: 09/16/24 16:12> [facility] Disclaimer: The information contained in this section may have been updated after the patient was seen, as this information can be updated by other users. Medical History Unspecified mood [affective] disorder Peripheral vascular disease Atherosclerosis of aorta Acute UTI Acute urinary retention Villarreal catheter in place Surgical History Previous back surgery Social History Smoking Status: Current every day smoker alcohol intake: former current occupational status: unemployed Travel in the last 8 weeks: None Other Medical History Have you received the Flu Vaccine for this season: No Have you received the Pneumonia Vaccine: No <SAWYER Carrizales - Last Filed: 09/16/24 16:12> ROS Obtained: Yes All systems reviewed & no additional complaints except as documented Physical Exam <SAWYER Carrizales - Last Filed: 09/16/24 16:12> General General appearance: alert Respiratory Respiratory exam: Present normal lung sounds bilaterally; Absent respiratory distress, wheezes, stridor or accessory muscle use Cardiovascular Cardiovascular exam: Present regular rate Neurological Exam Neurological exam: Present alert and oriented X3 HEART Score <SAWYER Carrizales - Last Filed: 09/16/24 16:12> HEART Score HEART Score assessment performed?: Yes History (anamnesis): Slightly suspicious ECG: Normal Age: >65 years Risk factors: Atherosclerosis history Troponin: </= normal limit HEART Score: 4 <Maxx Calhoun MD - Last Filed: 09/17/24 07:46> HEART Score HEART Score: 4 Critical Care <SAWYER Carrizales - Last Filed: 09/16/24 16:12> Critical Care Time Critical Care Time: No Medical Decision Making <SAWYER Carrizales - Last Filed: 09/16/24 16:12> Medical Records Medical records reviewed: Yes I reviewed the patient's medical records. Aiden Inquiry Pt receiving controlled substance: No Vital Signs Vital Signs: 09/16/24 13:32 09/16/24 16:19 Temperature 98.5 F 98.5 F Temperature Source Oral Pulse Rate 92 H Pulse Rate [Left Radial] 92 H Respiratory Rate 20 20 Blood Pressure 125/76 Blood Pressure [Right Arm] 117/77 Blood Pressure Mean [Right Arm] 90 Blood Pressure Source [Right Arm] Automatic Cuff Blood Pressure Position [Right Arm] Sitting 02 Sat by Pulse Oximetry 98 Oxygen Delivery Method Room Air Room Air Lab Data Lab results reviewed: Yes I reviewed the patient's lab results. Labs: Lab Results 09/16/24 14:14: VBG pH 7.35, VBG pCO2 50.1, VBG pO2 29.4, VBG HCO3 26.7, VBG Total CO2 28.3 H, VBG O2 Saturation 55.1, VBG Base Excess 1.0, VBG Lactic Acid 2.1 H 09/16/24 14:15: WBC 8.7, RBC 5.33, Hgb 16.2, Hct 48.4, MCV 90.8, MCH 30.4, MCHC 33.5, RDW 13.8, Plt Count 171, MPV 8.0, Neut % (Auto) 84.4 H, Lymph % (Auto) 9.4 L, Cherry % (Auto) 4.9, Eos % (Auto) 0.8, Baso % (Auto) 0.4, Neut # (Auto) 7.3, Lymph # (Auto) 0.8, Cherry # (Auto) 0.4, Eos # (Auto) 0.1, Baso # (Auto) 0.0, Sodium 143, Potassium 4.1, Chloride 105, Carbon Dioxide 28, Anion Gap 14.1, BUN 16, Creatinine 0.80, Estimated Creat Clear 64, Estimated GFR 96, Est GFR ( Amer) 116, Glucose 99, Calcium 9.7, Total Bilirubin 0.9, AST 28, ALT 31, Alkaline Phosphatase 91, Troponin I < 0.01, Total Protein 7.6, Albumin 4.5, Globulin 3.1, Albumin/Globulin Ratio 1.5, HIV 1&2 Antibody Rapid Nonreactive 09/16/24 14:15 09/16/24 14:15 Response Orders (Tests/Meds): ED MEDICATIONS Discontinued Medications Generic Name Dose Route Start Last Admin Trade Name Freq PRN Reason Stop Dose Admin Albuterol/Ipratropium 3 ml 09/16/24 13:41 09/16/24 13:45 Ipratropium/Albuterol 3 Ml Neb IH 09/16/24 13:42 3 ml ONCE ONE Administration Dexamethasone Sodium Phosphate 10 mg 09/16/24 13:41 09/16/24 13:49 Dexamethasone 4mg/Ml 5ml Mdv IV 09/16/24 13:42 Not Given ONCE ONE Dexamethasone Sodium Phosphate 10 mg 09/16/24 13:45 09/16/24 13:49 Dexamethasone 4mg/Ml 1ml Vial IV 09/16/24 13:46 Not Given ONCE ONE Dexamethasone Sodium Phosphate 10 mg 09/16/24 13:47 09/16/24 13:49 Dexamethasone 4mg/Ml 1ml Vial IV 09/16/24 13:48 10 mg ONCE ONE Administration Sodium Chloride 10 ml 09/16/24 13:40 Sodium Chloride 0.9% 10ml Flush Syringe IV 10/16/24 13:39 NEEDED PRN Maintain IV Site ORDERS Category Date Time Status XR chest 2V Stat Exams 09/16/24 13:41 Completed Complete Blood Count Auto Diff Stat Lab 09/16/24 14:15 Completed Comprehensive Metabolic Panel Stat Lab 09/16/24 14:15 Completed HIV (1&2) Antibody Rapid Stat Lab 09/16/24 14:15 Completed Hep C Ab with Reflex to RNA Stat Lab 09/16/24 14:15 Received Troponin I Stat Lab 09/16/24 14:15 Completed VBG [Venous Blood Gas] Stat RT 09/16/24 14:14 Completed MDM Narrative Medical Decision Narrative: In summary patient is a 68-year-old male who presents to the emergency department for evaluation of dyspnea. Patient is hemodynamically stable with a blood pressure 117/77 pulse 92 respiratory rate is 20 O2 sats 98% on room air upon arrival, afebrile. Physical exam is remarkable for cachectic appearing unwell appearing chronically ill-appearing 68-year-old male who otherwise does not appear to be in acute distress. Breath sounds are clear and equal bilaterally to the bases without adventitious sounds. There is no increased work of breathing. There is no accessory muscle use. There is no abdominal tenderness bowel sounds are normal there is no dependent edema.. Differential diagnosis includes COPD exacerbation versus pneumonia etc. Initial workup will be conducted with hematologic labs VBG plain film chest x-ray twelve-lead EKG. Initial interventions include DuoNeb and Decadron. Initial workup reviewed by me shows that he has no acute abnormalities including a completely normal VBG normal CBC and white count no acute findings via my informal interpretation of his plain film chest x-ray.. Upon repeat evaluation patient subjectively says that he still cannot breathe despite satting 98% on room air breathing 16 times a minute. Given this we have essentially ruled out any acute serious or life- threatening conditions or problems and while patient has subjective complaints he has no objective data to support that and is appropriate for discharge with close follow-up with his PCP. I offered a referral to pulmonology however patient declined. <Maxx Calhoun MD - Last Filed: 09/17/24 07:46> Vital Signs Vital Signs: 09/16/24 13:32 09/16/24 16:19 Temperature 98.5 F 98.5 F Temperature Source Oral Pulse Rate 92 H Pulse Rate [Left Radial] 92 H Respiratory Rate 20 20 Blood Pressure 125/76 Blood Pressure [Right Arm] 117/77 Blood Pressure Mean [Right Arm] 90 Blood Pressure Source [Right Arm] Automatic Cuff Blood Pressure Position [Right Arm] Sitting 02 Sat by Pulse Oximetry 98 Oxygen Delivery Method Room Air Room Air Lab Data Labs: Lab Results 09/16/24 14:14: VBG pH 7.35, VBG pCO2 50.1, VBG pO2 29.4, VBG HCO3 26.7, VBG Total CO2 28.3 H, VBG O2 Saturation 55.1, VBG Base Excess 1.0, VBG Lactic Acid 2.1 H 09/16/24 14:15: WBC 8.7, RBC 5.33, Hgb 16.2, Hct 48.4, MCV 90.8, MCH 30.4, MCHC 33.5, RDW 13.8, Plt Count 171, MPV 8.0, Neut % (Auto) 84.4 H, Lymph % (Auto) 9.4 L, Cherry % (Auto) 4.9, Eos % (Auto) 0.8, Baso % (Auto) 0.4, Neut # (Auto) 7.3, Lymph # (Auto) 0.8, Cherry # (Auto) 0.4, Eos # (Auto) 0.1, Baso # (Auto) 0.0, Sodium 143, Potassium 4.1, Chloride 105, Carbon Dioxide 28, Anion Gap 14.1, BUN 16, Creatinine 0.80, Estimated Creat Clear 64, Estimated GFR 96, Est GFR ( Amer) 116, Glucose 99, Calcium 9.7, Total Bilirubin 0.9, AST 28, ALT 31, Alkaline Phosphatase 91, Troponin I < 0.01, Total Protein 7.6, Albumin 4.5, Globulin 3.1, Albumin/Globulin Ratio 1.5, HIV 1&2 Antibody Rapid Nonreactive Response Orders (Tests/Meds): ED MEDICATIONS Discontinued Medications Generic Name Dose Route Start Last Admin Trade Name Freq PRN Reason Stop Dose Admin Albuterol/Ipratropium 3 ml 09/16/24 13:41 09/16/24 13:45 Ipratropium/Albuterol 3 Ml Neb IH 09/16/24 13:42 3 ml ONCE ONE Administration Dexamethasone Sodium Phosphate 10 mg 09/16/24 13:41 09/16/24 13:49 Dexamethasone 4mg/Ml 5ml Mdv IV 09/16/24 13:42 Not Given ONCE ONE Dexamethasone Sodium Phosphate 10 mg 09/16/24 13:45 09/16/24 13:49 Dexamethasone 4mg/Ml 1ml Vial IV 09/16/24 13:46 Not Given ONCE ONE Dexamethasone Sodium Phosphate 10 mg 09/16/24 13:47 09/16/24 13:49 Dexamethasone 4mg/Ml 1ml Vial IV 09/16/24 13:48 10 mg ONCE ONE Administration Sodium Chloride 10 ml 09/16/24 13:40 Sodium Chloride 0.9% 10ml Flush Syringe IV 10/16/24 13:39 NEEDED PRN Maintain IV Site ORDERS Category Date Time Status XR chest 2V Stat Exams 09/16/24 13:41 Completed Complete Blood Count Auto Diff Stat Lab 09/16/24 14:15 Completed Comprehensive Metabolic Panel Stat Lab 09/16/24 14:15 Completed HIV (1&2) Antibody Rapid Stat Lab 09/16/24 14:15 Completed Hep C Ab with Reflex to RNA Stat Lab 09/16/24 14:15 Received Troponin I Stat Lab 09/16/24 14:15 Completed VBG [Venous Blood Gas] Stat RT 09/16/24 14:14 Completed MDM Narrative Medical Decision Narrative: In summary patient is a 68-year-old male who presents to the emergency department for evaluation of dyspnea. Patient is hemodynamically stable with a blood pressure 117/77 pulse 92 respiratory rate is 20 O2 sats 98% on room air upon arrival, afebrile. Physical exam is remarkable for cachectic appearing unwell appearing chronically ill-appearing 68-year-old male who otherwise does not appear to be in acute distress. Breath sounds are clear and equal bilaterally to the bases without adventitious sounds. There is no increased work of breathing. There is no accessory muscle use. There is no abdominal tenderness bowel sounds are normal there is no dependent edema.. Differential diagnosis includes COPD exacerbation versus pneumonia etc. Initial workup will be conducted with hematologic labs VBG plain film chest x-ray twelve-lead EKG. Initial interventions include DuoNeb and Decadron. Initial workup reviewed by me shows that he has no acute abnormalities including a completely normal VBG normal CBC and white count no acute findings via my informal interpretation of his plain film chest x-ray.. Upon repeat evaluation patient subjectively says that he still cannot breathe despite satting 98% on room air breathing 16 times a minute. Given this we have essentially ruled out any acute serious or life- threatening conditions or problems and while patient has subjective complaints he has no objective data to support that and is appropriate for discharge with close follow-up with his PCP. I offered a referral to pulmonology however patient declined. I was consulted by the REGINALD, and we discussed the complexity of the problems being addressed. I approved the treatment and management plan for this patient's care in the Emergency Department, thus performing a substantive portion of the medical decision making. Maxx Calhoun MD
[2024-09-16 14:25] LABS: Basophils % 0.4 % (0.1-2.0); Eosinophils # 0.1 K/mm3 (0.0-0.4); Eosinophils % 0.8 % (0.1-12.0); Hematocrit 48.4 % (42.0-52.0); Hemoglobin 16.2 g/dL (14.1-18.0); Lymphocytes # 0.8 K/mm3 (0.7-4.5); Lymphocytes % 9.4 % (10-50); Mean Corpuscular HGB Conc 33.5 g/dL (31.8-35.4); Mean Corpuscular Hemoglobin 30.4 pg (27.0-31.2); Mean Corpuscular Volume 90.8 fl (80-94); Monocytes # 0.4 K/mm3 (0.1-1.0); Monocytes % 4.9 % (1.7-9.3); Neutrophils # 7.3 K/mm3 (1.8-7.8); Neutrophils % 84.4 % (37.0-80.0); Platelet Count 171 K/mm3 (142-424); Red Blood Count 5.33 M/mm3 (4.60-6.20); Red Cell Distribution Width 13.8 % (11.5-17.5); White Blood Count 8.7 K/mm3 (4.8-10.8)
[2024-09-16 14:31] LABS: VBG HCO3 26.7 mmol/L (23-30); VBG Oxygen Saturation 55.1 % (50-70); VBG PCO2 50.1 mmol/L (35-51); VBG PH 7.35 mmol/L (7.31-7.41); VBG PO2 29.4 mmol/L (28-40); VBG Total CO2 28.3 mmol/L (23-27)
[2024-09-16 14:33] LABS: Lactate Venous 2.1 mmol/L (0.4-2.0)
[2024-09-16 14:45] LABS: Alanine Aminotransferase 31 U/L (12-78); Albumin Level 4.5 g/dl (3.5-5.0); Albumin/Globulin Ratio 1.5 (1.1-1.8); Alkaline Phosphatase 91 U/L (38-126); Anion Gap 14.1 mEq/L (5-15); Aspartate Amino Transferase 28 U/L (17-59); Bilirubin,Total 0.9 mg/dl (0.2-1.3); Blood Urea Nitrogen 16 mg/dl (9-20); Calcium 9.7 mg/dl (8.4-10.2); Carbon Dioxide 28 mmol/L (22.0-30.0); Chloride 105 mmol/L (98-107); Creatinine Clearance Estimated 64 mL/min (50-200); Estimated Glomerular Filt Rate 96 ml/min (>60); GFR (African American) 116 ML/MIN (>60); Globulin 3.1 g/dL (1.3-3.2); Glucose 99 mg/dl (74-100); Potassium 4.1 mmoL/L (3.5-5.1); Sodium 143 mmol/L (136-145); Total Protein,Serum 7.6 g/dl (6.3-8.2)
[2024-09-16 14:59] LABS: Troponin I < 0.01 ng/ml (0.00-0.034)
[2024-09-16 15:55] LABS: HIV (1&2) Antibody Rapid NONREACTIVE (NONREACTIVE)
[2024-09-16 16:19] VITALS: BP 125/76; PULSE 92; RESP 20; TEMP 36.9; O2SAT 97
[2024-09-16 18:34] LABS: Reflex Lactic Add Lactic Reflex
[2024-09-17 11:15] LABS: HCV Ab Non Reactive (Non Reactive)
== END 2024-09-16 16:20 | disposition home or self-care (01) ==
PROVIDERS: Emergency Medicine; Physician Assistant; Emergency Provider Emergency Medicine
DX: R06.00 Dyspnea, unspecified (principal); R06.02 Shortness of breath
CPT/HCPCS: 71046; 80053; 82803; 84484; 85025; 86803; 87389; 93005; 96374; 99284; J1100; J7620

== ENCOUNTER 2025-02-09 14:23 | Emergency (ER) | payer MEDICARE, MEDICAID, SELFPAY ==
[2025-02-09] VITALS (17 sets, daily range): BP systolic 122–152; BP diastolic 70–120; PULSE 68–127; RESP 14–32; TEMP 36.6–37; O2SAT 93–99; BMI 19.8
--- NOTE | 2025-02-09 14:29 | CT_ITS ---
FINAL REPORT TECHNIQUE: Thin section axial images were obtained from skull base to vertex without contrast. Coronal reconstruction images were obtained from the axial data. Exam was performed using dose reduction techniques such as automated exposure control, adjustment of the mA and kV according to patient size, and use of iterative reconstruction technique. CLINICAL HISTORY: new onset seizure FINDINGS: There is global atrophy. 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 No mass effect or midline shift. No intracranial hemorrhage. No hydrocephalus. Periventricular low density is likely related to changes of chronic small vessel ischemia. The basilar cisterns are preserved. The posterior fossa is without acute abnormality. The soft tissues are without acute abnormality. No acute osseous abnormality is identified. IMPRESSION: No acute intracranial abnormality. Atrophy and chronic findings as above. Reviewed, Interpreted and Dictated by Courtney Parks MD Transcribed by Patricia Perez Authenticated and [facility]
--- NOTE | 2025-02-09 14:29 | CT_ITS ---
FINAL REPORT CLINICAL HISTORY: new onset seizure FINDINGS: CTA NECK Thin section axial CT with contrast with multiplanar reconstruction NASCET criteria and technique was utilized during interpretation. Aortic arch: Arch shows no significant narrowing. Great vessel origins are widely patent . Right carotid: Calcified plaque in the right carotid bulb with approximately 20% stenosis of the right ICA. Remaining ICA patent to the skull base. Left carotid: Left CCA is patent with calcified plaque at the bulb and 30-40% stenosis. Distal left ICA is patent to the skull base. Vertebrals: No significant stenosis is present . Subcutaneous hypodense mass is seen in the posterior neck at the level of the C7 spinous process likely representing a sebaceous cyst. IMPRESSION: No significant stenosis or occlusion. Reviewed, Interpreted and Dictated by Courtney Parks MD Transcribed by Patricia Perez Authenticated and . [facility]
--- NOTE | 2025-02-09 14:29 | CT_ITS ---
FINAL REPORT TECHNIQUE: Thin section axial images are obtained through the brain after intravenous contrast injection. Multiplanar reconstructions were obtained from the axial data. Exam was performed using dose reduction techniques such as automated exposure control, adjustment of the mA and kV according to patient size, and use of iterative reconstruction technique. CLINICAL HISTORY: new onset seizure FINDINGS: The intracerebral portions of the carotid arteries are patent. The anterior and middle cerebral arteries are patent. The posterior cerebral arteries arise from the basilar artery. They are patent. Telida of [place] is intact. The basilar artery is patent. The vertebral arteries are patent. There is no significant stenosis, aneurysm, or AVM. IMPRESSION: Unremarkable CT angiogram of the intracerebral vasculature. Reviewed, Interpreted and Dictated by Courtney Parks MD Transcribed by Patricia Perez Authenticated and [facility]
--- NOTE | 2025-02-09 14:30 | XR_ITS ---
FINAL REPORT TECHNIQUE: Single view chest CLINICAL HISTORY: AMS seizure, new onset FINDINGS: A single view of the chest was obtained. The heart is normal in size. There is a curvilinear radiodensity over the right lung apex of uncertain etiology which may represent artifact. Small nodular densities are seen at the left lung apex which may be calcified. There is underlying emphysema. The lungs are otherwise clear. IMPRESSION: No acute cardiopulmonary process. Reviewed, Interpreted and Dictated by Courtney Parks MD Transcribed by Patricia Perez Authenticated and [facility]
--- NOTE | 2025-02-09 14:40 | CT_ITS ---
FINAL REPORT TECHNIQUE: Thin section axial images were obtained through the cervical spine without contrast. Multiplanar reconstruction images were obtained from the axial data. Exam was performed using dose reduction techniques. CLINICAL HISTORY: seizure like activity FINDINGS: There is no acute fracture or acute malalignment of the cervical spine. There is no evidence of unilateral or bilateral facet lock. There is multilevel degenerative disc disease, most pronounced at C5-6. Vertebral body height is preserved. No acute paraspinal abnormality is identified. Emphysema is seen at the lung apices as well as incompletely imaged nodular opacities at the left apex. IMPRESSION: No acute osseous abnormality of the cervical spine. Reviewed, Interpreted and Dictated by Courtney Parks MD Transcribed by Patricia Perez Authenticated and [facility]
[2025-02-09 14:43] LABS: Basophils % 0.4 % (0.1-2.0); Eosinophils # 0.1 K/mm3 (0.0-0.4); Eosinophils % 0.9 % (0.1-12.0); Hematocrit 47.3 % (42.0-52.0); Lymphocytes # 0.9 K/mm3 (0.7-4.5); Lymphocytes % 11.9 % (10-50); Mean Corpuscular HGB Conc 33.8 g/dL (31.8-35.4); Mean Corpuscular Hemoglobin 30.3 pg (27.0-31.2); Mean Corpuscular Volume 89.6 fl (80-94); Mean Platelet Volume 10.6 fl (7.4-10.4); Monocytes # 0.5 K/mm3 (0.1-1.0); Monocytes % 6.2 % (1.7-9.3); Neutrophils # 6.1 K/mm3 (1.8-7.8); Neutrophils % 80.1 % (37.0-80.0); Platelet Count 156 K/mm3 (142-424); Red Blood Count 5.28 M/mm3 (4.60-6.20); Red Cell Distribution Width 12.7 % (11.5-17.5); White Blood Count 7.6 K/mm3 (4.8-10.8)
--- NOTE | 2025-02-09 14:46 | ECG_ITS ---
APPROVED REPORT Exam: Resting ECG HR:114 bpm ECG Measurements Heart Rate 114 AXES OR 328 P 91 QRSd 87 QRS 88 QT 323 T 90 QTc 391 Conclusion Sinus tachycardia Intermittent failure to sense pacemaker Electronically signed by : TRISTAN COLLADO, 02/10/2025 07:35:15
[2025-02-09 14:48] LABS: VBG Base Excess -6.2 mmol/L (-2.4-2.3); VBG HCO3 20.4 mmol/L (23-30); VBG Oxygen Saturation 70.7 % (50-70); VBG PCO2 43.4 mmol/L (35-51); VBG PH 7.29 mmol/L (7.31-7.41); VBG PO2 39.2 mmol/L (28-40); VBG Total CO2 21.7 mmol/L (23-27)
[2025-02-09 14:51] LABS: Albumin Level 4.5 g/dl (3.5-5.0); Chloride 104 mmol/L (98-107)
[2025-02-09 14:52] LABS: Lactate Venous 7.1 mmol/L (0.4-2.0)
[2025-02-09 14:52] LABS: Potassium 3.8 mmoL/L (3.5-5.1); Sodium 138 mmol/L (136-145)
[2025-02-09 14:54] LABS: Activated Partial Thrombo Time 25.9 seconds (22.8-30.6); Alanine Aminotransferase 43 U/L (12-78); Alkaline Phosphatase 72 U/L (38-126); Anion Gap 12.8 mEq/L (5-15); Aspartate Amino Transferase 44 U/L (17-59); Bilirubin,Total 0.4 mg/dl (0.2-1.3); Blood Urea Nitrogen 14 mg/dl (9-20); Carbon Dioxide 25 mmol/L (22.0-30.0); Creatinine Clearance Estimated 58 mL/min (50-200); Estimated Glomerular Filt Rate 74 ml/min (>60); GFR (African American) 90 ML/MIN (>60); INR 0.93 (0.9-1.1); Prothrombin Time 10.5 seconds (10.1-12.5)
[2025-02-09 14:55] LABS: Albumin/Globulin Ratio 1.7 (1.1-1.8); Calcium 9.3 mg/dl (8.4-10.2); Globulin 2.6 g/dL (1.3-3.2); Glucose 123 mg/dl (74-100); Magnesium 2.2 mg/dl (1.6-2.3); Total Protein,Serum 7.1 g/dl (6.3-8.2)
--- NOTE | 2025-02-09 14:55 | ED_ITS ---
Discharge Plan Disposition Patient Disposition: Home, Self-Care Condition: Good Activity Restrictions/Add. Instructions Additional Instructions/Restrictions: You were evaluated in the emergency department today. As we discussed, it is very important that you follow-up with your primary care provider over the next 24 to 48 hours. We have provided you with a list of PCPs accepting patients if you need it. You have gabby in your scalp that will need to be removed over the next 10 to 14 days. We recommended starting seizure medication since you have had a seizure before, however since you did not want to start this, this was not initiated at this time. Do not drive a car, operate machinery, swim, climb ladders, or do any other activity that could be dangerous to you or others until your neurologist or primary care provider say it is safe to do so. Be sure that anyone treating you for any health problem knows that you have had a seizure. Identify and avoid things that may make you more likely to have a seizure, such as lack of sleep, alcohol or drug use, stress, or not eating. If possible, take a shower instead of a bath. Having a seizure while in a bath can increase the risk of drowning. Recommendations for bystanders during seizure: clear the area to prevent injury; position person on a flat, carpeted surface; do not try to restrain the person; turn the person on his/her side if he/she starts to vomit; keep track of the time the seizure started, how long it lasted, and describe body movements; stay with the person until they regain consciousness; call 911 for seizure lasting longer than 5 minutes, multiple seizures, or if person does not start to wake up after seizure stops; expect confusion and drowsiness after seizure Please follow-up closely with neurology as well as with your primary care provider. If you do not have a neurologist, your primary care provider can help refer you to one. Return to the emergency department for new or worsening symptoms. Clinical Impressions Clinical Impression: Seizure, Laceration of scalp Instructions Patient Instructions: DI for Seizure Disorder -- Adult, DI for Laceration Repair -- Roby, DI for Seizure (Not Epilepsy/Seizure Disorder) Print Language Print Language: Vietnamese Discharge ED Provider: Adriana Wolfe General Adult HPI <Maxx Calhoun MD - Last Filed: 02/09/25 15:00> General Chief complaint: Seizure Stated complaint: seizure Time Seen by Provider: 02/09/25 14:29 Mode of Arrival: EMS Source of Information: Patient, EMS and Medical Record Description of Symptoms (Recalled from ER Triage Doc. by RN): c/o seizure, per EMS they were [place] to the [place] for seizure, reports from time of call to their arrival, it is approx 3 minutes, pt was postictal upon arrival. Pt denies hx of seizures. laceration noted to back of head History of Present Illness HPI narrative: Please note that above description of symptoms, in this electronic medical record under categorization of recalled from ER triage doctor by RN are reflective of an initial nursing assessment, however, is not reflective of my full history and physical exam that was personally taken and clarified. Consequentially, this preceding description of symptoms, which may include the patient's categorized chief complaint in the EMR, do not reflect my personal clinical impression, and the ultimate description of history of present illness and patient stated complaints should be deferred to this section of the note. Unless stated otherwise or congruent with this section of the note, additional signs, symptoms, or incongruence should be interpreted as inaccurate with my clinical impression. Related Data Allergies Allergy/AdvReac Type Severity Reaction Status Date / Time No Known Allergies Allergy Verified 11/05/24 13:14 [facility] <Maxx Calhoun MD - Last Filed: 02/09/25 15:00> [facility] Disclaimer: The information contained in this section may have been updated after the patient was seen, as this information can be updated by other users. Medical History History of COPD Unspecified mood [affective] disorder Peripheral vascular disease Atherosclerosis of aorta Acute UTI Acute urinary retention Villarreal catheter in place Surgical History Previous back surgery Family History Other No significant family history Social History Smoking Status: Current every day smoker alcohol intake: former current occupational status: unemployed Travel in the last 8 weeks: None Have you lived/traveled outside [place] in past 30 days?: No Contact w/someone who lives/traveled outside US past 30 days?: No Exposure to someone with infectious disease in past 14 days?: No Do you have a fever (greater than 100.4 F or 38 C)?: No Have you tested positive for COVID-19: No Exposed to someone with COVID-19 in past 14 days?: No Do you have a sore throat?: No Do you have a cough?: No Do you have any weakness?: No Do you have any diarrhea?: No Are you experiencing any unusual bleeding?: No Do you have any muscle aches/pain?: No Do you have any abdominal pain?: No Are you experiencing loss of taste or smell?: No Other Medical History Have you received the Flu Vaccine for this season: No Have you received the Pneumonia Vaccine: Yes <Maxx Calhoun MD - Last Filed: 02/09/25 15:00> ROS Obtained: Yes All systems reviewed & no additional complaints except as documented Physical Exam <Maxx Calhoun MD - Last Filed: 02/09/25 15:00> General General appearance: alert and in no apparent distress Head Head exam: normocephalic and other (Hematoma on the occiput) Eye Eye exam: Present normal appearance, PERRL and EOMI Neck Neck exam: Present normal inspection, full ROM and trachea midline Respiratory Respiratory exam: Absent respiratory distress, wheezes, stridor, accessory muscle use or prolonged expiratory phase Cardiovascular Cardiovascular exam: Present other (Pulses equal symmetric in upper and lower extremities) Abdominal Exam Abdominal exam: Present soft; Absent distention, tenderness, guarding, rebound, rigidity or pulsatile mass Extremities Exam Extremities exam: Absent edema Neurological Exam Neurological exam: Present alert, oriented X3 and CN II-XII intact; Absent motor sensory deficit Skin Skin exam: Present warm and dry; Absent diaphoresis or erythema Medical Decision Making <Maxx Calhoun MD - Last Filed: 02/09/25 15:00> Medical Records Medical records reviewed: Yes I reviewed the patient's medical records. Screening: Per USPSTF and CDC recommendations, given the prevalence of disease in our region, it is our hospital?s policy to screen for HIV and viral Hepatitis for all patients aged 18 and over and those with ongoing risk factors. Aiden Inquiry Pt receiving controlled substance: No Aiden was queried for this patient: No Vital Signs: 02/09/25 14:25 02/09/25 14:28 02/09/25 14:30 Temperature Temperature Source Pulse Rate 118 H 127 H 116 H Pulse Rate [Left Radial] Respiratory Rate 29 H 22 32 H Blood Pressure 141/81 H 141/81 H 132/77 Blood Pressure [Right Arm] Blood Pressure Mean Blood Pressure Mean [Right Arm] 02 Sat by Pulse Oximetry 96 95 94 L Oxygen Delivery Method 02/09/25 14:44 02/09/25 15:00 02/09/25 16:00 Temperature 98.6 F Temperature Source Oral Pulse Rate 111 H 94 H Pulse Rate [Left Radial] 118 H Respiratory Rate 29 H Blood Pressure 122/70 128/71 Blood Pressure [Right Arm] 141/81 H Blood Pressure Mean 87 91 Blood Pressure Mean [Right Arm] 101 02 Sat by Pulse Oximetry 96 94 L 95 Oxygen Delivery Method Room Air Room Air Room Air 02/09/25 16:42 02/09/25 17:01 02/09/25 17:16 Temperature Temperature Source Pulse Rate 96 H 93 H 93 H Pulse Rate [Left Radial] Respiratory Rate 14 Blood Pressure 144/89 H 136/81 152/79 H Blood Pressure [Right Arm] Blood Pressure Mean Blood Pressure Mean [Right Arm] 02 Sat by Pulse Oximetry 94 L 97 97 Oxygen Delivery Method Lab Data Lab Results 02/09/25 14:33: WBC 7.6, RBC 5.28, Hgb 16.0, Hct 47.3, MCV 89.6, MCH 30.3, MCHC 33.8, RDW 12.7, Plt Count 156, MPV 10.6 H, Neut % (Auto) 80.1 H, Lymph % (Auto) 11.9, Swain % (Auto) 6.2, Eos % (Auto) 0.9, Baso % (Auto) 0.4, Neut # (Auto) 6.1, Lymph # (Auto) 0.9, Swain # (Auto) 0.5, Eos # (Auto) 0.1, Baso # (Auto) 0.0, PT 10.5, INR 0.93, APTT 25.9, Sodium 138, Potassium 3.8, Chloride 104, Carbon Dioxide 25, Anion Gap 12.8, BUN 14, Creatinine 1.00, Estimated Creat Clear 58, Estimated GFR 74, Est GFR ( Amer) 90, Glucose 123 H, Lactate 6.5 H, Calcium 9.3, Magnesium 2.2, Total Bilirubin 0.4, AST 44, ALT 43, Alkaline Phosphatase 72, Troponin I < 0.01, NT-Pro-B Natriuret Pep 173 H, Total Protein 7.1, Albumin 4.5, Globulin 2.6, Albumin/Globulin Ratio 1.7, TSH 4.47, Thyroxine (T4) 7.9, Salicylates < 1.0 L, Plasma/Serum Alcohol < 10 02/09/25 14:43: VBG pH 7.29 L, VBG pCO2 43.4, VBG pO2 39.2, VBG HCO3 20.4 L, VBG Total CO2 21.7 L, VBG O2 Saturation 70.7 H, VBG Base Excess -6.2 L, VBG Lactic Acid 7.1 H 02/09/25 14:33 02/09/25 14:33 Orders (Tests/Meds): ED MEDICATIONS Discontinued Medications Generic Name Dose Route Start Last Admin Trade Name Freq PRN Reason Stop Dose Admin Lactated Ringer's 1,770 mls @ 885 mls/hr 02/09/25 14:59 02/09/25 16:48 Lactated Ringer's 1000 Ml Bag 30 ml/kg infuse over 2 hr (1770 ml) 02/09/25 16:58 885 mls/hr IV Administration .Q2H ONE Iopamidol 80 ml 02/09/25 15:46 02/09/25 15:46 Iopamidol-370 (76%);100ml Bottle IV 02/09/25 15:47 80 ml ONCE ONE Administration Sodium Chloride 10 ml 02/09/25 15:46 02/09/25 15:46 Sodium Chloride 0.9% 10ml Syr (Rad Only) IV 02/09/25 15:47 10 ml ONCE ONE Administration Sodium Chloride 50 ml 02/09/25 15:46 02/09/25 15:46 0.9 % Sodium Chloride 50 Ml Vial IV 02/09/25 15:47 50 ml ONCE ONE Administration ORDERS Category Date Time Status CT angio head Stat Cat Scan 02/09/25 14:[address] angio neck Stat Cat Scan 02/09/25 14:[address] cervical spine wo con Stat Cat Scan 02/09/25 14:[address] head/brain wo con Stat Cat Scan 02/09/25 14:29 Completed XR chest portable Stat Exams 02/09/25 14:30 Completed Complete Blood Count Auto Diff Stat Lab 02/09/25 14:33 Completed Comprehensive Metabolic Panel Stat Lab 02/09/25 14:33 Completed Drug Screen,Urine Stat Lab 02/09/25 14:29 Ordered Ethanol [Ethyl Alcohol] Stat Lab 02/09/25 14:33 Completed Lactic Acid Stat Lab 02/09/25 14:33 Completed Magnesium Stat Lab 02/09/25 14:33 Completed NT Pro Brain Natriuretic Pep. Stat Lab 02/09/25 14:33 Completed PT INR [Prothrombin Time INR] Stat Lab 02/09/25 14:33 Completed PTT [Activated Partial Thrombo Time] Stat Lab 02/09/25 14:33 Completed Salicylate Stat Lab 02/09/25 14:33 Completed T4 (Thyroxine) Stat Lab 02/09/25 14:33 Completed TSH [Thyroid Stimulating Hormone] Stat Lab 02/09/25 14:33 Completed Troponin I Q3H Lab 02/09/25 17:30 Ordered Troponin I Q3H Lab 02/09/25 20:30 Ordered Troponin I Stat Lab 02/09/25 14:33 Completed Urinalysis and Microscopic Stat Lab 02/09/25 14:30 Ordered Blood Culture Stat Micro 02/09/25 14:42 Received VBG [Venous Blood Gas] Stat RT 02/09/25 14:43 Completed Medical Decision Narrative: 69-year-old male presenting with new onset seizure activity. Patient was at the bank earlier, bystanders called EMS because patient had a seizure. By the time EMS got there they stated that it was self aborted. Patient was postictal. Glucose was in the 100s. Brought him here for further evaluation after placing in cervical collar. On arrival, patient disgruntled. Possibly postictal, following commands, but is only oriented to person. Pupils equal and reactive. He does have hematoma on the occiput. Currently states he has no complaints. He states that he does drink, does not member the last time he drank and thinks it was a couple of days ago. History obtained with patient and largely with EMS. On physical exam, patient has hematoma on his occiput with caked blood, also has cervical collar in place. Answering questions and following commands. Alert and oriented only to person. Lungs are clear, cardiac exam normal with no murmurs gallops or rubs. No lower extremity edema. No focal neurologic deficits. Differential includes new seizure disorder, alcohol withdrawal, intoxication, other withdrawal syndrome, intracranial hemorrhage, CVA, sepsis, less likely to be meningitis given no systemic signs or symptoms among others. Patient was given sepsis fluid bolus, labs were drawn. Images ordered. On independent interpretation of workup, nonactionable CBC. Patient's VBG with acute uncompensated metabolic acidosis with pH 7.29/bicarb low at 20/CO2 normal at 43 and lactate 7.1. Prior to remainder of labs and imaging, care handed off to oncoming physician. [employer] Sales[employer] disclaimer Much of this encounter note is an electronic hematology supervisor spoken language to printed text. Electronic hematology supervisor of the spoken language may permit errors. Although I have reviewed the note, some errors may still exist. <Adriana Wolfe, DO - Last Filed: 02/09/25 17:51> Vital Signs: 02/09/25 14:25 02/09/25 14:28 02/09/25 14:30 Temperature Temperature Source Pulse Rate 118 H 127 H 116 H Pulse Rate [Left Radial] Respiratory Rate 29 H 22 32 H Blood Pressure 141/81 H 141/81 H 132/77 Blood Pressure [Right Arm] Blood Pressure Mean Blood Pressure Mean [Right Arm] 02 Sat by Pulse Oximetry 96 95 94 L Oxygen Delivery Method 02/09/25 14:44 02/09/25 15:00 02/09/25 16:00 Temperature 98.6 F Temperature Source Oral Pulse Rate 111 H 94 H Pulse Rate [Left Radial] 118 H Respiratory Rate 29 H Blood Pressure 122/70 128/71 Blood Pressure [Right Arm] 141/81 H Blood Pressure Mean 87 91 Blood Pressure Mean [Right Arm] 101 02 Sat by Pulse Oximetry 96 94 L 95 Oxygen Delivery Method Room Air Room Air Room Air 02/09/25 16:42 02/09/25 17:01 02/09/25 17:16 Temperature Temperature Source Pulse Rate 96 H 93 H 93 H Pulse Rate [Left Radial] Respiratory Rate 14 Blood Pressure 144/89 H 136/81 152/79 H Blood Pressure [Right Arm] Blood Pressure Mean Blood Pressure Mean [Right Arm] 02 Sat by Pulse Oximetry 94 L 97 97 Oxygen Delivery Method Lab Data Lab Results 02/09/25 14:33: WBC 7.6, RBC 5.28, Hgb 16.0, Hct 47.3, MCV 89.6, MCH 30.3, MCHC 33.8, RDW 12.7, Plt Count 156, MPV 10.6 H, Neut % (Auto) 80.1 H, Lymph % (Auto) 11.9, Swain % (Auto) 6.2, Eos % (Auto) 0.9, Baso % (Auto) 0.4, Neut # (Auto) 6.1, Lymph # (Auto) 0.9, Swain # (Auto) 0.5, Eos # (Auto) 0.1, Baso # (Auto) 0.0, PT 10.5, INR 0.93, APTT 25.9, Sodium 138, Potassium 3.8, Chloride 104, Carbon Dioxide 25, Anion Gap 12.8, BUN 14, Creatinine 1.00, Estimated Creat Clear 58, Estimated GFR 74, Est GFR ( Amer) 90, Glucose 123 H, Lactate 6.5 H, Calcium 9.3, Magnesium 2.2, Total Bilirubin 0.4, AST 44, ALT 43, Alkaline Phosphatase 72, Troponin I < 0.01, NT-Pro-B Natriuret Pep 173 H, Total Protein 7.1, Albumin 4.5, Globulin 2.6, Albumin/Globulin Ratio 1.7, TSH 4.47, Thyroxine (T4) 7.9, Salicylates < 1.0 L, Plasma/Serum Alcohol < 10 02/09/25 14:43: VBG pH 7.29 L, VBG pCO2 43.4, VBG pO2 39.2, VBG HCO3 20.4 L, VBG Total CO2 21.7 L, VBG O2 Saturation 70.7 H, VBG Base Excess -6.2 L, VBG Lactic Acid 7.1 H Orders (Tests/Meds): ED MEDICATIONS Discontinued Medications Generic Name Dose Route Start Last Admin Trade Name Freq PRN Reason Stop Dose Admin Lactated Ringer's 1,770 mls @ 885 mls/hr 02/09/25 14:59 02/09/25 16:48 Lactated Ringer's 1000 Ml Bag 30 ml/kg infuse over 2 hr (1770 ml) 02/09/25 16:58 885 mls/hr IV Administration .Q2H ONE Iopamidol 80 ml 02/09/25 15:46 02/09/25 15:46 Iopamidol-370 (76%);100ml Bottle IV 02/09/25 15:47 80 ml ONCE ONE Administration Sodium Chloride 10 ml 02/09/25 15:46 02/09/25 15:46 Sodium Chloride 0.9% 10ml Syr (Rad Only) IV 02/09/25 15:47 10 ml ONCE ONE Administration Sodium Chloride 50 ml 02/09/25 15:46 02/09/25 15:46 0.9 % Sodium Chloride 50 Ml Vial IV 02/09/25 15:47 50 ml ONCE ONE Administration ORDERS Category Date Time Status CT angio head Stat Cat Scan 02/09/25 14:[address] angio neck Stat Cat Scan 02/09/25 14:[address] cervical spine wo con Stat Cat Scan 02/09/25 14:[address] head/brain wo con Stat Cat Scan 02/09/25 14:29 Completed XR chest portable Stat Exams 02/09/25 14:30 Completed Complete Blood Count Auto Diff Stat Lab 02/09/25 14:33 Completed Comprehensive Metabolic Panel Stat Lab 02/09/25 14:33 Completed Drug Screen,Urine Stat Lab 02/09/25 14:29 Ordered Ethanol [Ethyl Alcohol] Stat Lab 02/09/25 14:33 Completed Lactic Acid Stat Lab 02/09/25 14:33 Completed Magnesium Stat Lab 02/09/25 14:33 Completed NT Pro Brain Natriuretic Pep. Stat Lab 02/09/25 14:33 Completed PT INR [Prothrombin Time INR] Stat Lab 02/09/25 14:33 Completed PTT [Activated Partial Thrombo Time] Stat Lab 02/09/25 14:33 Completed Salicylate Stat Lab 02/09/25 14:33 Completed T4 (Thyroxine) Stat Lab 02/09/25 14:33 Completed TSH [Thyroid Stimulating Hormone] Stat Lab 02/09/25 14:33 Completed Troponin I Q3H Lab 02/09/25 17:30 Ordered Troponin I Q3H Lab 02/09/25 20:30 Ordered Troponin I Stat Lab 02/09/25 14:33 Completed Urinalysis and Microscopic Stat Lab 02/09/25 14:30 Ordered Blood Culture Stat Micro 02/09/25 14:42 Received VBG [Venous Blood Gas] Stat RT 02/09/25 14:43 Completed Medical Decision Narrative: 69-year-old male presenting with new onset seizure activity. Patient was [place] the [place] earlier, bystanders called EMS because patient had a seizure. By the time EMS got there they stated that it was self aborted. Patient was postictal. Glucose was in the 100s. Brought him here for further evaluation after placing in cervical collar. On arrival, patient disgruntled. Possibly postictal, following commands, but is only oriented to person. Pupils equal and reactive. He does have hematoma on the occiput. Currently states he has no complaints. He states that he does drink, does not member the last time he drank and thinks it was a couple of days ago. History obtained with patient and largely with EMS. On physical exam, patient has hematoma on his occiput with caked blood, also has cervical collar in place. Answering questions and following commands. Alert and oriented only to person. Lungs are clear, cardiac exam normal with no murmurs gallops or rubs. No lower extremity edema. No focal neurologic deficits. Differential includes new seizure disorder, alcohol withdrawal, intoxication, other withdrawal syndrome, intracranial hemorrhage, CVA, sepsis, less likely to be meningitis given no systemic signs or symptoms among others. Patient was given sepsis fluid bolus, labs were drawn. Images ordered. On independent interpretation of workup, nonactionable CBC. Patient's VBG with acute uncompensated metabolic acidosis with pH 7.29/bicarb low at 20/CO2 normal at 43 and lactate 7.1. Prior to remainder of labs and imaging, care handed off to oncoming physician. [employer] Salesperson disclaimer Much of this encounter note is an electronic hematology supervisor spoken language to printed text. Electronic hematology supervisor of the spoken language may permit errors. Although I have reviewed the note, some errors may still exist. DO Aiden: I assumed care of patient at 3 PM at time of departure previous provider. On my assessment, he is sitting upright, neurologically intact without focal deficit. He has no specific concerns or complaints. He does have a head wound, which I irrigated and then stapled with 3 gabby. patient tolerated this well with no complications. I dependently interpreted CT scans prior to radiology reads and noted no intracranial hemorrhage, no large space- occupying lesion, no large vessel occlusion,no C-spine fracture. Please radiology read for final interpretation. Labs demonstrated a lactic acidosis, consistent with his history of generalized tonic-clonic seizure. Labs are otherwise very reassuring with no significant leukocytosis or anemia. Patient was asked to provide a urine specimen here, but he washed the cup out with water so as not to provide one. He denies any significant alcohol use to me. He states he has had a seizure before, but it has been a long time. He states he does not take seizure medicine that has been previously prescribed because insurance will not cover it, he is not interested in a new prescription today because he does not want to deal with insurance issue. We discussed seizure precaution and treatment with antiepileptic drugs to prevent seizure and harm from seizures should he change his mind. I also recommended that he at least follow-up very closely with primary care who can help refer to neurology, but he states he does not have a PCP. We provided him with a list of PCPs accepting patients. I gave him seizure precautions to abide by as an outpatient. Labs and workup are very reassuring, imaging is reassuring, and he is currently at his baseline and neurologically intact with normal vitals on cardiac telemetry. No recurrence of seizure activity here in the emergency department. I feel he is appropriate for discharge home with instructions for close outpatient follow-up and very strict return precautions. He was given instructions for staple removal and wound care in addition to the seizure precautions previously discussed. He was discharged in stable condition after all questions were answered Procedures <Adriana Wolfe DO - Last Filed: 02/09/25 17:51> Risk/Benefits of Procedure(s) Were Explained: Yes Laceration Laceration 1: Site: scalp Size (cm): 2 Description: irregular Pre-repair: wound explored, irrigated extensively and deep structures intact Skin layer closed with: other (gabby x3) Critical Care <Maxx Calhoun MD - Last Filed: 02/09/25 15:00> Critical Care Time Critical Care Time: No
[2025-02-09 14:57] LABS: Salicylate < 1.0 mg/dL (2.0-20.0)
[2025-02-09 14:59] LABS: Lactic Acid 6.5 mmol/L (0.7-2.1)
--- NOTE | 2025-02-09 14:59 | PC.NURSE ---
Dr. Calhoun notified of lactic of 6.5.
[2025-02-09 15:04] LABS: NT Pro Brain Natriuretic Pep. 173 pg/mL (0-125)
[2025-02-09 15:10] LABS: Troponin I < 0.01 ng/ml (0.00-0.034)
[2025-02-09 15:12] LABS: T4 (Thyroxine) 7.9 ug/dl (5.53-11.0)
[2025-02-09 15:26] LABS: Thyroid Stimulating Hormone 4.47 uIU/mL (0.465-4.68)
[2025-02-09 15:43] LABS: Ethyl Alcohol < 10 mg/dl (0-10)
--- NOTE | 2025-02-09 15:43 | PC.NURSE ---
PT ARRIVED BACK TO ROOM FROM CT
[2025-02-09] MEDS: 0.9 % SODIUM CHLORIDE 50 ML VIAL IV (15:46)
[2025-02-09] MEDS: SODIUM CHLORIDE 0.9% 10ML SYR (RAD ONLY) 10 ML IV (15:46)
[2025-02-09] MEDS: IOPAMIDOL-370 (76%);100ML BOTTLE 80 ML IV (15:46)
--- NOTE | 2025-02-09 16:34 | PC.NURSE ---
pt ambulated to bathroom, no assistance needed
--- NOTE | 2025-02-09 16:45 | PC.NURSE ---
pt reported that he left urine in the bathroom, once in the bathroom a specimen cup had specks of water on the side with no urine, pt reports that he gave all he could. Urinal at bs for another sample
[2025-02-09] MEDS: LACTATED RINGERS 885 ML IV (16:48)
--- NOTE | 2025-02-09 17:00 | PC.NURSE ---
pt reports that he has had a seizure before and we should have record of it. Reports that seizure was within the last 6 months and was suppose to take medicine for it but he was unable to pay for it since his insurance did not pay for it.
--- NOTE | 2025-02-09 18:01 | XR_ITS ---
PROCEDURE INFORMATION: Exam: XR Left Femur Exam date and time: 02/09/2025 6:38 PM Age: 69 years old Clinical indication: Injury or trauma; Fall; Blunt trauma; Hip; Left; Additional info: Fall, seizure, pain TECHNIQUE: Imaging protocol: Radiologic exam of the left femur. Views: 2 views. COMPARISON: CR XR FEMUR LT 2V 02/09/2025 6:38 PM FINDINGS: Bones/joints: Unremarkable. No acute fracture. Soft tissues: Unremarkable. IMPRESSION: No acute findings.
--- NOTE | 2025-02-09 18:01 | XR_ITS ---
PROCEDURE INFORMATION: Exam: XR Left Knee Exam date and time: 02/09/2025 6:38 PM Age: 69 years old Clinical indication: Injury or trauma; Fall; Blunt trauma; Knee; Left; Additional info: Fall, seizure, pain TECHNIQUE: Imaging protocol: Radiologic exam of the left knee. Views: 3 views. COMPARISON: CR XR FEMUR LT 2V 02/09/2025 6:38 PM FINDINGS: Bones/joints: Normal. Soft tissues: Normal. IMPRESSION: No acute findings.
--- NOTE | 2025-02-09 18:01 | XR_ITS ---
PROCEDURE INFORMATION: Exam: XR Left Hip Exam date and time: 02/09/2025 6:38 PM Age: 69 years old Clinical indication: Injury or trauma; Fall; Blunt trauma (contusions or hematomas); Left; Hip; Additional info: Fall, seizure, pain TECHNIQUE: Imaging protocol: Radiologic exam of the left hip. Views: 2 or 3 views hip with pelvis when performed. COMPARISON: CT ABDOMEN PELVIS W CON 06/15/2024 11:04 PM FINDINGS: Bones/joints: Unremarkable. No acute fracture. Soft tissues: Unremarkable. IMPRESSION: No acute findings.
[2025-02-09] MEDS: ACETAMINOPHEN 500MG TAB 1000 MG PO (18:27)
[2025-02-09] MEDS: IBUPROFEN 400 MG TABLET 800 MG PO (18:27)
--- NOTE | 2025-02-09 18:37 | PC.NURSE ---
XRAY AT BS
[2025-02-09 18:51] LABS: Reflex Lactic Add Lactic Reflex
--- NOTE | 2025-02-09 19:04 | CT_ITS ---
PROCEDURE INFORMATION: Exam: CT Pelvis Without Contrast, Skeleton Exam date and time: 02/09/2025 7:40 PM Age: 69 years old Clinical indication: Other: Eval pelvis, pain, fall, seizure TECHNIQUE: Imaging protocol: Computed tomography of the pelvis without contrast. Exam focused on the skeleton. Radiation optimization: All CT scans at this facility use at least one of these dose optimization techniques: automated exposure control; mA and/or kV adjustment per patient size (includes targeted exams where dose is matched to clinical indication); or iterative reconstruction. COMPARISON: CT ABDOMEN PELVIS W CON 06/15/2024 11:04 PM FINDINGS: Bones/joints: Unremarkable. No acute fracture. No dislocation. Soft tissues: Unremarkable. IMPRESSION: No fracture or dislocation of the bony pelvis
== END 2025-02-09 20:44 | disposition home or self-care (01) ==
PROVIDERS: Emergency Medicine; Emergency Provider Emergency Medicine
DX: G40.89 Other seizures (principal); E87.20 Acidosis, unspecified; J44.9 Chronic obstructive pulmonary disease, unspecified; I73.9 Peripheral vascular disease, unspecified; I70.0 Atherosclerosis of aorta; F17.210 Nicotine dependence, cigarettes, uncomplicated; S01.01XA Laceration without foreign body of scalp, initial encounter; Z91.141 Patient's other noncompliance with medication regimen due to financial hardship
CPT/HCPCS: 70450; 70496; 70498; 71045; 72125; 72192; 73502; 73552; 73562; 80053; 80320; 80329; 82803; 83605; 83735; 83880; 84436; 84443; 84484; 85025; 85610; 85730; 87040; 93005; 96361; 96374; 99285; J7120; Q9967